=== PATIENT | male | born 1970 | race Caucasian/White ===

== ENCOUNTER 2024-10-18 07:37 | Inpatient (IN) ==
--- NOTE | 2024-09-21 13:27 | PAT Medication Instructions ---
Medication Instructions Date of Service September 21, 2024 Home Medications cholecalciferol (vitamin D3) 25 mcg (1,000 unit) capsule 50 mcg PO DAILY cranberry 500 mg capsule 1,000 mg PO QAM docusate sodium 100 mg capsule (Stool Softener) 100 mg PO DAILY levothyroxine 100 mcg tablet 100 mcg PO QAM lisinopril 20 mg-hydrochlorothiazide 12.5 mg tablet 1 tab PO QAM magnesium oxide 420 mg tablet 420 mg PO HS metformin 1,000 mg tablet 1,000 mg PO BID modafinil 200 mg tablet 200 mg PO QAM naproxen 500 mg tablet (Naprosyn) 500 mg PO QAM nicotine 7 mg/24 hr daily transdermal patch 1 patch transdermal DAILY nitrofurantoin 100 mg capsule 100 mg PO BID nortriptyline 50 mg capsule 50 mg PO HS pregabalin 50 mg capsule 75 mg PO BID rosuvastatin 20 mg tablet 20 mg PO HS semaglutide 1 mg/dose (4 mg/3 mL) subcutaneous pen injector (Ozempic) 1 mg subcut WK STOP 7 days before surgery semaglutide 1 mg/dose (4 mg/3 mL) subcutaneous pen injector (Ozempic) 1 mg subcut WK ASK your surgeon for instructions naproxen 500 mg tablet (Naprosyn) 500 mg PO QAM ASK your prescriber and surgeon nicotine 7 mg/24 hr daily transdermal patch 1 patch transdermal DAILY DO NOT take the morning of surgery cholecalciferol (vitamin D3) 25 mcg (1,000 unit) capsule 50 mcg PO DAILY cranberry 500 mg capsule 1,000 mg PO QAM docusate sodium 100 mg capsule (Stool Softener) 100 mg PO DAILY lisinopril 20 mg-hydrochlorothiazide 12.5 mg tablet 1 tab PO QAM metformin 1,000 mg tablet 1,000 mg PO BID modafinil 200 mg tablet 200 mg PO QAM Take morning of surgery With a small sip of water, OTHERWISE NOTHING TO EAT OR DRINK AFTER MIDNIGHT: levothyroxine 100 mcg tablet 100 mcg PO QAM nitrofurantoin 100 mg capsule 100 mg PO BID pregabalin 50 mg capsule 75 mg PO BID Take evening before surgery magnesium oxide 420 mg tablet 420 mg PO HS metformin 1,000 mg tablet 1,000 mg PO BID nitrofurantoin 100 mg capsule 100 mg PO BID nortriptyline 50 mg capsule 50 mg PO HS pregabalin 50 mg capsule 75 mg PO BID rosuvastatin 20 mg tablet 20 mg PO HS Other Notes If you have any questions please call us at [phone] or [phone] or [phone] or [phone]
--- NOTE | 2024-09-27 13:04 | Anesthesiology Consultation ---
Date of Service September 27, 2024 Assessment & Plan (1) Encounter for pre-operative examination: Chart Review Chart Review: Patient seen in Pre Admission Testing Teaching & Discussion Pre-Anesthesia Teaching/Discussion Notes: Instructed NPO after midnight before surgery, except medications with 15 cc of water. Medication instructions provided according to the PAT guidelines. History Surgery Operation Date: 10/18/24 09:35 Proposed Procedures p L3-L5 Decompression and Fusion with Spinal Cord Monitoring - Saleem Lamb, Height/Weight Height: 5 ft 11 in Weight: 107.048 kg Allergies Allergy/AdvReac Type Severity Reaction Status Date / Time aspirin Allergy Unknown Anaphylaxis Verified 09/20/24 11:43 ibuprofen Allergy Unknown Hives Verified 09/20/24 12:14 Penicillins Allergy Unknown mother was Verified 09/20/24 11:43 allergic Medications Home Medications Medication Instructions Recorded Confirmed Last Taken cholecalciferol (vitamin D3) 25 50 mcg PO DAILY 09/20/24 09/20/24 Unknown mcg (1,000 unit) capsule cranberry 500 mg capsule 1,000 mg PO QAM 09/20/24 09/20/24 Unknown docusate sodium 100 mg capsule 100 mg PO DAILY 09/20/24 09/20/24 Unknown (Stool Softener) levothyroxine 100 mcg tablet 100 mcg PO QAM 09/20/24 09/20/24 Unknown lisinopril 20 1 tab PO QAM 09/20/24 09/20/24 Unknown mg-hydrochlorothiazide 12.5 mg tablet magnesium oxide 420 mg tablet 420 mg PO HS 09/20/24 09/20/24 Unknown metformin 1,000 mg tablet 1,000 mg PO BID 09/20/24 09/20/24 Unknown modafinil 200 mg tablet 200 mg PO QAM 09/20/24 09/20/24 Unknown naproxen 500 mg tablet (Naprosyn) 500 mg PO QAM 09/20/24 09/20/24 Unknown nicotine 7 mg/24 hr daily 1 patch transdermal DAILY 09/20/24 09/20/24 Unknown transdermal patch nitrofurantoin 100 mg capsule 100 mg PO BID 09/20/24 09/20/24 Unknown nortriptyline 50 mg capsule 50 mg PO HS 09/20/24 09/20/24 Unknown pregabalin 50 mg capsule 75 mg PO BID 09/20/24 09/20/24 Unknown rosuvastatin 20 mg tablet 20 mg PO HS 09/20/24 09/20/24 Unknown semaglutide 1 mg/dose (4 mg/3 mL) 1 mg subcut WK 09/20/24 09/20/24 Unknown subcutaneous pen injector (Ozempic) Past Medical History Medical History Bladder stone Waiting to be scheduled w/urology Cirrhosis "Mild" Hx alcoholism Diabetes HLD (hyperlipidemia) HTN (hypertension) Hypothyroidism Lumbar disc disease Lumbar foraminal stenosis Neuropathy Suspected sleep apnea states he stops breathing while asleep No formal sleep study UTI (urinary tract infection) being treated w/abx Patient denies h/o stroke, seizures, heart attack, heart failure, blood clots/DVTs or blood transfusions. Past Surgical History Surgical History Hx of colonoscopy Hx of rotator cuff surgery Social History Smoking Status: Never smoker Do You Dip or Chew Tobacco: Yes (advised) Hx Alcohol Use: Yes (quit drinking heavily in 2001 --has not drank any alcohol in 4 mos) Alcohol type: beer alcohol intake frequency: a few times a month Hx Substance Use: No substance use type: does not use Review of Systems Patient denies chest pain, shortness of breath, dyspnea on exertion, reflux, fever, chills, cough, wheezing, or palpitations. Physical Exam Vital Signs Vitals BP P TEMP SP02 % on RA RESP Physical Patient resting comfortably in chair in no acute distress, alert and oriented, responding appropriately throughout visit Full cervical extension range of motion without pain TMD __ finger breadths Mallampati Score ___ Dentition: intact, denies chipped or loose teeth, caps/crowns, implants or bridges Lungs: normal respiratory effort. Good air movement, clear throughout to auscultation, no adventitious breath sounds Cardiac: regular rate and rhythm, no murmurs noted Carotid arteries: negative bruit bilat
--- NOTE | 2024-09-27 13:08 | Anesthesiology Consultation ---
Date of Service September 27, 2024 Assessment & Plan (1) Encounter for pre-operative examination: - Check BSG DOS - Infectious disease screening: Per assessment on 09/27/24- No known recent infectious disease contacts or current infectious disease symptoms. - Semaglutide instructions: Patient informed by PAT to stop 7 days prior to surgery- voiced understanding. DOS 10/18/24. Advised last dose to be 10/06/24. - Patient acceptable risk for surgery pending surgeon-ordered PCP preop evaluation ([facility], appt 10/04). Chart Review Chart Review: Patient seen in Pre Admission Testing Teaching & Discussion Pre-Anesthesia Teaching/Discussion Notes: Instructed NPO after midnight before surgery,except medications with 15 cc of water. Medication instructions provided according to the PAT guidelines. History Surgery Operation Date: 10/18/24 09:35 Proposed Procedures p L3-L5 Decompression and Fusion with Spinal Cord Monitoring - Saleem Lamb, Height/Weight Height: 5 ft 11 in Weight: 108.6 kg Allergies Allergy/AdvReac Type Severity Reaction Status Date / Time aspirin Allergy Unknown Anaphylaxis Verified 09/20/24 11:43 ibuprofen Allergy Unknown Hives Verified 09/20/24 12:14 Penicillins Allergy Unknown mother was Verified 09/20/24 11:43 allergic Medications Home Medications Medication Instructions Recorded Confirmed Last Taken cholecalciferol (vitamin D3) 25 50 mcg PO DAILY 09/20/24 09/20/24 Unknown mcg (1,000 unit) capsule cranberry 500 mg capsule 1,000 mg PO QAM 09/20/24 09/20/24 Unknown docusate sodium 100 mg capsule 100 mg PO DAILY 09/20/24 09/20/24 Unknown (Stool Softener) levothyroxine 100 mcg tablet 100 mcg PO QAM 09/20/24 09/20/24 Unknown lisinopril 20 1 tab PO QAM 09/20/24 09/20/24 Unknown mg-hydrochlorothiazide 12.5 mg tablet magnesium oxide 420 mg tablet 420 mg PO HS 09/20/24 09/20/24 Unknown metformin 1,000 mg tablet 1,000 mg PO BID 09/20/24 09/20/24 Unknown modafinil 200 mg tablet 200 mg PO QAM 09/20/24 09/20/24 Unknown naproxen 500 mg tablet (Naprosyn) 500 mg PO QAM 09/20/24 09/20/24 Unknown nicotine 7 mg/24 hr daily 1 patch transdermal DAILY 09/20/24 09/20/24 Unknown transdermal patch nitrofurantoin 100 mg capsule 100 mg PO BID 09/20/24 09/20/24 Unknown nortriptyline 50 mg capsule 50 mg PO HS 09/20/24 09/20/24 Unknown pregabalin 50 mg capsule 75 mg PO BID 09/20/24 09/20/24 Unknown rosuvastatin 20 mg tablet 20 mg PO HS 09/20/24 09/20/24 Unknown semaglutide 1 mg/dose (4 mg/3 mL) 1 mg subcut WK 09/20/24 09/20/24 Unknown subcutaneous pen injector (Ozempic) Past Medical History Medical History (Updated 09/27/24 @ 14:19 by Blaire Osorio) Bladder stone Cirrhosis "Mild" Hx alcoholism Diabetes HLD (hyperlipidemia) HTN (hypertension) Hypothyroidism Lumbar disc disease Lumbar foraminal stenosis Neuropathy Suspected sleep apnea states he stops breathing while asleep, + snoring No formal sleep study Exercise / Class Metabolic Activity II 4-5 Yardwork/Stairs/Walk up hill (one FS: no CP, no SOB) Past Surgical History Surgical History Hx of colonoscopy Hx of rotator cuff surgery Right Past Anesthesia History No Hx of Anesthesia Complications and No Family Hx of Anesthesia Complications History of PONV No Hx of PONV and Hx of Motion Sickness (Rare) Social History Smoking Status: Never smoker Do You Dip or Chew Tobacco: Yes (Daily- Advised none DOS) Hx Alcohol Use: Yes (Hx heavy ETOH use in 2001/hx alcoholism) alcohol intake frequency: holidays/special occasions only (Seldom- a few times/year) Hx Substance Use: No substance use type: does not use Review of Systems Recent UTI s/p abx completion 09/26/24. Patient denies chest pain, shortness of breath, dyspnea on exertion, fever, chills, cough, wheezing, palpitations. Physical Exam Vital Signs BP 118/80 P 100 TEMP 98.3 SP02 97%RA RESP 16 Physical Full cervical extension range of motion. Full TMJ range of motion. TMD > 3.5 finger breaths Mallampati Score II Dentition: full upper/lower dentures Lungs: clear throughout to auscultation Cardiac: regular rate and rhythm, no murmurs noted Spine: normal Carotid arteries: negative bruit Extremities: no LE edema Short almodovar- advised to trim prior to surgery Lab Results Anesthesia Preop Results Results Anesthesia Widget: WBC 7.36 K/ul (4.8-10.8) 09/27/24 Hgb 15.1 g/dl (14.0-18.0) 09/27/24 Hct 43.6 % (42.0-52.0) 09/27/24 Plt 238 K/uL (130-400) 09/27/24 Na 138 mmol/L (136-145) 09/27/24 K 3.8 mmol/L (3.5-5.1) 09/27/24 Cl 102 mmol/L (98-107) 09/27/24 CO2 26 mmol/L (21-32) 09/27/24 BUN 10 mg/dl (6-23) 09/27/24 Creat 0.82 mg/dl (0.6-1.4) 09/27/24 Glucose Level 265 mg/dl (70-99(Fasting)) H 09/27/24 PT 9.9 Seconds (9.0-12.0) 09/27/24 PTT 25 Seconds (21-31) 09/27/24 INR 0.9 (0.9-1.1) 09/27/24 HA1c 7.3 % (4.5-5.6) H 09/27/24 Urine Color Yellow 09/27/24 Urine Appearance Cloudy (Clear) A 09/27/24 Urine pH 5.5 (4.5-7.5) 09/27/24 Urine Specific [place] 1.029 (1.000-1.030) 09/27/24 Urine Protein Trace (Negative) H 09/27/24 Urine Glucose (UA) 2+ (Negative) H 09/27/24 Urine Ketones Trace (Negative) H 09/27/24 Urine Blood Trace (Negative) H 09/27/24 Urine Nitrite Negative (Negative) 09/27/24 Urine Bilirubin Negative (Negative) 09/27/24 Urine Urobilinogen Negative (Negative) 09/27/24 Urine Leukocyte Esterase 2+ (Negative) H 09/27/24 Urine WBC (Auto) >50 /hpf (0-5) H 09/27/24 Urine RBC (Auto) 0-2 /hpf (0-2) 09/27/24 Urine Hyaline Casts (Auto) 0-2 /lpf (0-2) 09/27/24 Urine Epithelial Cells (Auto) 6-10 /hpf (0-2) H 09/27/24 Urine Bacteria (Auto) None Seen (None Seen) 09/27/24 Blood Type A Negative 09/27/24 Antibody Screen NEGATIVE 09/27/24 Testing Laboratory Results Surgeon's office made aware of elevated glucose/A1C* Urine culture (09/27/24): probable skin michelle Electrocardiogram Date: 09/27/24 NSR at 92bpm. Rightward axis. iRBBB. Chest X-Ray Date: 09/27/24 IMPRESSION: Normal chest X-ray. No acute cardiopulmonary abnormalities identified.
[2024-10-18] MEDS ORDERED: fentaNYL citrate PF 100 MCG/2 ML VIAL ONE ×2 (08:14→09:48)
[2024-10-18] MEDS ORDERED: PROPOFOL IV EMULSION 10 MG/ML 20 ML VIAL IV ONE (08:14)
[2024-10-18] MEDS ORDERED: MIDAZOLAM HCL 1 MG/ML 2ML VIAL ONE (08:14)
[2024-10-18] MEDS ORDERED: ROCURONIUM BROMIDE 10 MG/ML 5 ML VIAL IV ONE (08:14)
[2024-10-18] MEDS ORDERED: ONDANSETRON INJ 2 MG/ML 2 ML VIAL ONE (08:14)
[2024-10-18] MEDS ORDERED: DEXAMETHASONE SOD INJ 4 MG/ML VIAL ONE (08:14)
[2024-10-18] MEDS ORDERED: LIDOCAINE 2% 2 ML VIAL/AMP(20MG/ML) INFIL ONE (08:14)
[2024-10-18] MEDS: LR 60ML/HR IV SCH (08:27)
[2024-10-18] MEDS: LR 15ML/HR IV SCH (08:27)
[2024-10-18] MEDS: ACETAMINOPHEN 500 MG TAB PO SCH (08:27)
[2024-10-18] MEDS: GABAPENTIN 900 MG DOSE PO SCH (08:27)
[2024-10-18] MEDS ORDERED: ONDANSETRON INJ 2 MG/ML 2 ML VIAL IV PRN ×2 (08:53→14:00)
[2024-10-18] MEDS ORDERED: ATROPINE SULFATE 0.1 MG/ML 10ML SYR IV PRN (08:53)
[2024-10-18] MEDS ORDERED: ePHEDrine sulfate 50 MG/ML AMP IV PRN (08:53)
--- NOTE | 2024-10-18 08:53 | History & Physical Bridge Note ---
Date of Service October 18, 2024 History & Physical Bridge Note I have examined the patient, reviewed the History & Physical and in the interval since the performance of the History & Physical I have noted the following changes of clinical significance: no changes noted
--- NOTE | 2024-10-18 08:54 | History & Physical Report ---
Date of Service October 18, 2024 Assessment & Plan (1) Lumbosacral spondylosis with radiculopathy: Plan: L3-L5 decompression and fusion History of Present Illness Chief Complaint: Back and bilateral leg pain Primary Care Provider: Rob Mcdaniel PA-C This is a 53-year-old male presents problems with diagnosis of failing course of nonoperative care is here for surgical intervention. Allergies Allergy/AdvReac Type Severity Reaction Status Date / Time aspirin Allergy Severe Anaphylaxis Verified 10/18/24 08:07 ibuprofen Allergy Severe Hives Verified 10/18/24 08:07 Penicillins Allergy Unknown mother was Verified 10/18/24 08:07 allergic Home Medications Medication Instructions Recorded Confirmed Type cholecalciferol (vitamin D3) 25 50 mcg PO DAILY 09/20/24 10/18/24 History mcg (1,000 unit) capsule cranberry 500 mg capsule 1,000 mg PO QAM 09/20/24 10/18/24 History docusate sodium 100 mg capsule 100 mg PO DAILY 09/20/24 10/18/24 History (Stool Softener) levothyroxine 100 mcg tablet 100 mcg PO QAM 09/20/24 10/18/24 History lisinopril 20 2 tab PO QAM 09/20/24 10/18/24 History mg-hydrochlorothiazide 12.5 mg tablet (Zestoretic) magnesium oxide 420 mg tablet 420 mg PO HS 09/20/24 10/18/24 History metformin 1,000 mg tablet 1,000 mg PO BID 09/20/24 10/18/24 History modafinil 200 mg tablet (Provigil) 200 mg PO QAM 09/20/24 10/18/24 History naproxen 500 mg tablet (Naprosyn) 500 mg PO QAM 09/20/24 10/18/24 History nicotine 7 mg/24 hr daily 1 patch transdermal DAILY 09/20/24 09/20/24 History transdermal patch nitrofurantoin 100 mg capsule 100 mg PO BID 09/20/24 10/18/24 History nortriptyline 50 mg capsule 50 mg PO HS 09/20/24 10/18/24 History pregabalin 50 mg capsule 75 mg PO BID 09/20/24 10/18/24 History rosuvastatin 20 mg tablet 20 mg PO HS 09/20/24 10/18/24 History semaglutide 1 mg/dose (4 mg/3 mL) 1 mg subcut WK 09/20/24 10/18/24 History subcutaneous pen injector (Ozempic) Past Med/Surg History Problem List (Updated 10/18/24 @ 08:53 by Saleem Lamb DO) Lumbosacral spondylosis with radiculopathy Encounter for pre-operative examination Medical History (Updated 10/18/24 @ 08:53 by Saleem Lamb DO) Lumbar foraminal stenosis Lumbar disc disease Cirrhosis "Mild" Hx alcoholism Neuropathy HLD (hyperlipidemia) HTN (hypertension) Hypothyroidism Suspected sleep apnea states he stops breathing while asleep, + snoring No formal sleep study Diabetes Bladder stone Surgical History Hx of colonoscopy Hx of rotator cuff surgery Right Social History Smoking Status: Never smoker Tobacco Type: Smokeless Tobacco (Dip or Chew) Second Hand Exposure: No; Do You Dip or Chew Tobacco: Yes (Daily- Advised none DOS); Tobacco Cessation Education Requested by Patient: No Hx Alcohol Use: Yes (Hx heavy ETOH use in 2001/hx alcoholism) Alcohol type: beer Hx Substance Use: No Preferred Language: Swedish Communication Ability: Effective Retail Training Manager Required: No Beliefs That Will Affect Care: None Current Living Situation: Spouse Other Information That Helps Us Care for You: No Feels Safe at Home: Yes Safety Concerns: Feels Safe At This Time Assistive Devices: Denture - Upper, Denture - Lower, Glasses and Hearing Aid - Bilateral Physical Exam Physical Exam: Patient is alert and oriented Heart regular in rhythm Lungs clear Results & Data Results & Data Vital Signs (Past 12 Hours) Vital Signs Temp Pulse Resp BP Pulse Ox O2 Del Method 10/18/24 08:12 36.7 C 81 18 139/90 96 Room Air
[2024-10-18] MEDS: CLINDAMYCIN/D5W 900 MG/50 ML BAG IV SCH (09:26)
[2024-10-18] MEDS ORDERED: KETAMINE HCL 10MG/ML SYR ONE (09:41)
[2024-10-18] MEDS: BUPIVACAINE/EPINEPHRINE 0.25% 1:200,000 30 ML VIAL ONE (09:52)
[2024-10-18] MEDS: ceFAZolin 330 MG/ML 1 GM VIAL ONE (10:11)
[2024-10-18] MEDS ORDERED: SUGAMMADEX SODIUM 200 MG/2 ML VIAL IV ONE (10:56)
[2024-10-18] MEDS: FLOSEAL HEMOSTATIC MATRIX 10ML TOP ONE (10:59)
--- NOTE | 2024-10-18 11:03 | Operative Report ---
Post Operative Report Pre & Post Diagnosis Operation Date: 10/18/24 09:35 Pre-Op Diagnosis: (1) Lumbosacral spondylosis with radiculopathy: Post-Op Diagnosis: (1) Lumbosacral spondylosis with radiculopathy: I identified the patient and participated in the time-out.: Yes Procedure Operation Date: 10/18/24 09:35 Actual Procedures #1 lumbar decompression bilateral medial facetectomies and foraminotomies L3-L4 L4-5. #2 posterior spinal fusion L4-5 per #3 placed posterior instrumentation L4-5. #4 interbody fusion L4-5. #5 placement of Spira 14 x 26 mm x 2 at L4-5 per #6 posterior locally harvested morselized autograft posterior gutters. #7 placement fuse collagen sponge, with Koros in the posterior lateral gutters and os design interbody space. #8 application of versa wrap over the exposed dura. Surgeon Saleem Lamb, DO Plumber Assistant Radha Alexander Estimated Blood Loss 300 Findings See Below Patient is 5 foot 11 weighing over 106 kg with a BMI in excess of 32. The patient's body habitus did contribute to significant technical difficulty with positioning exposure and the procedure itself and at least 50% increased operative time. Specimens None Indications This is a 53-year-old male presents above his diagnosis of failing course of nonoperative care is here for surgical intervention. Description of Procedure Patient was met with identified informed consent obtained. Patient was then taken to the operative suite underwent intubation placed in a prone position on the [place] able to have the Maycol frame. All bony promises well-padded eyes inspected to ensure no external precipice spine. This point lumbar spine was prepped and draped in normal sterile fashion. Sharp dissection with the assistance of Bovie cautery performed down to and exposing the lamina and transverse processes of L4-L5. From caudal to cephalad fashion complete laminectomy of L4 was performed including bilateral male facetectomies and foraminotomies addressing severe subarticular and foraminal stenosis think. Then performed a partial laminectomy L3 with bilateral medial facetectomies addressing all subarticular stenosis. Pedicle screws was then placed in L4-L5 bilaterally with assistance of fluoroscopy process letitia placed. By way of transforaminal approach on the right discectomy of L4-5 was performed endplates guarded distal cortical bleeding bone and a 14 x 26 mm Spira cage filled with os design bone graft tapped in position. Then proceeded to the left transforaminal region at L4-5. Again discectomy performed endplates guided system subcortical bleeding bone and a second 14 x 26 mm Spira cage filled with os designed tapped in position. The rods then compressed locked in final position bilaterally. The transverse processes of L4-L5 burred to subcortical bleeding bone. Infuse collagen sponge, with Koros and local autograft placed in posterior gutters. Versa wrap placed over the exposed dura. 15 round YENNIFER drain inserted. The incision was then closed with 1 Vicryl and fascia 2-0 Vicryl subcutaneously and 4 Monocryl for final skin closure. Steri-Strips sterile dressing placed. Patient waken taken to PACU in stable condition. Please note spinal cord monitoring was utilized out the procedure no changes noted. Radha Alexander was present out the entire surgery involved the patient positioning complex portions of the surgery and final skin closure. Im ordering 20 grams of Triple [place] Collagen Powder ([id number] [id number]) to treat an incision wound that was caused by a spine procedure. The incision is approximately 2 cm(W) x 4 cm(L) into the joint (D) in size and is a full thickness wound. Triple [place] collagen comes in 1 gram packets so 20 packets were ordered. Given the size of the wound, with light to moderate exudate I chose to order a 20 day supply. The patient will be provided instructions for proper application of the collagen wound kit. The patient will be asked to apply the collagen powder daily and then cover it with sterile dressings dispensed. Collagen was selected as I expect the collagen to attract monocytes and fibroblasts, act as a sacrificial substrate for MMPs, and ultimately proved a matrix for tissue and vessel growth. The collagen will act as a primary dressing in this scenario. It is medically necessary for proper healing of these wounds to improve bioavailability and contact with each wound surface, this is also to help prevent infection of wounds and promote healing ultimately leading to a better healing outcome and limit the risk of infection. I attest to the content of the Intraoperative Record and any orders documented therein. Any exceptions are noted below.
--- NOTE | 2024-10-18 11:13 | Fluoroscopy Report ---
FL lumbar spine 2-3V CLINICAL HISTORY: L3-L5 Decompression/Fusion TECHNIQUE: 2 views were obtained with the C-arm in the OR with the above procedure. Total fluoroscopy time was 16.5 seconds. Radiation dose was 12.9 mGy. Comparison: Comparison is made to MRI lumbar spine 07/14/2020 FINDINGS/IMPRESSION: Intraoperative images were obtained of L3-L5 discectomy and fusion Please correlate with intraoperative fluoroscopy and operative report. ACT 112: Negative or not required by law. Electronically signed by: Sebastián Gómez M.D. 10/18/2024 11:11 AM
--- OUTSIDE RECORDS SUMMARY | 2024-10-18 11:22 | External Medical Summary | Summary of Care ---
Author Name Unknown Organization [facility] Address [address] [facility] [place] [address] Phone [phone] Care Team Providers Care Manager Lvn Name Role Phone Rob Mcdaniel PA-C Primary Care Provider Reason for Visit * Reason Comments Urinary Tract Infection Symptoms Pt. Was seen by /2/2024. Scheduled this coming Thursday for bladder retention testing. Nov 28. Scheduled to get kidney stone blasted from bladder region. Pt. Feels he has another UTI. Last antibiotic was Thursday. Having difficulty voiding, cloudy urine and odor noted. Frequency with small amounts. No fevers. Last bladder scan showed post void residual of 482cc. Encounter Details Date Type Department Care Team (Late Contact Info) Description 10/12/2024 9:10 AM EST [facility] [address] [place] [address] Kishore Lara PA-C [address] [place] [address] [address] Recurrent UTI* Allergies Active Allergy Reactions Criticality Noted Date Comments Aspirin Anaphylaxis High 02/02/2019 Ibuprofen Hives 02/02/2019 Empagliflozin Other (Please comment) 09/04/2024 Gave him heart palpations and made him feel like he was having a heart attack Penicillins Anaphylaxis High 02/02/2019 documented as of this encounter (statuses as of 10/12/2024) Medications levothyroxine (LEVOXYL) 100 MCG Tablet Take 1 Tablet by mouth daily first thing in the morning. Active Modafinil 100 MG Oral TabletIndication s:patient does not recall dose 2 times a day. Active Naproxen 500 MG Oral Tablet 1 Tablet 2 times a day with morning and evening meals. Active Butalbital-APAP- Caffeine 50-325-40 MG Oral Tablet (Fioricet) Take 1 Tablet by mouth. 0 Active glipiZIDE 10 MG Oral Tablet (Glucotrol) Take by mouth. 0 Active Lisinopril-hydro CHLOROthiazide 20-12.5 MG Oral Tablet Take 1 Tablet by mouth. Active Magnesium 200 MG Oral Tablet take 1 daily by mouth Active metFORMIN HCl 1000 MG Oral Tablet (Glucophage) Take 1 Tablet by mouth. Active Nortriptyline HCl 25 MG Oral Capsule (Pamelor) Take 2 Capsules by mouth. Active Rosuvastatin Calcium 5 MG Oral Tablet Take by mouth. Act violet Ozempic (0.25 or 0.5 MG/DOSE) 2 MG/1.5ML Solution Pen-injector (Semaglutide(0.2 5 or 0.5MG/DOS)) Inject under the skin. 0 Active Vitamin D3 25 MCG (1000 UT) Oral Tablet (Vitamin D3) 2 Active Pregabalin 25 MG Oral Capsule (Lyrica) Take 1 Capsule by mouth every 8 hours. Active Nicotine 7 MG/24HR Transdermal Patch 24 Hour (Nicoderm CQ) Place 1 Patch topically on the skin daily. 4 Active Docusate Sodium 100 MG Oral Capsule (Colace) Take 1 Capsule by mouth in the morning and 1 Capsule before bedtime. 4 Active Nitrofurantoin 50 MG/10ML Oral Suspension Take 100 mg by mouth in the morning and 100 mg before bedtime. 4 Active Nitrofurantoin Monohyd Macro 100 MG Oral Capsule (Macrobid) Take 1 Capsule by mouth in the morning and 1 Capsule before bedtime. Do all this for 10 days. With food until gone. 20 Capsule 4 10/22/20 24 Active documented as of this encounter (statuses as of 10/12/2024) Active Problems Problem Noted Date Diagnosed Date Type 2 diabetes mellitus 09/21/2020 Essential hypertension 08/05/2018 Hyperlipidemia 08/05/2018 Hypothyroidism 08/05/2018 documented as of this encounter (statuses as of 10/12/2024) Immunizations Name Administration Dates Next Due TDAP (age 10 and older)(Boostrix) 02/18/2021 documented as of this encounter Social History Tobacco Use Types Packs/Day Years Used Date Smoking Tobacco: Former Smokeless Tobacco: Current Chew Alcohol Use Standard Drinks/Week Comments Not Currently 0 (1 standard drink = 0.6 oz pur e alcohol) Sex and Gender Information Value Date Recorded Sex Assigned at Not on file Legal Sex Male 5:07 AM EST Gender Identity Not on file Sexual Orientation Not on file documented as of this encounter Last Filed Vital Signs Vital Sign Reading Time Taken Comments Blood Pressure 127/86 10/12/2024 9:04 AM EST Pulse 86 10/12/2024 9:04 AM EST Temperature 36.3 C (97.4 F) 10/12/2024 9:04 AM ES T Respiratory Rate 16 10/12/2024 9:04 AM EST Oxygen Saturation 99% 10/12/2024 9:04 AM EST Inhaled Oxygen Concentration - - Weight 108 kg (238 lb) 10/12/2024 9:04 AM EST Height - - Body Mass Index 32.28 03/10/2024 10:48 AM EDT documented in this encounter Patient Instructions * Patient Instructions* Kishore Lara PA-C - 10/12/2024 9:42 AM EST KEEP SCHEDULED APPOINTMENTS DIRECTED; RETURN TO or SEE PCP IF NEEDED. documented in this encounter Progress Notes * Kishore Lara PA-C - 10/12/2024 9:11 AM EST Subjective: Jaswinder Shannon is a 53 year old male. Chief Complaint Patient presents with Urinary Tract Infection Symptoms Pt. Was seen by [email or web address]/2/2024. Scheduled this coming Thursday for bladder retention testing. Nov 28. Scheduled to get kidney stone blasted from bladder region. Pt. Feels he has another UTI. Last antibiotic was Thursday. Having difficulty voiding, cloudy urine and odor noted. Frequency with small amounts. No fevers. Last bladder scan showed post void residual of 482cc. Nursing Notes: Coty Frye RN 10/12/24 0914 Signed Nursing Notes: CC: Chief Complaint Patient presents with Urinary Tract Infection Symptoms Pt. Was seen by [email or web address]/2/2024. Scheduled this coming Thursday for bladder retention testing. Nov 28. Scheduled to get kidney stone blasted from bladder region. Pt. Feels he has another UTI. Last antibiotic was Thursday. Having difficulty voiding, cloudy urine and odor noted. Frequency with small amounts. No fevers. Last bladder scan showed post void residual of 482cc. Brief Hx: Pt. Feels urinary retention caused by back nerve issues. PT. Scheduled for back surgery on . Duration/Onset: yesterday OTC meds: nothing. Accompanied by: self PT. RESTRICTED ON MEDICATION USAGE CURRENTLY DUE TO IMPENDING SURGERY. HPI: UTI SYMPTOMS COME BACK SOON HE IS OFF THE MACROBID; SEEING UROLOGY FOR THE URINARY RETENTION; FEELS THE BLADDER RETENTION MAY BE COMING FROM THE BACK ISSUES; SCHEDULED FOR SURGERY OF THE BACK NEXT WEEK; SCHEDULED FOR BLADDER SCAN THIS THURSDAY All other systems reviewed and are negative. Patient Active Problem List Diagnosis Essential hypertension Hyperlipidemia Hypothyroidism Type 2 diabetes mellitus (HCC) Current Outpatient Medications Medication Sig Dispense Refill levothyroxine (LEVOXYL) 100 MCG Tablet Take 1 Tablet by mouth daily first thing in the morning. Modafinil 100 MG Oral Tablet 2 times a day. Naproxen 500 MG Oral Tablet 1 Tablet 2 times a day with morning and evening meals. Jelyibnikh-KDQK-Ulvkwgid 50-325-40 MG Oral Tablet (Fioricet) Take 1 Tablet by mouth. glipiZIDE 10 MG Oral Tablet (Glucotrol) Take by mouth. Lisinopril-hydroCHLOROthiazide 20-12.5 MG Oral Tablet Take 1 Tablet by mouth. Magnesium 200 MG Oral Tablet take 1 daily by mouth metFORMIN HCl 1000 MG Oral Tablet (Glucophage) Take 1 Tablet by mouth. Nortriptyline HCl 25 MG Oral Capsule (Pamelor) Take 2 Capsules by mouth. Rosuvastatin Calcium 5 MG Oral Tablet Take by mouth. Ozempic (0.25 or 0.5 MG/DOSE) 2 MG/1.5ML Solution Pen-injector (Semaglutide(0.25 or 0.5MG/DOS)) Inject under the skin. Vitamin D3 25 MCG (1000 UT) Oral Tablet (Vitamin D3) Pregabalin 25 MG Oral Capsule (Lyrica) Take 1 Capsule by mouth every 8 hours. Nicotine 7 MG/24HR Transdermal Patch 24 Hour (Nicoderm CQ) Place 1 Patch topically on the skin daily. Docusate Sodium 100 MG Oral Capsule (Colace) Take 1 Capsule by mouth in the morning and 1 Capsule before bedtime. Nitrofurantoin 50 MG/10ML Oral Suspension Take 100 mg by mouth in the morning and 100 mg before bedtime. Nitrofurantoin Monohyd Macro 100 MG Oral Capsule (Macrobid) Take 1 Capsule by mouth in the morning and 1 Capsule before bedtime. Do all this for 10 days. With food until gone. 20 Capsule 0 No current facility-administered medications for this visit. Review of patient's allergies indicates: Allergen Reactions Aspirin Anaphylaxis Penicillins Anaphylaxis Ibuprofen Hives Jardiance [Empagliflozin] Other (Please comment) Gave him heart palpations and made him feel like he was having a heart attack OBJECTIVE: BP 127/86 (BP Site: Left Arm, BP Position: Sitting, BP Cuff Size: Large) | Pulse 86 | Temp 36.3 C(97.4 F) (Tympanic) | Resp 16 | Wt 108 kg (238 lb) | SpO2 99% | BMI 32.28 kg/m | BSA 2.34 m Review of Systems: See HPI. All other systems reviewed and are negative. PHYSICAL EXAM: General: alert, healthy, and no distress Head: Normocephalic, No masses, lesions, tenderness or abnormalities Eye Exam: PERRLA, extraocular movements intact, conjunctiva are pink and non- injected, sclera clear Neuro Exam: alert & oriented x 3 with fluent speech, no focal motor/sensory deficits, gait normal, reflexes normal and symmetric ASSESSMENT/PLAN: Recurrent UTI (Primary) - CULTURE, URINE, QUANTITATIVE; Future; Expected date: 10/12/2024 Other orders - Nitrofurantoin Monohyd Macro 100 MG Oral Capsule (Macrobid); Take 1 Capsule by mouth in the morning and 1 Capsule before bedtime. Do all this for 10 days. With food until gone. Kishore Lara PA-C 12/11/24 documented in this encounter Nursing Notes * Coty Frye RN - 10/12/2024 9:08 AM EST Nursing Notes: CC: Chief Complaint Patient presents with Urinary Tract Infection Symptoms Pt. Was seen by [email or web address]/2/2024. Scheduled this coming Thursday for bladder retention testing. Nov 28. Scheduled to get kidney stone blasted from bladder region. Pt. Feels he has another UTI. Last antibiotic was Thursday. Having difficulty voiding, cloudy urine and odor noted. Frequency with small amounts. No fevers. Last bladder scan showed post void residual of 482cc. Brief Hx: Pt. Feels urinary retention caused by back nerve issues. PT. Scheduled for back surgery on . Duration/Onset: yesterday OTC meds: nothing. Accompanied by: self PT. RESTRICTED ON MEDICATION USAGE CURRENTLY DUE TO IMPENDING SURGERY. documented in this encounter Plan of Treatment Upcoming Encounters Date Type Department Care Team (Late st Contact Info) Description 10/14/2024 9:00 AM EST Office Visit Urology, [place] [address] [place] [address] 11/28/2024 9:00 AM EST Procedure Only Urology, [place] [address] [place] [address] Cleo Darden MD [address] [place] [address] Pending Results Name Type Priority Associated Diagnoses Date /Time CULTURE, URINE, QUANTITATIVE Lab Routine Recurrent UTI 10/12/2024 9:45 AM EST Scheduled Orders Name Type Priority Associated Diagnoses Orde r Schedule CULTURE, URINE, QUANTITATIVE Lab Routine Recurrent UTI Expected: 10/12/2024, Expires: 10/12/2025 Health Maintenance Due Date Last Done Comments Lipid Panel 1972 Pneumococcal Vaccine: Pediatrics (0 to 5 Years) and At-Risk Patients (6 to 64 Years) (1 of 2 - PCV) 1978 Depression Screening 1984 HIV Screening 1987 Albumin/Creatinine Ratio 1990 Diabetic Eye Exam 1990 Diabetic Foot Exam 1990 Hepatitis C Screening 1990 Hepatitis B Vaccine (1 of 3 - 19+ 3-dose series) 1991 Cologuard 2017 Colonoscopy 2017 Colorectal Cancer Screening 2017 Fecal Occult Blood Test 2017 Sigmoidoscopy 2017 TSH 02/03/2020 02/02/2019 HbA1c 03/21/2021 09/21/2020, 02/15/2018 GFR 07/10/2021 07/10/2020, 02/02/2019 Zoster Vaccines (1 of 2) 2022 COVID-19 Vaccine ( season) 2024 Influenza Vaccine (FLU shot) (#1) 2024 09/06/2018, 08/21/2017, 08/10/2015, Additional history exists DTap/Tdap Vaccines (2 - Td or Tdap) 02/18/2031 02/18/2021 HPV (Gardasil) Vaccine Aged Out No lo nger eligible based on patient's age to complete this topic MENINGOCOCCAL (MENACTRA/MENVEO) Aged Out No longer eligible based on patient's age to complete this topic documented as of this encounter Medical Devices Not on filedocumented as of this encounter Visit Diagnoses Diagnosis Recurrent UTI- Primary Urinary tract infection, site not specified documented in this encounter Care Teams Manager Lvn Relationship Specialty Start Date End Date Rob Mcdaniel PA-C [address] [facility] [place] [id number] PCP - General Physician Locksmith 09/21/22 documented as of this encounter"
--- OUTSIDE RECORDS SUMMARY | 2024-10-18 11:22 | External Medical Summary | Summary of Care ---
Author Name Unknown Organization [facility] Address [address] [facility] [place] [address] Phone [phone] Care Team Providers Care Toy Painter Name Role Phone Rob Mcdaniel PA-C Primary Care Provider Reason for Visit * Reason Comments Urinary Tract Infection Symptoms Pt. Was seen by [email or web address]/2/2024. Scheduled this coming Thursday for bladder retention [...] Visit [facility] [address] [place] [address] [address] Kishore Lara PA-C [address] [place] [address] [address] Recurrent UTI* Allergies Active Allergy Reactions Criticality [...] Tract Infection Symptoms Pt. Was seen by [email or web address]/2/2024. Scheduled this coming Thursday for bladder retention [...] a day with morning and evening meals. Xohdrmumjl-UARU-Zudfcmtl 50-325-40 MG Oral Tablet (Fioricet) Take 1 [...] Tract Infection Symptoms Pt. Was seen by [email or web address]/2/2024. Scheduled this coming Thursday for bladder retention [...] 10/14/2024 9:00 AM EST Office Visit Urology, [place] [address] [place] [address] 11/28/2024 9:00 AM EST Procedure Only Urology, [place] [address] [place] [address] Cleo Darden MD [address] [place] [address] Pending Results Name Type Priority Associated Diagnoses [...] specified documented in this encounter Care Teams Toy Painter Relationship Specialty Start Date End Date Rob Mcdaniel PA-C [address] [facility] [place] [address] PCP - General Physician Trauma Counsellor 09/21/22 documented as of this encounter"
--- OUTSIDE RECORDS SUMMARY | 2024-10-18 11:22 | External Medical Summary ---
Author Name Unknown Address Unknown Organization : Laboratory Report Ordering Provider Test Date Status HUYEN MURILLO 10/03/2024 08:54:00 Final Observation Date Value Abnormality Reference (Units ) Status Color of Urine by Auto 10/03/2024 08:54:00 Yellow Light Yellow, Yellow Final Clarity, Urine 10/03/2024 08:54:00 Cloudy Abnormal Clear Final Glucose [Mass/volume] in Urine by Automated test strip 10/03/2024 08:54:00 500 Abnormal Negative (mg/dL) Final Bilirubin.total [Presence] in Urine by Automated test strip 10/03/2024 08:54:00 Negative Negative Final Ketones [Mass/volume] in Urine by Automated test strip 10/03/2024 08:54:00 15 Abnormal Negative (mg/dL) Final Specific gravity, Urine 10/03/2024 08:54:00 1.020 1.003-1.030 Final Hemoglobin [Presence] in Urine by Automated test strip 10/03/2024 08:54:00 Trace-intact Abnormal Negative Final pH, Urine 10/03/2024 08:54:00 5.5 5.0, 5.5, 6.0, 6.5, 7.0, 7.5 (units) Final Protein [Mass/volume] in Urine by Automated test strip 10/03/2024 08:54:00 30 Abnormal Negative (mg/dL) Final Urobilinogen, Urine 10/03/2024 08:54:00 0.2 0.2, 1.0 (mg/dL) Final Nitrite [Presence] in Urine by Automated test strip 10/03/2024 08:54:00 Negative Negative Final Leukocyte esterase [Presence] in Urine by Automated test strip 10/03/2024 08:54:00 Trace Abnormal Negative Final Performing Location
--- OUTSIDE RECORDS SUMMARY | 2024-10-18 11:22 | External Medical Summary | Summary of Care ---
Author Name Unknown Organization [facility] Address [address] [place] [address] Phone [phone] Care Team Providers Care Software Support Representative Name Role Phone Rob Mcdaniel PA-C Primary Care Provider Reason for Visit * Reason Onset Date Comments Appointment 09/30/2024 TRIAGE 09/30/2024 Encounter Details Date Type Department Care Team (Late st Contact Info) Description 09/30/2024 Telephone Urology, [place] [address] [place] [address] Services, Scheduling [address] [place] [address] Appointment; TRIAGE Allergies Active Allergy Reactions Criticality Noted Date Comments Aspirin Anaphylaxis High 02/02/2019 Ibuprofen Hives 02/02/2019 Empagliflozin Other (Please comment) 09/04/2024 Gave him heart palpations and made him feel like he was having a heart attack Penicillins Anaphylaxis High 02/02/2019 documented as of this encounter (statuses as of 09/30/2024) Medications levothyroxine (LEVOXYL) 100 MCG Tablet Take 1 Tablet by mouth daily first thing in the morning. Active Modafinil 100 MG Oral TabletIndicatio ns:patient does not recall dose 2 times a day. Active Naproxen 500 MG Oral Tablet 1 Tablet 2 times a day with morning and evening meals. Active Butalbital-APAP -Caffeine 50-325-40 MG Oral Tablet (Fioricet) Take 1 Tablet by mouth. 09/05/2020 Active glipiZIDE 10 MG Oral Tablet (Glucotrol) Take by mouth. 08/07/2020 Active Lisinopril-hydr oCHLOROthiazide 20-12.5 MG Oral Tablet Take 1 Tablet by mouth. Active Magnesium 200 MG Oral Tablet take 1 daily by mouth Active metFORMIN HCl 1000 MG Oral Tablet (Glucophage) Take 1 Tablet by mouth. Active Nortriptyline HCl 25 MG Oral Capsule (Pamelor) Take 2 Capsules by mouth. Active Rosuvastatin Calcium 5 MG Oral Tablet Take by mouth. Active Ozempic (0.25 or 0.5 MG/DOSE) 2 MG/1.5ML Solution Pen-injector (Semaglutide(0. 25 or 0.5MG/DOS)) Inject under the skin. 07/06/2020 Active Vitamin D3 25 MCG (1000 UT) Oral Tablet (Vitamin D3) 06/16/2022 Active Pregabalin 25 MG Oral Capsule (Lyrica) Take 1 Capsule by mouth every 8 hours. Active Nitrofurantoin Monohyd Macro 100 MG Oral Capsule (Macrobid) Take 1 Capsule by mouth in the morning and 1 Capsule before bedtime. Do all this for 10 days. With food until gone. 20 Capsule 09/30/2024 10/10/20 24 Active documented as of this encounter (statuses as of 09/30/2024) Active Problems Problem Noted Date Diagnosed Date Type 2 diabetes mellitus 09/21/2020 Essential hypertension 08/05/2018 Hyperlipidemia 08/05/2018 Hypothyroidism 08/05/2018 documented as of this encounter (statuses as of 09/30/2024) Immunizations Name Administration Dates Next Due TDAP [...] on file documented as of this encounter Miscellaneous Notes * Telephone Encounter - Felecia Mcelroy OSA - 09/30/2024 9:47 AM EST Pt has a 3 day URGENT order for Urology for a Bladder stone [N21.0] Acute cystitis without hematuria [N30.00] Please call the pt with a 3 day URGENT appt. Thank you Felecia documented in this encounter Plan of Treatment Upcoming Encounters Date Type Department Care Team (Late st Contact Info) Description 10/03/2024 8:00 AM EST Office Visit Urology, [place] [address] [place] [address] Ross Cruz MD [address] [place] [address] Health Maintenance Due Date Last Done Comments [...] Vaccines (1 of 2) 2022 COVID-19 Vaccine (1 - season) 2024 Influenza Vaccine (FLU shot) (#1) [...] Not on filedocumented as of this encounter Care Teams Software Support Representative Relationship Specialty Start Date End Date Rob Mcdaniel PA-C [address] [facility] [place] [address] PCP - General Physician Account Executive [employer] 09/21/22 documented as of this encounter
--- OUTSIDE RECORDS SUMMARY | 2024-10-18 11:22 | External Medical Summary | Summary of Care ---
Author Name Unknown Organization [facility] Address [address] [facility] [place] [address] Phone [phone] Care Team Providers Care Marker Machine Attendant Name Role Phone Rob Mcdaniel PA-C Primary Care Provider Reason for Visit * Reason Comments NCV * Evaluate & Treat - Unlimited Visits (Within 3 days (urgent)) - Authorized Specialty Diagnoses / Procedures Referred By Brandon martin Referred To Contact Urology Diagnoses Bladder stone Acute cystitis without hematuria Kishore Lara PA-C [address] [place] [address] Phone: tel: fax: Referral ID Status Reason Start Date Expiration Date Visits Requested Visits Authorized [id number] Authorized Specialty Services Required 09/30/[phone] Encounter Details Date Type Department Care Team (Late st Contact Info) Description 10/14/2024 9:00 AM EST Office Visit Urology, [place] [address] [place] [address] Retention of urine* Allergies Active Allergy Reactions Criticality Noted Date Comments Aspirin Anaphylaxis High 02/02/2019 Ibuprofen Hives 02/02/2019 Empagliflozin Other (Please comment) 09/04/2024 Gave him heart palpations and made him feel like he was having a heart attack Penicillins Anaphylaxis High 02/02/2019 documented as of this encounter (statuses as of 10/14/2024) Medications levothyroxine (LEVOXYL) 100 MCG Tablet Take [...] as of this encounter (statuses as of 10/14/2024) Active Problems Problem Noted Date Diagnosed Date Type 2 diabetes mellitus 09/21/2020 Essential hypertension 08/05/2018 Hyperlipidemia 08/05/2018 Hypothyroidism 08/05/2018 documented as of this encounter (statuses as of 10/14/2024) Immunizations Name Administration Dates Next Due TDAP [...] Sign Reading Time Taken Comments Blood Pressure 133/81 10/14/2024 9:36 AM EST Pulse 99 10/14/2024 9:36 AM EST Temperature 36.8 C (98.2 F) 10/14/2024 9:36 AM ES T Respiratory Rate - - Oxygen Saturation - - Inhaled Oxygen Concentration - - Weight - - Height - - Body Mass Index - - documented in this encounter Progress Notes * Maria Victoria Connor RN - 10/14/2024 2:51 PM EST Patient of Dr. Darden's here today for urodynamics study to evaluate bladder function. Patient has a history of dysuria, urgency, frequency. Patient bladder scanned prior to procedure for 400ml. 16 fr silicone coude catheter used to drain the bladder. CMG emg bladder voiding pressure test, intraabdominal voiding pressure test w/uroflow completed with report to . CMG= 1st ceuantwzy=554 ml 1st desire to ebog=315 ml Strong tlvienrtu=821 ml Urgent nwlakwcbx=850 ml Full wxtglwgfb=366 ml Bladder yytvdnjj=749 ml Voided volume=0ml UCI=891 ml Patient was able to void 200cc in the BR. Patient taught CIC. He is recommended to do this 3-4 x daily. He was able to demonstrate how to CIC. He drained the additional 350cc. Supplies given. Will send order to [facility] Patient tolerated procedure well. Patient to rtc with Dr. Darden. Reinforced post procedure instructions-increase fluids today to flush bladder(unless on fluid restriction), it is normal to experience slight burning today due to catheter, please call for any signs/symptoms of bladder infection, ie. fever, chills, burning with urination. documented in this encounter Plan of Treatment Upcoming Encounters Date Type Department Care Team (Late st Contact Info) Description 11/28/2024 9:00 AM EST Procedure Only Urology, [place] [address] [place] [address] Cleo Darden MD [address] [place] [address] Scheduled Orders Name Type Priority Associated Diagnoses Orde r Schedule CYSTOMETROGRAM W/VOIDING PRESSURE Procedures Routine Retention of urine Ordered: 10/14/2024 URINE FLOW MEASUREMENT, COMPLEX Procedures Routine Retention of urine Ordered: 10/14/2024 EMG, ANAL SPHINCTER Procedures Routine Retention of urine Ordered: 10/14/2024 VOIDING PRESSURE TEST, INTRA-ABDOMINAL Procedures Routine Retention of urine Ordered: 10/14/2024 Health Maintenance Due Date Last Done Comments [...] Not on filedocumented as of this encounter Procedures Procedure Name Priority Date/Time Associated Diagnosis Comments URINALYSIS, POINT OF CARE JOSELYN 10/14/2024 9:21 AM EST documented in this encounter Results * (ABNORMAL) URINALYSIS, POINT OF CARE (10/14/2024 9:21 AM EST) Color, Urine Yellow Light Yellow, Yellow 10/14/2024 9:24 AM [place] Clarity, Urine Cloudy(A) Clear 10/14/2024 9:24 AM [place] Glucose, Urine 100(A) Negative mg/dL 10/14/2024 9:24 AM [place] Bilirubin, Urine Negative Negative 10/14/2024 9:24 AM [place] Ketone, Urine 15(A) Negative mg/dL 10/14/2024 9:24 AM [place] Specific [place], Urine 1.020 1.003 - 1.030 10/14/2024 9:24 AM [place] Blood, Urine Trace-intact (A) Negative 10/14/2024 9:24 AM [place] pH, Urine 6.0 5.0, 5.5, 6.0, 6.5, 7.0, 7.5 units 10/14/2024 9:24 AM [place] Protein, Urine 30(A) Negative mg/dL 10/14/2024 9:24 AM [place] Urobilinogen, Urine 0.2 0.2, 1.0 mg/dL 10/14/2024 9:24 AM [place] Nitrite, Urine Negative Negative 10/14/2024 9:24 AM [place] Esterase, Urine Moderate(A) Negative 10/14/2024 9:24 AM EST [facility] Urine 10/14/2024 9:21 AM EST 10/14/2024 9:24 AM EST us No Physician Data Unknown LAB POINT OF C ARE TEST DOCKED DEVICE UNSOLICITED RESULTS Final Result [facility] [address] [facility] [place] [id number] documented in this encounter Visit Diagnoses Diagnosis Retention of urine- Primary Retention of urine, unspecified documented in this encounter Care Teams Marker Machine Attendant Relationship Specialty Start Date End Date Rob Mcdaniel PA-C [address] [place] [id number] PCP - General Physician Sales Designer 09/21/22 documented as of this encounter
--- OUTSIDE RECORDS SUMMARY | 2024-10-18 11:22 | External Medical Summary ---
Author Name Unknown Address Unknown Organization : Laboratory Report Ordering Provider Test Date Status NO,UNKNOWN 10/14/2024 09:21:00 Final Observation Date Value Abnormality Reference (Units ) Status Color of Urine by Auto 10/14/2024 09:21:00 Yellow Light Yellow, Yellow Final Clarity, Urine 10/14/2024 09:21:00 Cloudy Abnormal Clear Final Glucose [Mass/volume] in Urine by Automated test strip 10/14/2024 09:21:00 100 Abnormal Negative (mg/dL) Final Bilirubin.total [Presence] in Urine by Automated test strip 10/14/2024 09:21:00 Negative Negative Final Ketones [Mass/volume] in Urine by Automated test strip 10/14/2024 09:21:00 15 Abnormal Negative (mg/dL) Final Specific gravity, Urine 10/14/2024 09:21:00 1.020 1.003-1.030 Final Hemoglobin [Presence] in Urine by Automated test strip 10/14/2024 09:21:00 Trace-intact Abnormal Negative Final pH, Urine 10/14/2024 09:21:00 6.0 5.0, 5.5, 6.0, 6.5, 7.0, 7.5 (units) Final Protein [Mass/volume] in Urine by Automated test strip 10/14/2024 09:21:00 30 Abnormal Negative (mg/dL) Final Urobilinogen, Urine 10/14/2024 09:21:00 0.2 0.2, 1.0 (mg/dL) Final Nitrite [Presence] in Urine by Automated test strip 10/14/2024 09:21:00 Negative Negative Final Leukocyte esterase [Presence] in Urine by Automated test strip 10/14/2024 09:21:00 Moderate Abnormal Negative Final Performing Location
--- OUTSIDE RECORDS SUMMARY | 2024-10-18 11:22 | External Medical Summary | Summary of Care ---
Author Name Unknown Organization [facility] Address [address] [facility] [facility] [place] [address] Phone [phone] Care Team Providers Care Digital Community Manager Name Role Phone Rob Mcdaniel PA-C Primary Care Provider Reason for Visit * Reason Comments Kidney Stone * Evaluate & Treat - Unlimited Visits (Within 3 days (urgent)) - Pending Review Specialty Diagnoses / Procedures Referred By Brandon martin Referred To Contact Urology Diagnoses Bladder stone Acute cystitis without hematuria Kishore Lara PA-C [address] [place] [address] Phone: tel: fax: Referral ID Status Reason Start Date Expiration Date Visits Requested Visits Authorized [id number] Pending Review Specialty Services Required [phone] Encounter Details Date Type Department Care Team (Late st Contact Info) Description 10/03/2024 8:00 AM EST [facility] [address] [place] [address] Ross Cruz MD [address] [place] [address] Urinary retention*; Recurrent UTI; Bladder stone; Acute cystitis without hematuria [N30.00] Allergies Active Allergy Reactions Criticality Noted Date Comments Aspirin Anaphylaxis High 02/02/2019 Ibuprofen Hives 02/02/2019 Empagliflozin Other (Please comment) 09/04/2024 Gave him heart palpations and made him feel like he was having a heart attack Penicillins Anaphylaxis High 02/02/2019 documented as of this encounter (statuses as of 10/03/2024) Medications levothyroxine (LEVOXYL) 100 MCG Tablet Take 1 Tablet by mouth daily first thing in the morning. Active Modafinil 100 MG Oral TabletIndicatio ns:patient does not recall dose 2 times a day. Active Naproxen 500 MG Oral Tablet 1 Tablet 2 times a day with morning and evening meals. Active Butalbital-APAP -Caffeine 50-325-40 MG Oral Tablet (Fioricet) Take 1 Tablet by mouth. 09/05/20 Active glipiZIDE 10 MG Oral Tablet (Glucotrol) Take by mouth. 08/07/20 Active Lisinopril-hydr oCHLOROthiazide 20-12.5 MG Oral Tablet [...] 25 or 0.5MG/DOS)) Inject under the skin. 07/06/20 Active Vitamin D3 25 MCG (1000 UT) Oral Tablet (Vitamin D3) 06/16/20 Active Pregabalin 25 MG Oral Capsule (Lyrica) Take 1 Capsule by mouth every 8 hours. Active Nicotine 7 MG/24HR Transdermal Patch 24 Hour (Nicoderm CQ) Place 1 Patch topically on the skin daily. 09/20/20 24 Active Docusate Sodium 100 MG Oral Capsule (Colace) Take 1 Capsule by mouth in the morning and 1 Capsule before bedtime. 09/20/20 24 Active Nitrofurantoin 50 MG/10ML Oral Suspension Take 100 mg by mouth in the morning and 100 mg before bedtime. 09/20/20 24 Active Nitrofurantoin Monohyd Macro 100 MG Oral Capsule (Macrobid) Take 1 Capsule by mouth in the morning and 1 Capsule before bedtime. Do all this for 10 days. With food until gone. 20 Capsule 09/30/20 24 024 Discontinued documented as of this encounter (statuses as of 10/03/2024) Active Problems Problem Noted Date Diagnosed Date Type 2 diabetes mellitus 09/21/2020 Essential hypertension 08/05/2018 Hyperlipidemia 08/05/2018 Hypothyroidism 08/05/2018 documented as of this encounter (statuses as of 10/03/2024) Immunizations Name Administration Dates Next Due TDAP [...] Sign Reading Time Taken Comments Blood Pressure 144/85 10/03/2024 8:28 AM EST Pulse 62 10/03/2024 8:28 AM EST Temperature 36.7 C (98 F) 10/03/2024 8:28 AM EST Respiratory Rate - - Oxygen Saturation - - Inhaled Oxygen Concentration - - Weight - - Height - - Body Mass Index - - documented in this encounter Progress Notes * Cleo Obrien MD - 10/03/2024 12:06 PM EST Please see cosigned note. * Ross Cruz MD - 10/03/2024 8:04 AM EST [facility] [address] [place] [address] Name: Jaswinder Shannon Date: 10/03/24 Time: 8:04 AM Location: Urology Clinic HPI: Jaswinder Shannon is a 53 year old male with history of HTN, T2DM on Ozempic who presents with urinary tract infection and bladder stone. Beginning in July 2024, he began to experience cloudy and malodorous urine. He then went on todevelop urinary hesitancy and painful urination. He was evaluated by Urgent Care at this time, urine culture was obtained which grew Enterococcus. He was treated with a course of Macrobid. He experienced some relief with the Macrobid but his symptoms returned in full force after he completed his course of antibiotics. He then returned to Urgent Care, had another positive urine culture, and was again treated with Macrobid. In total, he was had 4 positive urine cultures, most recently 09/30/2024,all growing Enterococcus, and all treated with Macrobid. Renal ultrasound was obtained on 09/09/2024 demonstrating 1.8 cm bladder stone and thickened irregular bladder wall consistent with chronic cystitis. I have reviewed the imaging and agree with the interpretation. [facility] at [facility] in mid November but has back surgery scheduled on 10/19/2024 and would like to get his bladder stone taken care of sooner if able. Patient has severe spinal stenosis and lumbar disc disease. He was told that this may be causing his incomplete bladder emptying. He denies fever or chills, gross hematuria. He endorses significant dysuria, urinary urgency and frequency. He also endorses incomplete emptying. PVR today 579 cc. No past medical history on file. No past surgical history on file. Social History Socioeconomic History Marital status: Single Spouse name: Not on file Number of children: Not on file Years of education: Not on file Highest education level: Not on file Occupational History Not on file Tobacco Use Smoking status: Former Smokeless tobacco: Current Types: Chew Vaping Use Vaping status: Never Used Substance and Sexual Activity Alcohol use: Not Currently Drug use: Not Currently Sexual activity: Not on file Other Topics Concern Not on file Social History Narrative Not on file Social Needs Financial Resource Strain: Medium Risk (04/12/2024) Received from [facility] Ambulatory Overall Financial Resource Strain (CARDIA) Difficulty of Paying Living Expenses: Somewhat hard Food Insecurity: No Food Insecurity (04/12/2024) Received from [facility] Ambulatory Hunger Vital Sign Worried About Running Out of Food in the Last Year: Never true Ran Out of Food in the Last Year: Never true Transportation Needs: No Transportation Needs (04/12/2024) Received from [facility] Ambulatory PRAPARE - Transportation Lack of Transportation (Medical): No Lack of Transportation (Non-Medical): No Social Connections: Socially Integrated (04/12/2024) Received from [facility] Ambulatory Social Connection and Isolation Panel [NHANES] Frequency of Communication with Friends and Family: More than three times a week Frequency of Social Gatherings with Friends and Family: Three times a week Attends Mu-Ism Services: 1 to 4 times per year Active Member of Clubs or Organizations: Yes Attends Club or Organization Meetings: More than 4 times per year Marital Status: Living with partner Housing Stability: Not on file No family history on file. Current Outpatient Medications Medication Sig Dispense Refill Nicotine 7 MG/24HR Transdermal Patch 24 Hour (Nicoderm CQ) Place 1 Patch topically on the skin daily. Docusate Sodium 100 MG Oral Capsule (Colace) Take 1 Capsule by mouth in the morning and 1 Capsule before bedtime. Nitrofurantoin 50 MG/10ML Oral Suspension Take 100 mg by mouth in the morning and 100 mg before bedtime. levothyroxine (LEVOXYL) 100 MCG Tablet Take 1 Tablet by mouth daily first thing in the morning. Modafinil 100 MG Oral Tablet 2 times a day. Naproxen 500 MG Oral Tablet 1 Tablet 2 times a day with morning and evening meals. Cvqstrqbjc-GFRC-Mtfnkeer 50-325-40 MG Oral Tablet (Fioricet) Take 1 Tablet by mouth. glipiZIDE 10 MG Oral Tablet (Glucotrol) Take by mouth. (Patient not taking: Reported on 09/18/2024) Lisinopril-hydroCHLOROthiazide 20-12.5 MG Oral Tablet Take 1 [...] 1 Capsule by mouth every 8 hours. No current facility-administered medications for this visit. Review of patient's allergies indicates: Allergen Reactions Aspirin Anaphylaxis Penicillins Anaphylaxis Ibuprofen Hives Jardiance [Empagliflozin] Other (Please comment) Gave him heart palpations and made him feel like he was having a heart attack Review of Symptoms: Constitutional: no fever, no chills, no sweats, no weight loss, no weakness and no fatigue Resp: no cough, no sputum, no wheezing, no shortness of breath and no dyspnea on exertion Cardiac: no chest pain, heart palpitation GI: no pain, no heartburn, no diarrhea, no constipation, no blood/melena, no nausea, no vomiting Musculoskeletal: no significant joint or muscle pain and no swelling : as above Neuro: no memory loss, no weakness, no numbness or tingling and no vertigo Heme: No abnormal bleeding, no bruising, no anticoagulation Endo: no unplanned weight change, no fatigue, no excessive thirst Skin: no rash, no itching, no new/changing skin lesions and no color change ALL other review of systems is negative except for the history of present illness. Physical Exam: VITAL SIGNS: BP 144/85 (BP Site: Right Arm, BP Position: Sitting, BP Cuff Size: Regular) | Pulse 62| Temp 36.7 C (98 F) (Tympanic) Constitutional: Well developed, well nourished, no distress Head: normocephalic, atraumatic Neck: supple, range of motion with normal limits Pulmonary: Nonlabored breathing on room air Abd: soft, non tender, non distended, no guarding, no masses : deferred Musculoskeletal: no deformities, range of motion within normal limits, no tenderness, no edema Neurological: alert, oriented x 3, no gross sensory or motor deficits Skin: warm, dry, no erythema, no new skin lesions or rashes visible Labs: Creatinine Results: Lab Results Component Value Date/Time [facility] 1.1 02/02/2019 04:33 PM Most recent PSA 1.9 on 04/16/2024 Imaging: Renal ultrasound 09/09/2024 FINDINGS: Right kidney: 12.3 cm. No hydronephrosis or nephrolithiasis. No renal mass. Left kidney: 11.6 cm. No hydronephrosis or nephrolithiasis. No renal mass. Urinary bladder: Urinary bladder wall is thickened and irregular. Intraluminal stone measuring 18 mm. Aorta: Abdominal aorta: Proximal 2.9 x 2.7 cm. Mid 2.2 x 2.2 cm. Distal 1.8 x 2.1 cm. IMPRESSION IMPRESSION: 1. Normal appearance of both kidneys. 2. Bladder stone. Irregular thickened urinary bladder wall consistent with chronic cystitis. Consider cystoscopy. Impression: 53 year old male with UTI and bladder stone. Plan: - return for CIC teaching with nursing in the next few days, first available on nursing schedule - we will arrange for cystoscopy and urodynamics to assess bladder function in the next few weeks after his back surgery Patient seen, discussed with Dr. Obrien. Ross Cruz MD 8:04 AM 10/03/2024 I have discussed the patient's management with the resident/fellow physician and agree with the note. Please refer to the documented findings and plan of care. This patient's visit today consisted ofan evaluation. I was present and confirmed the findings of the history and exam. Cleo Obrien MD documented in this encounter Miscellaneous Notes * Addendum Note - Alessandra Fuentes MED ASSIST - 10/03/2024 12:49 PM ESTAddended by: ALESSANDRA FUENTES on: 10/03/2024 12:49 PM Modules accepted: Orders * Addendum Note - Cleo Obrien MD - 10/03/2024 12:07 PM ESTAddended by: CLEO OBRIEN on: 10/03/2024 12:07 PM Modules accepted: Level of Service documented in this encounter Plan of Treatment Upcoming Encounters Date Type Department Care Team (Late st Contact Info) Description 10/14/2024 9:00 AM EST Office Visit [facility], [place] [address] [place] [address] 11/28/2024 9:00 AM EST Procedure Only [facility] [place] [address] [place] [address] Cleo Obrien MD [address] [place] [address] Scheduled Orders Name Type Priority Associated Diagnoses Orde r Schedule CYSTOMETROGRAM, COMPLEX Procedures Routine Urinary retention Ordered: 10/03/2024 Health Maintenance Due Date Last Done Comments [...] Diagnosis Comments URINALYSIS, POINT OF CARE JOSELYN 10/03/2024 8:54 AM EST POST VOID RESIDUAL BLADDER US (NURSE ONLY) Routine 10/03/2024 Urinary retention Recurrent UTI Bladder stone documented in this encounter Results * (ABNORMAL) URINALYSIS, POINT OF CARE (10/03/2024 8:54 AM EST) Color, Urine Yellow Light Yellow, Yellow 10/03/2024 9:47 AM EST [facility] Clarity, Urine Cloudy(A) Clear 10/03/2024 9:47 AM EST [facility] Glucose, Urine 500(A) Negative mg/dL 10/03/2024 9:47 AM EST [facility] Bilirubin, Urine Negative Negative 10/03/2024 9:47 AM EST [facility] Ketone, Urine 15(A) Negative mg/dL 10/03/2024 9:47 AM [place] Specific [place], Urine 1.020 1.003 - 1.030 10/03/2024 9:47 AM [facility] Blood, Urine Trace-intact (A) Negative 10/03/2024 9:47 AM [place] pH, Urine 5.5 5.0, 5.5, 6.0, 6.5, 7.0, 7.5 units 10/03/2024 9:47 AM [place] Protein, Urine 30(A) Negative mg/dL 10/03/2024 9:47 AM [facility] Urobilinogen, Urine 0.2 0.2, 1.0 mg/dL 10/03/2024 9:47 AM [facility] Nitrite, Urine Negative Negative 10/03/2024 9:47 AM [facility] Esterase, Urine Trace(A) Negative 10/03/2024 9:47 AM [facility] Urine 10/03/2024 8:54 AM EST 10/03/2024 9:47 AM EST us Ross Cruz MD LAB POINT OF CARE TE ST DOCKED DEVICE UNSOLICITED RESULTS Final Result [facility] [address] [place] [address] * POST VOID RESIDUAL BLADDER US (NURSE ONLY) (10/03/2024) Post Void Residual (PVR) - Urine 579 mL Ross Cruz MD SURGERY Final Result documented in this encounter Visit Diagnoses Diagnosis Urinary retention- Primary Retention of urine, unspecified Recurrent UTI Urinary tract infection, site not specified Bladder stone Other calculus in bladder Acute cystitis without hematuria [N30.00] Acute cystitis documented in this encounter Care Teams Digital Community Manager Relationship Specialty Start Date End Date Rob Mcdaniel PA-C [address] [address] [place] [id number] PCP - General Physician Solar Sales Representative And Assessor 09/21/22 documented as of this encounter"
--- OUTSIDE RECORDS SUMMARY | 2024-10-18 11:22 | External Medical Summary | Summary of Care ---
Author Name Unknown Organization [facility] Address [address] [facility] [place] [address] Phone [phone] Care Team Providers Care Automotive Worker Foreman Name Role Phone Rob Mcdaniel PA-C Primary Care Provider Reason for Visit * Reason Comments Kidney Stone * Evaluate & Treat - Unlimited Visits (Within 3 days (urgent)) - Pending Review Specialty Diagnoses / Procedures Referred By Brandon martin Referred To Contact Urology Diagnoses Bladder stone Acute cystitis without hematuria Kishore Lara PA-C [address] [place] [address] Phone: tel: fax: Referral ID Status Reason Start Date Expiration Date Visits Requested Visits Authorized [id number] Pending Review Specialty Services Required [phone] Encounter Details Date Type Department Care Team (Late st Contact Info) Description 10/03/2024 8:00 AM EST Office Visit [facility] [address] [place] [address] Ross Cruz MD [address] [place] [address] Urinary retention*; Recurrent UTI; Bladder stone; Acute [...] Cruz MD - 10/03/2024 8:[address] [facility] [address] [place] [address] Name: Jaswinder Shannon Date: 10/03/24 Time: 8:04 [...] [facility] in mid November but has back surgery [...] Resource Strain: Medium Risk (04/12/2024) Received from [facility] Ambulatory Overall Financial Resource Strain (CARDIA) Difficulty of Paying Living Expenses: Somewhat hard Food Insecurity: No Food Insecurity (04/12/2024) Received from [facility] Ambulatory Hunger Vital Sign Worried About Running Out of Food in the Last Year: Never true Ran Out of Food in the Last Year: Never true Transportation Needs: No Transportation Needs (04/12/2024) Received from [facility] Ambulatory PRAPARE - Transportation Lack of Transportation (Medical): No Lack of Transportation (Non-Medical): No Social Connections: Socially Integrated (04/12/2024) Received from [facility] Ambulatory Social Connection and Isolation Panel [NHANES] Frequency of Communication with Friends and Family: More than three times a week Frequency of Social Gatherings with Friends and Family: Three times a week Attends Christianity Services: 1 to 4 times per year [...] a day with morning and evening meals. [id number] 50-325-40 MG Oral Tablet (Fioricet) Take 1 [...] 10/14/2024 9:00 AM EST Office Visit Urology, [place] [address] [place] [address] 11/28/2024 9:00 AM EST Procedure Only Urology, [place] [address] [place] [address] Cleo Obrien MD [address] [place] [address] Scheduled Orders Name Type Priority Associated Diagnoses [...] Light Yellow, Yellow 10/03/2024 9:47 AM EST [facility] Clarity, Urine Cloudy(A) Clear 10/03/2024 9:47 AM EST [facility] Glucose, Urine 500(A) Negative mg/dL 10/03/2024 9:47 AM EST [facility] Bilirubin, Urine Negative Negative 10/03/2024 9:47 AM EST [facility] Ketone, Urine 15(A) Negative mg/dL 10/03/2024 9:47 AM [facility] Specific [place], Urine 1.020 1.003 - 1.030 10/03/2024 9:47 AM [facility] Blood, Urine Trace-intact (A) Negative 10/03/2024 9:47 AM [facility] pH, Urine 5.5 5.0, 5.5, 6.0, 6.5, 7.0, 7.5 units 10/03/2024 9:47 AM [facility] Protein, Urine 30(A) Negative mg/dL 10/03/2024 9:47 AM [facility] Urobilinogen, Urine 0.2 0.2, 1.0 mg/dL 10/03/2024 9:47 AM [facility] Nitrite, Urine Negative Negative 10/03/2024 9:47 AM [facility] Esterase, Urine Trace(A) Negative 10/03/2024 9:47 AM [facility] Urine 10/03/2024 8:54 AM EST 10/03/2024 9:47 AM EST us Ross Cruz MD LAB POINT OF CARE TE ST DOCKED DEVICE UNSOLICITED RESULTS Final Result [facility] [address] [place] [address] * POST VOID RESIDUAL BLADDER US (NURSE [...] cystitis documented in this encounter Care Teams Automotive Worker Foreman Relationship Specialty Start Date End Date Rob Mcdaniel PA-C [address] [place] [address] [place] [address] PCP - General Physician Acquisition Consultant 09/21/22 documented as of this encounter"
--- OUTSIDE RECORDS SUMMARY | 2024-10-18 11:22 | External Medical Summary | Summary of Care ---
Author Name Unknown Organization [facility] Address [address] [place] [address] Phone [phone] Care Team Providers Care Cushion Maker Name Role Phone Rob Mcdaniel PA-C Primary Care Provider Reason for Visit * Reason Onset Date Comments Appointment 09/30/2024 TRIAGE 09/30/2024 Encounter Details Date Type Department Care Team (Late st Contact Info) Description 09/30/2024 Telephone Urology, [place] [address] [place] [address] Services, Scheduling [address] [place] [address] Appointment; TRIAGE Allergies Active Allergy Reactions Criticality [...] food until gone. 20 Capsule 09/30/2024 10/10/20 Active documented as of this encounter (statuses [...] encounter Miscellaneous Notes * Telephone Encounter - Keely Mijares LPN - 09/30/2024 10:57 AM EST Scheduled with [facility] 10/03/24 * Telephone Encounter - Felecia Mcelroy OSA [...] 10/03/2024 8:00 AM EST Office Visit Urology, [place] [address] [place] [id number] Ross Cruz MD [address] [place] [address] Health Maintenance Due Date Last Done Comments [...] filedocumented as of this encounter Care Teams Cushion Maker Relationship Specialty Start Date End Date Rob Mcdaniel PA-C 1 [facility] [place] [address] PCP - General Physician Cloth Bleaching Range Back Tender 09/21/22 documented as of this encounter
--- OUTSIDE RECORDS SUMMARY | 2024-10-18 11:22 | External Medical Summary | Summary of Care ---
Author Name Unknown Organization [facility] Address [address] [facility] [place] [address] Phone [phone] Care Team Providers Care Driver'S License Examiner Name Role Phone Rob Mcdaniel PA-C Primary Care Provider Reason for Visit * Reason Comments Kidney Stone * Evaluate & Treat - Unlimited Visits (Within 3 days (urgent)) - Pending Review Specialty Diagnoses / Procedures Referred By Brandon martin Referred To Contact Urology Diagnoses Bladder stone Acute cystitis without hematuria Kishore Lara PA-C [address] [place] [address] Phone: tel: fax: Referral ID Status Reason Start Date Expiration Date Visits Requested Visits Authorized [id number] Pending Review Specialty Services Required [phone] Encounter Details Date Type Department Care Team (Late st Contact Info) Description 10/03/2024 8:00 AM EST Office Visit [facility] [address] [place] [address] Ross Cruz MD [address] [place] [address] Acute cystitis without hematuria* Allergies Active Allergy Reactions Criticality Noted Date [...] morning and 100 mg before bedtime. 09/20/20 Active Nitrofurantoin Monohyd Macro 100 MG Oral [...] Index - - documented in this encounter Plan of Treatment Upcoming Encounters Date Type Department Care Team (Late st Contact Info) Description 10/14/2024 9:00 AM EST Office Visit Urology, [place] [address] [place] [address] 11/28/2024 9:00 AM EST Procedure Only Urology, [place] [address] [place] [address] Cleo Darden MD [address] [place] [address] Scheduled Orders Name Type Priority Associated Diagnoses Orde r Schedule CYSTOMETROGRAM, COMPLEX Procedures Routine Acute cystitis without hematuria Ordered: 10/03/2024 Health Maintenance Due Date Last [...] Associated Diagnosis Comments URINALYSIS, POINT OF CARE [facility] 10/03/2024 8:54 AM EST documented in this encounter Results * (ABNORMAL) URINALYSIS, POINT OF CARE (10/03/2024 8:54 AM EST) Color, Urine Yellow Light Yellow, Yellow 10/03/2024 9:47 AM EST [facility] Clarity, Urine Cloudy(A) Clear 10/03/2024 9:47 AM EST [facility] Glucose, Urine 500(A) Negative mg/dL 10/03/2024 9:47 AM EST [facility] Bilirubin, Urine Negative Negative 10/03/2024 9:47 AM EST [facility] Ketone, Urine 15(A) Negative mg/dL 10/03/2024 9:47 AM EST [facility] Specific [place], Urine 1.020 1.003 - 1.030 10/03/2024 9:47 AM EST [facility] Blood, Urine Trace-intact (A) Negative 10/03/2024 9:47 AM EST [facility] pH, Urine 5.5 5.0, 5.5, 6.0, 6.5, 7.0, 7.5 units 10/03/2024 9:47 AM EST [facility] Protein, Urine 30(A) Negative mg/dL 10/03/2024 9:47 AM EST [facility] Urobilinogen, Urine 0.2 0.2, 1.0 mg/dL 10/03/2024 9:47 AM EST [facility] Nitrite, Urine Negative Negative 10/03/2024 9:47 AM EST [facility] Esterase, Urine Trace(A) Negative 10/03/2024 9:47 AM EST [facility] Urine 10/03/2024 8:54 AM EST 10/03/2024 9:47 AM EST Ross Cruz MD LAB POINT OF CARE TE ST DOCKED DEVICE UNSOLICITED RESULTS Final Result [facility] [address] [facility] [address] documented in this encounter Visit Diagnoses Diagnosis Acute cystitis without hematuria- Primary Acute cystitis documented in this encounter Care Teams Driver'S License Examiner Relationship Specialty Start Date End Date Rob Mcdaniel PA-C [address] [place] [place] [address] [place] [id number] PCP - General Physician Mix Chemist 09/21/22 documented as of this encounter
--- OUTSIDE RECORDS SUMMARY | 2024-10-18 11:22 | External Medical Summary | Summary of Care ---
Author Name Unknown Organization [facility] Address [address] [facility] [place] [address] Phone [phone] Care Team Providers Care Key Entry Operator Name Role Phone Rob Mcdaniel PA-C Primary Care Provider Reason for Visit * Reason Comments Kidney Stone * Evaluate & Treat - Unlimited Visits (Within 3 days (urgent)) - Pending Review Specialty Diagnoses / Procedures Referred By Brandon martin Referred To Contact Urology Diagnoses Bladder stone Acute cystitis without hematuria Kishore Lara PA-C [address] [place] [address] Phone: tel: fax: Referral ID Status Reason Start Date Expiration Date Visits Requested Visits Authorized [id number] Pending Review Specialty Services Required [phone] Encounter Details Date Type Department Care Team (Late st Contact Info) Description 10/03/2024 8:00 AM EST Office Visit [facility] [address] [place] [address] Ross Cruz MD [address] [place] [address] Urinary retention*; Recurrent UTI; Bladder stone Allergies Active Allergy Reactions Criticality Noted Date [...] 10/03/2024 8:04 AM EST [facility] [address] [place] [address] Name: Jaswinder Shannon Date: 10/03/24 Time: 8:04 [...] [facility] in mid November but has back [...] Resource Strain: Medium Risk (04/12/2024) Received from [facility] Ambulatory Overall Financial Resource Strain (CARDIA) Difficulty of Paying Living Expenses: Somewhat hard Food Insecurity: No Food Insecurity (04/12/2024) Received from [facility] Ambulatory Hunger Vital Sign Worried About Running Out of Food in the Last Year: Never true Ran Out of Food in the Last Year: Never true Transportation Needs: No Transportation Needs (04/12/2024) Received from [facility] Ambulatory PRAPARE - Transportation Lack of Transportation (Medical): No Lack of Transportation (Non-Medical): No Social Connections: Socially Integrated (04/12/2024) Received from [facility] Ambulatory Social Connection and Isolation Panel [NHANES] Frequency of Communication with Friends and Family: More than three times a week Frequency of Social Gatherings with Friends and Family: Three times a week Attends Islam Services: 1 to 4 times per year [...] a day with morning and evening meals. [id number] 50-325-40 MG Oral Tablet (Fioricet) Take 1 [...] encounter Miscellaneous Notes * Addendum Note - Cleo Obrien MD - 10/03/2024 12:07 PM ESTAddended by: CLEO OBRIEN on: 10/03/2024 12:07 PM Modules accepted: Level of Service documented in this encounter Plan of Treatment Upcoming Encounters Date Type Department Care Team (Late st Contact Info) Description 10/14/2024 9:00 AM EST Office Visit Urology, [place] [address] [place] [facility] [place] [address] 11/28/2024 9:00 AM EST Procedure Only Urology, [place] [address] [facility] [place] [address] Cleo Obrien MD [address] [facility] [place] [address] Scheduled Orders Name Type Priority Associated Diagnoses [...] (1 of 2) 2022 COVID-19 Vaccine ( - season) 2024 Influenza Vaccine (FLU shot) [...] OF CARE JOSELYN 10/03/2024 8:54 AM EST documented in this encounter Results * (ABNORMAL) URINALYSIS, POINT OF CARE (10/03/2024 8:54 AM EST) Color, Urine Yellow Light Yellow, Yellow 10/03/2024 9:47 AM [facility] Clarity, Urine Cloudy(A) Clear 10/03/2024 9:47 AM EST [facility] Glucose, Urine 500(A) Negative mg/dL 10/03/2024 9:47 AM EST [facility] Bilirubin, Urine Negative Negative 10/03/2024 9:47 AM EST [facility] Ketone, Urine 15(A) Negative mg/dL 10/03/2024 9:47 AM EST [facility] Specific [employer], Urine 1.020 1.003 - 1.030 10/03/2024 9:47 AM [facility] Blood, Urine Trace-intact (A) Negative 10/03/2024 9:47 AM [facility] pH, Urine 5.5 5.0, 5.5, 6.0, 6.5, 7.0, 7.5 units 10/03/2024 9:47 AM EST [facility] Protein, Urine 30(A) Negative mg/dL 10/03/2024 9:47 AM [facility] Urobilinogen, Urine 0.2 0.2, 1.0 mg/dL 10/03/2024 9:47 AM [facility] Nitrite, Urine Negative Negative 10/03/2024 9:47 AM [facility] Esterase, Urine Trace(A) Negative 10/03/2024 9:47 AM [facility] Urine 10/03/2024 8:54 AM EST 10/03/2024 9:47 AM EST Ross Cruz MD LAB POINT OF CARE TE ST DOCKED DEVICE UNSOLICITED RESULTS Final Result [facility] [address] [facility] [address] documented in this encounter Visit Diagnoses Diagnosis Urinary retention- Primary Retention of urine, unspecified Recurrent UTI Urinary tract infection, site not specified Bladder stone Other calculus in bladder documented in this encounter Care Teams Key Entry Operator Relationship Specialty Start Date End Date Rob Mcdaniel PA-C [address] [place] [address] PCP - General Physician Corporate Relations Director 09/21/22 documented as of this encounter"
--- OUTSIDE RECORDS SUMMARY | 2024-10-18 11:22 | External Medical Summary ---
Author Name Unknown Address Unknown Organization K01:[facility] - [address] [place] [id number] Laboratory Report Ordering Provider Test Date Status JOEL DAVID 10/12/2024 09:45:34 Final Observation Date Value Abnormality Reference (Units) Status Bacteria identified in Specimen by Culture 10/12/2024 09:45:34 No significant growth Final Test: Culture, Urine, Quanti tative
Specimen Source: Urine, Clean Catch
Specimen Type: Urine
Specimen Date: 10/12/2024944
Result Date: 10/13/2024 1006
Result Status: Final result
Resulting Lab: [facility]
[address]
[place] [address]

CULTURE

No significant growth

null Performing Location [facility] [place] [address] [facility] [address]
--- OUTSIDE RECORDS SUMMARY | 2024-10-18 11:22 | External Medical Summary | Summary of Care ---
Author Name Unknown Organization [facility] Address [address] [facility] [place] [address] Phone [phone] Care Team Providers Care Hand Pattern Marker Name Role Phone Rob Mcdaniel PA-C Primary Care Provider Reason for Visit * Reason Comments Kidney Stone * Evaluate & Treat - Unlimited Visits (Within 3 days (urgent)) - Pending Review Specialty Diagnoses / Procedures Referred By Brandon martin Referred To Contact Urology Diagnoses Bladder stone Acute cystitis without hematuria Kishore Lara PA-C [address] [place] [address] Phone: tel: fax: Referral ID Status Reason Start Date Expiration Date Visits Requested Visits Authorized [id number] Pending Review Specialty Services Required [phone] Encounter Details Date Type Department Care Team (Late st Contact Info) Description 10/03/2024 8:00 AM EST Office Visit [facility] [address] [place] [address] Ross Cruz MD [address] [place] [address] Acute cystitis without hematuria* Allergies Active Allergy [...] 10/14/2024 9:00 AM EST Office Visit Urology, [place] [address] [place] [address] 11/28/2024 9:00 AM EST Procedure Only Urology, [place] [address] [place] [address] Cleo Darden MD [address] [place] [address] Scheduled Orders Name Type Priority Associated Diagnoses [...] as of this encounter Visit Diagnoses Diagnosis Acute cystitis without hematuria- Primary Acute cystitis documented in this encounter Care Teams Hand Pattern Marker Relationship Specialty Start Date End Date Rob Mcdaniel PA-C 1 [facility] [place] [place] [address] [place] [address] PCP - General Physician Java Websphere Developer 09/21/22 documented as of this encounter
--- OUTSIDE RECORDS SUMMARY | 2024-10-18 11:22 | External Medical Summary | Summary of Care ---
Author Name Unknown Organization [facility] Address [address] [facility] [place] [address] Phone [phone] Care Team Providers Care Algebraist Name Role Phone Rob Mcdaniel PA-C Primary Care Provider Reason for Visit * Reason Comments Kidney Stone * Evaluate & Treat - Unlimited Visits (Within 3 days (urgent)) - Pending Review Specialty Diagnoses / Procedures Referred By Brandon martin Referred To Contact Urology Diagnoses Bladder stone Acute cystitis without hematuria Kishore Lara PA-C [address] [place] [address] Phone: tel: fax: Referral ID Status Reason Start Date Expiration Date Visits Requested Visits Authorized [id number] Pending Review Specialty Services Required [phone] Encounter Details Date Type Department Care Team (Late st Contact Info) Description 10/03/2024 8:00 AM EST Office Visit [facility] [address] [place] [address] Ross Cruz MD [address] [place] [address] Urinary retention*; Recurrent UTI; Bladder stone; Acute [...] Cruz MD - 10/03/2024 8:04 AM EST [facility] [address] [place] [address] Name: Jaswinder Shannon Date: 10/03/24 Time: 8:04 [...] [facility] in mid November but has back [...] Resource Strain: Medium Risk (04/12/2024) Received from [facility] Ambulatory Overall Financial Resource Strain (CARDIA) Difficulty of Paying Living Expenses: Somewhat hard Food Insecurity: No Food Insecurity (04/12/2024) Received from [facility] Ambulatory Hunger Vital Sign Worried About Running Out of Food in the Last Year: Never true Ran Out of Food in the Last Year: Never true Transportation Needs: No Transportation Needs (04/12/2024) Received from [facility] Ambulatory PRAPARE - Transportation Lack of Transportation (Medical): No Lack of Transportation (Non-Medical): No Social Connections: Socially Integrated (04/12/2024) Received from [facility] Ambulatory Social Connection and Isolation Panel [NHANES] Frequency of Communication with Friends and Family: More than three times a week Frequency of Social Gatherings with Friends and Family: Three times a week Attends Adventism Services: 1 to 4 times per year [...] a day with morning and evening meals. [id number] 50-325-40 MG Oral Tablet (Fioricet) Take 1 [...] 10/14/2024 9:00 AM EST Office Visit Urology, [place] [address] [place] [address] 11/28/2024 9:00 AM EST Procedure Only Urology, [place] [address] [place] [address] Cleo Obrien MD [address] [place] [address] Scheduled Orders Name Type Priority Associated Diagnoses [...] Light Yellow, Yellow 10/03/2024 9:47 AM EST [facility] Clarity, Urine Cloudy(A) Clear 10/03/2024 9:47 AM EST [facility] Glucose, Urine 500(A) Negative mg/dL 10/03/2024 9:47 AM EST [facility] Bilirubin, Urine Negative Negative 10/03/2024 9:47 AM EST [facility] Ketone, Urine 15(A) Negative mg/dL 10/03/2024 9:47 AM [facility] Specific [place], Urine 1.020 1.003 - 1.030 10/03/2024 9:47 AM [facility] Blood, Urine Trace-intact (A) Negative 10/03/2024 9:47 AM [facility] pH, Urine 5.5 5.0, 5.5, 6.0, 6.5, 7.0, 7.5 units 10/03/2024 9:47 AM [facility] Protein, Urine 30(A) Negative mg/dL 10/03/2024 9:47 AM [facility] Urobilinogen, Urine 0.2 0.2, 1.0 mg/dL 10/03/2024 9:47 AM [facility] Nitrite, Urine Negative Negative 10/03/2024 9:47 AM [facility] Esterase, Urine Trace(A) Negative 10/03/2024 9:47 AM [facility] Urine 10/03/2024 8:54 AM EST 10/03/2024 9:47 AM EST us Ross Cruz MD LAB POINT OF CARE TE ST DOCKED DEVICE UNSOLICITED RESULTS Final Result [facility] [address] [place] [address] * POST VOID RESIDUAL BLADDER US (NURSE [...] cystitis documented in this encounter Care Teams Algebraist Relationship Specialty Start Date End Date Rob Mcdaniel PA-C [address] [place] [address] [place] [id number] PCP - General Physician Unit Support Representative 09/21/22 documented as of this encounter"
--- OUTSIDE RECORDS SUMMARY | 2024-10-18 11:23 | External Medical Summary | Summary of Care ---
Author Name Unknown Organization [facility] Address [address] [place] [address] Phone [phone] Care Team Providers Care Segmental Paver Installer Name Role Phone Rob Mcdaniel PA-C Primary Care Provider Reason for Referral * Evaluate & Treat - Unlimited Visits (Within 3 days (urgent)) - Pending Review Specialty Diagnoses / Procedures Referred By Brandon martin Referred To Contact Urology Diagnoses Bladder stone Acute cystitis without hematuria Kishore Lara PA-C [address] [place] [address] Phone: tel: fax: Referral ID Status Reason Start Date Expiration Date Visits Requested Visits Authorized [id number] Pending Review Specialty Services Required [phone] Question Answer Referral Priority Within 3 days (urgent) Where should this appointment be scheduled? [facility] What is the patient being referred for? Kidney Stone/Calculi Has Imaging been done? Yes Reason for Visit * Reason Comments Urinary Tract Infection Symptoms Has a s tone that is too big to pass. Encounter Details Date Type Department Care Team (Late st Contact Info) Description 09/30/2024 9:20 AM EST [facility] [place] [address] [address] Kishore Lara PA-C [address] [place], [place] [id number] Bladder stone*; Acute cystitis without hematuria Allergies Active Allergy Reactions Criticality Noted Date [...] Sign Reading Time Taken Comments Blood Pressure 146/81 09/30/2024 9:17 AM EST Pulse 93 09/30/2024 9:17 AM EST Temperature 36.7 C (98.1 F) 09/30/2024 9:17 AM ES T Respiratory Rate 18 09/30/2024 9:17 AM EST Oxygen Saturation 97% 09/30/2024 9:17 AM EST Inhaled Oxygen Concentration - - Weight 108.4 kg (239 lb) 09/30/2024 9:17 AM EST Height - - Body Mass Index 32.41 03/10/2024 10:48 AM EDT documented in this encounter Patient Instructions * Patient Instructions* Kishore Lara PA-C - 09/30/2024 10:26 AM EST CONTINUE TO INCREASE FLUIDS; TYLENOL DIRECTED; CALL FOR APPOINTMENT FOR REFERRAL OR [facility]CT [facility] AND LET [facility] KNOW ANOTHER REFERRAL IS PLACED IF FEVERS, INCREASED PAIN, BLOOD, OR INABILITY TO VOID - GO TO AN ER - [facility] WOULD BE BEST OPTION OR [facility]. documented in this encounter Progress Notes * Kishore Lara PA-C - 09/30/2024 9:21 AM EST Subjective: Jaswinder Shannon is a 53 year old male. Chief Complaint Patient presents with Urinary Tract Infection Symptoms Has a stone that is too big to pass. Nursing Notes: Hans Martavanessa Evans, [facility] 09/30/24 0917 Signed Nursing Notes: CC: Chief Complaint Patient presents with Urinary Tract Infection Symptoms Has a stone that is too big to pass. Brief Hx: Urine is cloudy, and foul smelling. Finished antibiotics but the symptoms are coming back. Some pain in the abdomen Duration/Onset: 3-4 days OTC meds: cranberry pills Accompanied by: self HPI: HAS 18mm STONE IN BLADDER; HAS BEEN ON MACROBID FOR THE INFECTION/PAIN AND HE GETS BETTER, BUTWITHIN DAYS OF BEING OFF THE MACROBID IT COMES RIGHT BACK TO THE PAIN; NO FEVERS; NO N/V; NO BLOOD IN URINE, JUST THE CLOUDY AND SMELLY URINE; HAS PASSED STONES IN THE PAST. GOT A REFERRAL THROUGH [place] TO SEE A [facility] UROLOGIST IN MID NOVEMBER, BUT HAS SCHEDULED BACK SURGERY SOON AFTER THAT SCHEDULED APPOINTMENT; WILLING TO TAKE A [facility] REFERRAL TO UROLOGY IF IT CAN HAPPEN FASTER AND BE APPROVED BY [facility]. All other systems reviewed and are negative. Patient Active Problem List Diagnosis Essential hypertension Hyperlipidemia Hypothyroidism Type 2 diabetes mellitus (HCC) Current Outpatient Medications Medication Sig Dispense Refill Nitrofurantoin Monohyd Macro 100 MG Oral Capsule (Macrobid) Take 1 Capsule by mouth in the morning and 1 Capsule before bedtime. Do all this for 10 days. With food until gone. 20 Capsule 0 levothyroxine (LEVOXYL) 100 MCG Tablet Take 1 Tablet by mouth daily first thing in the morning. Modafinil 100 MG Oral Tablet 2 times a day. Naproxen 500 MG Oral Tablet 1 Tablet 2 times a day with morning and evening meals. Hoovghsbpl-AVBL-Kncozsib 50-325-40 MG Oral Tablet (Fioricet) Take 1 [...] was having a heart attack OBJECTIVE: BP 146/81 | Pulse 93 | Temp 36.7 C (98.1 F) | Resp 18 | Wt 108.4 kg (239 lb) | SpO2 97% | BMI 32.41 kg/m | BSA 2.35 m Review of Systems: See HPI. All [...] gait normal, reflexes normal and symmetric ASSESSMENT/PLAN: Bladder stone (Primary) - ADULT/PEDS UROLOGY REFERRAL OP Acute cystitis without hematuria - ADULT/PEDS UROLOGY REFERRAL OP - CULTURE, URINE, QUANTITATIVE; Future; Expected date: 09/30/2024 - CULTURE, URINE, QUANTITATIVE Other orders - Nitrofurantoin Monohyd Macro 100 MG Oral Capsule (Macrobid); Take 1 Capsule by mouth in the morning and 1 Capsule before bedtime. Do all this for 10 days. With food until gone. Kishore Lara PA-C 09/30/24 documented in this encounter Nursing Notes * Marta Maxwell CCMA - 09/30/2024 9:12 AM EST Nursing Notes: CC: Chief Complaint Patient presents with Urinary Tract Infection Symptoms Has a stone that is too big to pass. Brief Hx: Urine is cloudy, and foul smelling. Finished antibiotics but the symptoms are coming back. Some pain in the abdomen Duration/Onset: 3-4 days OTC meds: cranberry pills Accompanied by: self documented in this encounter Plan of Treatment Upcoming Encounters Date Type Department Care Team (Late st Contact Info) Description 10/03/2024 8:00 AM EST Office Visit Urology, [place] [address] [place] [address] Ross Cruz MD [address], [place] [phone] Pending Results Name Type Priority Associated Diagnoses Date /Time CULTURE, URINE, QUANTITATIVE Lab Routine Acute cystitis without hematuria 09/30/2024 9:39 AM EST Scheduled Orders Name Type Priority Associated Diagnoses Orde r Schedule CULTURE, URINE, QUANTITATIVE Lab Routine Acute cystitis without hematuria Expected: 09/30/2024, Expires: 09/30/2025 Scheduled Referrals Name Type Priority Associated Diagnoses Orde r Schedule ADULT/PEDS UROLOGY REFERRAL OP Referral Within 3 days (urgent) Bladder stone Acute cystitis without hematuria Ordered: 09/30/2024 Health Maintenance Due Date Last Done Comments [...] of 2) 2022 COVID-19 Vaccine (1 - 2023- season) 2024 Influenza Vaccine (FLU shot) (#1) [...] as of this encounter Visit Diagnoses Diagnosis Bladder stone- Primary Other calculus in bladder Acute cystitis without hematuria Acute cystitis documented in this encounter Care Teams Segmental Paver Installer Relationship Specialty Start Date End Date Rob Mcdaniel PA-C 1 [facility] [address] [id number] PCP - General Physician Mechanical Design Engineer 09/21/22 documented as of this encounter"
--- OUTSIDE RECORDS SUMMARY | 2024-10-18 11:23 | External Medical Summary | Summary of Care ---
Author Name Unknown Organization [facility] Address [address] [facility] [place] [address] Phone [phone] Care Team Providers Care Waste Minimization Technician Name Role Phone Rob Mcdaniel PA-C Primary Care Provider Reason for Visit * Reason Onset Date Comments Test Results 08/27/2024 Encounter Details Date Type Department Care Team (Late st Contact Info) Description 08/27/2024 Telephone [facility] [place] [address] [place] [address] Lexie Sandoval CRNP [address] [place] [address] Test Results Allergies Active Allergy Reactions Criticality Noted Date Comments Aspirin Anaphylaxis High 02/02/2019 Ibuprofen Hives 02/02/2019 Penicillins Anaphylaxis High 02/02/2019 documented as of this encounter (statuses as of 08/27/2024) Medications Medication Sig Dispensed Refills Start Date End Date Status levothyroxine (LEVOXYL) 100 MCG Tablet Take 1 Tablet by mouth daily first thing in the morning. Active Modafinil 100 MG Oral TabletIndications:p atient does not recall dose 2 times a day. Active Naproxen 500 MG Oral Tablet 1 Tablet 2 times a day with morning and evening meals. Active Uxfoavnlgb-ETQO-Wsv feine 50-325-40 MG Oral Tablet (Fioricet) Take 1 Tablet by mouth. 09/05/2020 Active glipiZIDE 10 MG Oral Tablet (Glucotrol) Take by mouth. 08/07/2020 Active Lisinopril-hydroCHL OROthiazide 20-12.5 MG Oral Tablet Take 1 Tablet [...] (Semaglutide(0.25 or 0.5MG/DOS)) Inject under the skin. 07/06/2020 Active Vitamin D3 25 MCG (1000 UT) Oral Tablet (Vitamin D3) 06/16/2022 Activ e Pregabalin 25 MG Oral Capsule (Lyrica) Take 1 Capsule by mouth every 8 hours. Active Nitrofurantoin Monohyd Macro 100 MG Oral Capsule (Macrobid)Indicatio ns:UTI symptoms Take 1 Capsule by mouth in the morning and 1 Capsule before bedtime. Do all this for 7 days. With food until gone. 14 Capsule 08/25/2024 09/01/2024 Active documented as of this encounter (statuses as of 08/27/2024) Active Problems Problem Noted Date Diagnosed Date Type 2 diabetes mellitus 09/21/2020 Essential hypertension 08/05/2018 Hyperlipidemia 08/05/2018 Hypothyroidism 08/05/2018 documented as of this encounter (statuses as of 08/27/2024) Immunizations Name Administration Dates Next Due TDAP (age 10 and older)(Boostrix) 02/18/2021 documented as of this encounter Social History Tobacco Use Types Packs/Day Years Used Date Smoking Tobacco: Former Smokeless Tobacco: Current Chew Alcohol Use Standard Drinks/Week Comments Not Currently 0 (1 standard drink = 0.6 oz pur e alcohol) Utilities Answer Date Recorded Do you have trouble paying y our heating, water, or electric bill? (Adult - for ages 18 years and over) Not on file 04/19/2024 Is your family able to pay t he heat, water, or electric bill? (Household - for ages 0-17 years) Not on file 04/19/2024 Does your family have access to good internet? (Household - for ages 0-17 years) Not on file 04/19/2024 Social Connections Answer Date Recorded How often do you feel lonely or isolated from those around you? (Adult - for ages 18 years and over) Not on file 04/19/2024 Sex and Gender Information Value Date Recorded Sex Assigned at Not on file Gender Identity Not on file Sexual Orientation Not on file Job Start Date Occupation Industry Not on file Not on file Not on file documented as of this encounter Miscellaneous Notes * Telephone Encounter - Lexie Sandoval CRNP - 08/27/2024 5:47 PM EDT Called to inform patient of urine culture results- enterococcus Reports feeling better on the macrobid Continue- do not miss any doses Patient stated understanding and had no other issues at this time documented in this encounter Plan of Treatment Health Maintenance Due Date Last Done Comments [...] filedocumented as of this encounter Care Teams Waste Minimization Technician Relationship Specialty Start Date End Date Rob Mcdaniel PA-C 1 [facility] [address] [facility] [place] [address] PCP - General Physician Silviculture Professor 09/21/22 documented as of this encounter
--- OUTSIDE RECORDS SUMMARY | 2024-10-18 11:23 | External Medical Summary | Summary of Care ---
Author Name Unknown Organization [facility] Address [address] [place] [address] Phone [phone] Care Team Providers Care General Magistrate Name Role Phone Rob Mcdaniel PA-C Primary Care Provider Reason for Visit * Reason Onset Date Comments Imaging Records Request 09/28/2024 Patient Access Records Request 09/28/2024 Encounter Details Date Type Department Care Team (Late st Contact Info) Description 09/28/2024 Telephone Radiology Film File [address] [place] [address] Support, Imaging Radiology [address] [place] [address] Imaging Records Request; Patient Access Re... Allergies Active Allergy Reactions Criticality Noted Date Comments Aspirin Anaphylaxis High 02/02/2019 Ibuprofen Hives 02/02/2019 Empagliflozin Other (Please comment) 09/04/2024 Gave him heart palpations and made him feel like he was having a heart attack Penicillins Anaphylaxis High 02/02/2019 documented as of this encounter (statuses as of 09/28/2024) Medications levothyroxine (LEVOXYL) 100 MCG Tablet Take [...] Capsule by mouth every 8 hours. Active documented as of this encounter (statuses as of 09/28/2024) Active Problems Problem Noted Date Diagnosed Date Type 2 diabetes mellitus 09/21/2020 Essential hypertension 08/05/2018 Hyperlipidemia 08/05/2018 Hypothyroidism 08/05/2018 documented as of this encounter (statuses as of 09/28/2024) Immunizations Name Administration Dates Next Due TDAP [...] encounter Miscellaneous Notes * Telephone Encounter - Ruben Montoya OSA - 09/28/2024 9:51 AM EST Patient signed patient right of access form to release 7.1.22 to Present image(s) to self. Disc created and mailed to: Jaswinder Shannon [address] [place] [id number] documented in this encounter Plan of Treatment [...] filedocumented as of this encounter Care Teams General Magistrate Relationship Specialty Start Date End Date Rob Mcdaniel PA-C [address] [address] [place] [id number] PCP - General Physician Incident Analyst 09/21/22 documented as of this encounter
--- OUTSIDE RECORDS SUMMARY | 2024-10-18 11:23 | External Medical Summary | Summary of Care ---
Author Name Unknown Organization [facility] Address [address] [facility] [address] Phone [phone] Care Team Providers Care Crane Follower Name Role Phone Rob Mcdaniel PA-C Primary Care Provider Reason for Visit * Reason Comments Cold Symptoms Started with stuffy head and sinus congestion one week ago. Cough started yesterday. Today chest feels a little tight. Hot and cold spells but no fevers noted. Only 1 headache yesterday. Ears bothering him. Runny/stuffy nose. Nonproductive cough. Feels he has some minor SOB with activity. Achy. Tired. Laid in bed all day yesterday. Encounter Details Date Type Department Care Team (Late Contact Info) Description 09/04/2024 9:40 AM EST [facility] [address] [phone] Milagros Shields PA-C [address] [place] [address] Acute sinusitis, recurrence not specified, unspecified location*; Acute cough; Nasal congestion Allergies Active Allergy Reactions Criticality Noted Date Comments Aspirin Anaphylaxis High 02/02/2019 Ibuprofen Hives 02/02/2019 Empagliflozin Other (Please comment) 09/04/2024 Gave him heart palpations and made him feel like he was having a heart attack Penicillins Anaphylaxis High 02/02/2019 documented as of this encounter (statuses as of 09/04/2024) Medications Medication Sig Dispensed Refills Start Date End Date Status levothyroxine (LEVOXYL) 100 MCG Tablet Take 1 Tablet by mouth daily first thing in the morning. Active Modafinil 100 MG Oral TabletIndications:p atient does not recall dose 2 times a day. Active Naproxen 500 MG Oral Tablet 1 Tablet 2 times a day with morning and evening meals. Active Yaamdkgjiz-FIMB-Mqz feine 50-325-40 MG Oral Tablet (Fioricet) Take [...] Capsule by mouth every 8 hours. Active Doxycycline Hyclate 100 MG Oral Capsule Take 1 Capsule by mouth in the morning and 1 Capsule before bedtime. Do all this for 10 days. 20 Capsule 09/04/2024 09/14/2024 Active documented as of this encounter (statuses as of 09/04/2024) Active Problems Problem Noted Date Diagnosed Date Type 2 diabetes mellitus 09/21/2020 Essential hypertension 08/05/2018 Hyperlipidemia 08/05/2018 Hypothyroidism 08/05/2018 documented as of this encounter (statuses as of 09/04/2024) Immunizations Name Administration Dates Next Due TDAP [...] Sign Reading Time Taken Comments Blood Pressure 148/94 09/04/2024 9:34 AM EST Pulse 80 09/04/2024 9:34 AM EST Temperature 36.6 C (97.8 F) 09/04/2024 9:34 AM ES T Respiratory Rate 16 09/04/2024 9:34 AM EST Oxygen Saturation 98% 09/04/2024 9:34 AM EST Inhaled Oxygen Concentration - - Weight 108.9 kg (240 lb) 09/04/2024 9:34 AM EST Height - - Body Mass Index 32.55 03/10/2024 10:48 AM EDT documented in this encounter Progress Notes * Milagros Shields PA-C - 09/04/2024 9:50 AM EST Subjective: Jaswinder Shannon is a 53 year old male. Chief Complaint Patient presents with Cold Symptoms Started with stuffy head and sinus congestion one week ago. Cough started yesterday. Today chest feels a little tight. Hot and cold spells but no fevers noted. Only 1 headache yesterday. Ears bothering him. Runny/stuffy nose. Nonproductive cough. Feels he has some minor SOB with activity. Achy. Tired. Laid in bed all day yesterday. HPI: Patient presents here today with complaint of cough, drainage and sinus pressure x 1 week. Worsened in the last two days. Denies chest pain, sob, wheezing, fevers, N/V/D. Decreased appetite and energy level. Taking otcs. No recent ill contacts. Patient Active Problem List Diagnosis Essential hypertension Hyperlipidemia Hypothyroidism Type 2 diabetes mellitus (HCC) Current Outpatient Medications Medication Sig Dispense Refill Szwwnauqbc-WSTD-Zgiqrqiw 50-325-40 MG Oral Tablet (Fioricet) Take 1 Tablet by mouth. Doxycycline Hyclate 100 MG Oral Capsule Take 1 Capsule by mouth in the morning and 1 Capsule beforebedtime. Do all this for 10 days. 20 Capsule 0 glipiZIDE 10 MG Oral Tablet (Glucotrol) Take by mouth. levothyroxine (LEVOXYL) 100 MCG Tablet Take 1 Tablet by mouth daily first thing in the morning. Lisinopril-hydroCHLOROthiazide 20-12.5 MG Oral Tablet Take 1 Tablet by mouth. Magnesium 200 MG Oral Tablet take 1 daily by mouth metFORMIN HCl 1000 MG Oral Tablet (Glucophage) Take 1 Tablet by mouth. Modafinil 100 MG Oral Tablet 2 times a day. Naproxen 500 MG Oral Tablet 1 Tablet 2 times a day with morning and evening meals. Nortriptyline HCl 25 MG Oral Capsule (Pamelor) Take 2 Capsules by mouth. Ozempic (0.25 or 0.5 MG/DOSE) 2 MG/1.5ML Solution Pen-injector (Semaglutide(0.25 or 0.5MG/DOS)) Inject under the skin. Pregabalin 25 MG Oral Capsule (Lyrica) Take 1 Capsule by mouth every 8 hours. Rosuvastatin Calcium 5 MG Oral Tablet Take by mouth. Vitamin D3 25 MCG (1000 UT) Oral Tablet (Vitamin D3) No current facility-administered medications for this visit. Review of patient's allergies indicates: Allergen Reactions Aspirin Anaphylaxis Penicillins Anaphylaxis Ibuprofen Hives Jardiance [Empagliflozin] Other (Please comment) Gave him heart palpations and made him feel like he was having a heart attack ROS: all areas negative except as mentioned under HPI Physical Exam: BP 148/94 (BP Site: Left Arm, BP Position: Sitting, BP Cuff Size: Regular) | Pulse 80 | Temp 36.6 C (97.8 F) (Tympanic) | Resp 16 | Wt 108.9 kg (240 lb) | SpO2 98% | BMI 32.55 kg/m | BSA 2.35 m Physical Exam Vitals and nursing note reviewed. Constitutional: General: He is not in acute distress. Appearance: Normal appearance. He is not ill-appearing or toxic-appearing. HENT: Head: Normocephalic and atraumatic. Right Ear: Ear canal and external ear normal. A middle ear effusion is present. Tympanic membrane is not erythematous or bulging. Left Ear: Ear canal and external ear normal. A middle ear effusion is present. Tympanic membrane isnot erythematous or bulging. Nose: Congestion present. No rhinorrhea. Mouth/Throat: Mouth: Mucous membranes are moist. Pharynx: Oropharynx is clear. No oropharyngeal exudate or posterior oropharyngeal erythema. Eyes: General: Right eye: No discharge. Left eye: No discharge. Extraocular Movements: Extraocular movements intact. Conjunctiva/sclera: Conjunctivae normal. Pupils: Pupils are equal, round, and reactive to light. Cardiovascular: Rate and Rhythm: Normal rate and regular rhythm. Heart sounds: Normal heart sounds. Pulmonary: Effort: Pulmonary effort is normal. No respiratory distress. Breath sounds: No stridor. No wheezing, rhonchi or rales. Musculoskeletal: Cervical back: Normal range of motion. Lymphadenopathy: Cervical: No cervical adenopathy. Skin: Findings: No rash. Neurological: Mental Status: He is alert and oriented to person, place, and time. Assessment/Plan: Jaswinder was seen today for cold symptoms. Diagnoses and all orders for this visit: Acute sinusitis, recurrence not specified, unspecified location Acute cough Nasal congestion Other orders - Doxycycline Hyclate 100 MG Oral Capsule; Take 1 Capsule by mouth in the morning and 1 Capsule before bedtime. Do all this for 10 days. Supportive care discussed including rest, fluids and OTCs. Strict return/ED precautions given, pt agreeable to plan. Follow up with PCP. Milagros Shields PA-C [facility] [address] [place] [address] documented in this encounter Nursing Notes * Coty Frye, RN - 09/04/2024 9:36 AM EST Nursing Notes: CC: Chief Complaint Patient presents with Cold Symptoms Started with stuffy head and sinus congestion one week ago. Cough started yesterday. Today chest feels a little tight. Hot and cold spells but no fevers noted. Only 1 headache yesterday. Ears bothering him. Runny/stuffy nose. Nonproductive cough. Feels he has some minor SOB with activity. Achy. Tired. Laid in bed all day yesterday. Brief Hx: nobody else sick around pt. Works in school environment. Duration/Onset: see above. OTC meds: sudafed PE congestion and flu. Accompanied by: self documented in this encounter [...] of this encounter Visit Diagnoses Diagnosis Acute sinusitis, recurrence not specified, unspecified location- Primary Acute cough Nasal congestion Other diseases of nasal cavity and sinuses documented in this encounter Care Teams Crane Follower Relationship Specialty Start Date End Date Rob Mcdaniel PA-C [address] [place] [address] [place] [id number] PCP - General Physician Smart Grid Engineer 09/21/22 documented as of this encounter"
--- OUTSIDE RECORDS SUMMARY | 2024-10-18 11:23 | External Medical Summary | Summary of Care ---
Author Name Unknown Organization [facility] Address [address] [facility] [place] [address] Phone [phone] Care Team Providers Care Billing Typist Name Role Phone Rob Mcdaniel PA-C Primary Care Provider Reason for Visit * Reason Comments Urinary Tract Infection Symptoms Pt. Sta kenneth he had a bladder scan done on 09/09/2024. Showed almost a 2 inch bladder stone. Kidneys were clear of any stones. PT. Here today due to experiencing difficulty getting his urine stream started and having urinary retention issues. Urination a little painful as of this morning. No visible blood. No fevers. No back pain. Voiding more frequently and smaller amounts with weaker stream. Encounter Details Date Type Department Care Team (Late st Contact Info) Description 09/18/2024 12:50 PM EST [facility] [address] [place] [address] Lexie Sandoval CRNP [address] [place] [address] UTI symptoms* Allergies Active Allergy Reactions Criticality Noted Date Comments Aspirin Anaphylaxis High 02/02/2019 Ibuprofen Hives 02/02/2019 Empagliflozin Other (Please comment) 09/04/2024 Gave him heart palpations and made him feel like he was having a heart attack Penicillins Anaphylaxis High 02/02/2019 documented as of this encounter (statuses as of 09/18/2024) Medications levothyroxine (LEVOXYL) 100 MCG Tablet Take [...] Nitrofurantoin Monohyd Macro 100 MG Oral Capsule (Macrobid)Indic ations:UTI symptoms Take 1 Capsule by mouth in the morning and 1 Capsule before bedtime. Do all this for 7 days. With food until gone. 14 Capsule 09/18/2024 09/25/20 24 Active documented as of this encounter (statuses as of 09/18/2024) Active Problems Problem Noted Date Diagnosed Date Type 2 diabetes mellitus 09/21/2020 Essential hypertension 08/05/2018 Hyperlipidemia 08/05/2018 Hypothyroidism 08/05/2018 documented as of this encounter (statuses as of 09/18/2024) Immunizations Name Administration Dates Next Due TDAP [...] Sign Reading Time Taken Comments Blood Pressure 129/80 09/18/2024 12:47 PM EST Pulse 97 09/18/2024 12:47 PM EST Temperature 36.8 C (98.2 F) 09/18/2024 12:[address] Respiratory Rate 20 09/18/2024 12:47 PM EST Oxygen Saturation 97% 09/18/2024 12:47 PM EST Inhaled Oxygen Concentration - - Weight 107 kg (236 lb) 09/18/2024 12:47 PM EST Height - - Body Mass Index 32.01 03/10/2024 10:48 AM EDT documented in this encounter Progress Notes * Lexie Sandoval CRNP - 09/18/2024 1:09 PM EST [facility] [address] [place] [address] [email or web address] SUBJECTIVE Nursing Notes: Coty Frye RN 09/18/24 1255 Signed Nursing Notes: CC: Chief Complaint Patient presents with Urinary Tract Infection Symptoms Pt. Stated he had a bladder scan done on 09/09/2024. Showed almost a 2 inch bladder stone. Kidneys were clear of any stones. PT. Here today due to experiencing difficulty getting his urine stream started and having urinary retention issues. Urination a little painful as of this morning. No visible bl ood. No fevers. No back pain. Voiding more frequently and smaller amounts with weaker stream. Brief Hx: Pt. Noticed discoloration and cloudy appearing urine this morning. HIstory of UTI's but that just started this year. Pt. Waiting for official appointment date with urologist. Duration/Onset: see above. OTC meds: cranberry pills. naprosyn Accompanied by: self Jaswinder Shannon is a 53 year old male who presents with urinary tract symptoms. Patient was accompanied by Self. HPI: Severity of Symptoms: Minimal Modifying Factors (what was done since onset of Symptoms): cranberry pills, naprosyn Timing (How often does it occur): this AM ROS: Constitutional symptoms: no fever, no weight loss, no weakness, and no fatigue Pulmonary ROS: No cough, sputum, or hemoptysis, No wheezing, No shortness of breath, and No recent change in breathing Cardiovascular ROS: No chest pain, No shortness of breath, and No dyspnea on exertion Gastrointestional ROS: No abdominal pain, No change in bowel habits, No significant heartburn, No significant change in appetite, and No nausea, vomiting, diarrhea, or constipation Urinary symptoms: DYSURIA, BURNING, FREQUENCY, and URGENCY Symptom duration of 1 day(s) Reports fluid intake is adequate HISTORY: No past medical history on file. No [...] and Family: Three times a week Attends Sabianist Services: 1 to 4 times per year Active Member of Clubs or Organizations: Yes Attends Club or Organization Meetings: More than 4 times per year Marital Status: Living with partner Housing Stability: Not on file Current Outpatient Medications Medication Sig Dispense Refill levothyroxine (LEVOXYL) 100 MCG Tablet Take 1 Tablet by mouth daily first thing in the morning. Modafinil 100 MG Oral Tablet 2 times a day. Naproxen 500 MG Oral Tablet 1 Tablet 2 times a day with morning and evening meals. Dexdtqwqqn-YWVQ-Dfejissd 50-325-40 MG Oral Tablet (Fioricet) Take 1 Tablet by mouth. Lisinopril-hydroCHLOROthiazide 20-12.5 MG Oral Tablet [...] 1 Capsule by mouth every 8 hours. Nitrofurantoin Monohyd Macro 100 MG Oral Capsule (Macrobid) Take 1 Capsule by mouth in the morning and 1 Capsule before bedtime. Do all this for 7 days. With food until gone. 14 Capsule 0 glipiZIDE 10 MG Oral Tablet (Glucotrol) Take by mouth. (Patient not taking: Reported on 09/18/2024) No current facility-administered medications for this visit. Review of patient's allergies indicates: Allergen Reactions Aspirin Anaphylaxis Penicillins Anaphylaxis Ibuprofen Hives Jardiance [Empagliflozin] Other (Please comment) Gave him heart palpations and made him feel like he was having a heart attack No family history on file. Results for orders placed or performed in visit on 08/25/24 CULTURE, URINE, QUANTITATIVE Specimen: Urine, Clean Catch Result Value Ref Range Culture Growth >100,000 colonies/mL Enterococcus species (A) Susceptibility Enterococcus species - MICROBROTH DILUTIONS Ampicillin Susceptible Nitrofurantoin Susceptible Tetracycline Resistant Vancomycin Susceptible OBJECTIVE: BP 129/80 (BP Site: Left Arm, BP Position: Sitting, BP Cuff Size: Regular) | Pulse 97 | Temp 36.8 C (98.2 F) (Tympanic) | Resp 20 | Wt 107 kg (236 lb) | SpO2 97% | BMI 32.01 kg/m | BSA 2.33 m Wt Readings from Last 1 Encounters: 09/18/24 107 kg (236 lb) General appearance: awake, alert, no apparent distress Abdominal Exam: back: NEG CVA tenderness and abd: +suprapubic tenderness to palpation, no R/R/G, +BS Respiratory: clear to auscultation, no rhonchi, no wheezes, and no crackles Heart: regular rate, regular rhythm, no murmurs , and no rubs Assessment/Plan: UTI symptoms (Primary) - CULTURE, URINE, QUANTITATIVE - Nitrofurantoin Monohyd Macro 100 MG Oral Capsule (Macrobid); Take 1 Capsule by mouth in the morning and 1 Capsule before bedtime. Do all this for 7 days. With food until gone. Unable to run POC testing at this time Culture sent Will inform patient of results when finalized Reviewed medication regime and side effects Encourage fluid intake Practice good hand hygiene OTC tylenol/ibuprofen per box instructions for comfort Monitor for signs/symptoms of infection: fever, n/v, SOB, CP, sweats, chills Patient stated understanding and had no other issues at this time Follow Up: Return if symptoms worsen or fail to improve. TIFFANIE Sanchez Count Includes [facility] [place] [place] [address] documented in this encounter Nursing Notes * Coty Frye, RN - 09/18/2024 12:50 PM EST Nursing Notes: CC: Chief Complaint Patient presents with Urinary Tract Infection Symptoms Pt. Stated he had a bladder scan done on 09/09/2024. Showed almost a 2 inch bladder stone. Kidneys were clear of any stones. PT. Here today due to experiencing difficulty getting his urine stream started and having urinary retention issues. Urination a little painful as of this morning. No visible bl ood. No fevers. No back pain. Voiding more frequently and smaller amounts with weaker stream. Brief Hx: Pt. Noticed discoloration and cloudy appearing urine this morning. HIstory of UTI's but that just started this year. Pt. Waiting for official appointment date with urologist. Duration/Onset: see above. OTC meds: cranberry pills. naprosyn Accompanied by: self documented in this encounter Plan of Treatment Pending Results Name Type Priority Associated Diagnoses Date /Time CULTURE, URINE, QUANTITATIVE Lab Routine UTI symptoms 09/18/2024 1:12 PM EST Health Maintenance Due Date Last Done Comments [...] as of this encounter Visit Diagnoses Diagnosis UTI symptoms- Primary Other symptoms involving urinary system documented in this encounter Care Teams Billing Typist Relationship Specialty Start Date End Date Rob Mcdaniel PA-C [address] [place] [address] [place] [address] PCP - General Physician Mid Level Java Developer 09/21/22 documented as of this encounter"
--- OUTSIDE RECORDS SUMMARY | 2024-10-18 11:23 | External Medical Summary | Summary of Care ---
Author Name Unknown Organization [facility] [address] [facility] [address] Phone [phone] Care Team Providers Care Fruit Cutter Name Role Phone Rob Mcdaniel PA-C Primary Care Provider Reason for Visit * Reason Comments Urinary Tract Infection Symptoms * Auth/Cert Specialty Diagnoses / Procedures Referred By Brandon martin Referred To Contact [facility] [place] [address] [place] [id number] Referral ID Status Reason Start Date Expiration Date Visits Re quested Visits Authorized [id number] Encounter Details Date Type Department Care Team (Late st Contact Info) Description 08/25/2024 12:20 PM EDT [facility] [place] [address] [address] [address] Lexie Sandoval CRNP [address] [place] [address] [address] UTI symptoms* Allergies Active Allergy Reactions Criticality Noted Date Comments Aspirin Anaphylaxis High 02/02/2019 Ibuprofen Hives 02/02/2019 Penicillins Anaphylaxis High 02/02/2019 documented as of this encounter (statuses as of 08/25/2024) Medications Medication Sig Dispensed Refills Start Date End Date Status levothyroxine (LEVOXYL) 100 MCG Tablet Take 1 Tablet by mouth daily first thing in the morning. Active Modafinil 100 MG Oral TabletIndications:p atient does not recall dose 2 times a day. Active Naproxen 500 MG Oral Tablet 1 Tablet 2 times a day with morning and evening meals. Active Facuadkphg-JCPW-Dvl feine 50-325-40 MG Oral Tablet (Fioricet) Take [...] as of this encounter (statuses as of 08/25/2024) Active Problems Problem Noted Date Diagnosed Date Type 2 diabetes mellitus 09/21/2020 Essential hypertension 08/05/2018 Hyperlipidemia 08/05/2018 Hypothyroidism 08/05/2018 documented as of this encounter (statuses as of 08/25/2024) Immunizations Name Administration Dates Next Due TDAP (age 10 and older)(Boostrix) 02/18/2021 documented as of this encounter Social History Tobacco Use Types Packs/Day Years Used Date Smoking Tobacco: Former Smokeless Tobacco: Current Chew Tobacco Cessation:Ready to Q uit: Not Asked; Counseling Given: Not Answered Alcohol Use Standard Drinks/Week Comments Not Currently [...] Sign Reading Time Taken Comments Blood Pressure 127/85 08/25/2024 12:29 PM EDT Pulse 94 08/25/2024 12:29 PM EDT Temperature 36.6 C (97.9 F) 08/25/2024 12:29 PM E DT Respiratory Rate 18 08/25/2024 12:29 PM EDT Oxygen Saturation 97% 08/25/2024 12:29 PM EDT Inhaled Oxygen Concentration - - Weight 107.5 kg (237 lb) 08/25/2024 12:29 PM EDT Height - - Body Mass Index 32.14 03/10/2024 10:48 AM EDT documented in this encounter Progress Notes * Lexie Sandoval CRNP - 08/25/2024 12:45 PM EDT [facility] [address] [place] [address] [email or web address] SUBJECTIVE Nursing Notes: Marta Maxwell CCMA 08/25/24 1233 Signed Nursing Notes: CC: Chief Complaint Patient presents with Urinary Tract Infection Symptoms Brief Hx: Pt presents with UTI symptoms. More frequent urination with burning and pain, Duration/Onset: 3-4 days ago OTC meds: cranberry pills Accompanied by: self Jaswinder Shannon is a 53 year old male who presents with urinary tract symptoms. Patient was accompanied by Self. HPI: Severity of Symptoms: Minimal Modifying Factors (what was done since onset of Symptoms): cranberry pills Timing (How often does it occur): 4 days Seen in clinic 07/17- UTI- entercoccus, passed kidney stone ROS: Constitutional symptoms: no fever, no weight [...] or constipation Urinary symptoms: DYSURIA, BURNING, FREQUENCY, URGENCY, PRESSURE, and ODOR Symptom duration of 4 day(s) Reports fluid intake is adequate HISTORY: [...] Social History Narrative Not on file Social Determinants of Health Financial Resource Strain: Medium Risk (04/12/2024) Received from [facility] Ambulatory Overall Financial Resource Strain (CARDIA) Difficulty of Paying Living Expenses: Somewhat hard Food Insecurity: No Food Insecurity (04/12/2024) Received from [facility] Ambulatory Hunger Vital Sign Worried About Running Out of Food in the Last Year: Never true Ran Out of Food in the Last Year: Never true Transportation Needs: No Transportation Needs (04/12/2024) Received from [facility] Ambulatory PRAPARE - Transportation Lack of Transportation (Medical): No Lack of Transportation (Non-Medical): No Social Connections: Unknown (04/19/2024) Social Connections How often do you feel lonely or isolated from those around you? (Adult - for ages 18 years and over): Not on file Housing Stability: Not on file Current Outpatient Medications Medication Sig Dispense Refill levothyroxine (LEVOXYL) 100 MCG Tablet Take 1 Tablet by mouth daily first thing in the morning. Modafinil 100 MG Oral Tablet 2 times a day. Naproxen 500 MG Oral Tablet 1 Tablet 2 times a day with morning and evening meals. Naoklapftl-XDUX-Wcaephzx 50-325-40 MG Oral Tablet (Fioricet) Take 1 [...] by mouth. (Patient not taking: Reported on 03/10/2024) No current facility-administered medications for this visit. Review of patient's allergies indicates: Allergen Reactions Aspirin Anaphylaxis Penicillins Anaphylaxis Ibuprofen Hives No family history on file. Results for orders placed or performed in visit on 07/17/24 CULTURE, URINE, QUANTITATIVE Specimen: Urine, Clean Catch Result Value Ref Range Culture Growth >100,000 colonies/mL Enterococcus species (A) Susceptibility Enterococcus species - MICROBROTH DILUTIONS Ampicillin Susceptible Nitrofurantoin Susceptible Tetracycline Resistant Vancomycin Susceptible URINALYSIS, POINT OF CARE (ENTER/EDIT) Result Value Ref Range Color, Urine Dark Yellow (A) Yellow or Light Yellow Clarity, Urine Turbid (A) Clear Glucose, Urine 100 (A) Negative mg/dL Bilirubin, Urine Negative Negative Ketone, Urine Negative Negative mg/dL Specific [place], Urine 1.030 1.003 - 1.030 Blood, Urine Large (A) Negative pH, Urine 5.5 5.0 - 7.5 units Protein, Urine >=300 (A) Negative mg/dL Urobilinogen, Urine 0.2 0.2 - 1.0 mg/dL Nitrite, Urine Negative Negative Esterase, Urine Small (A) Negative OBJECTIVE: BP 127/85 | Pulse 94 | Temp 36.6 C (97.9 F) (Tympanic) | Resp 18 | Wt 107.5 kg (237 lb) | SpO2 97% | BMI 32.14 kg/m | BSA 2.34 m Wt Readings from Last 1 Encounters: 08/25/24 107.5 kg (237 lb) General appearance: awake, alert, no apparent distress Abdominal Exam: back: neg CVA tenderness and abd: +suprapubic tenderness to palpation, no R/R/G, +BS Respiratory: clear to auscultation, no rhonchi, no wheezes, and no crackles Heart: regular rate, regular rhythm, no murmurs , and no rubs Assessment/Plan: UTI symptoms (Primary) - Nitrofurantoin Monohyd Macro 100 MG Oral [...] worsen or fail to improve. [facility] [address] [place] [address] documented in this encounter Nursing Notes * Marta Maxwell CCMA - 08/25/2024 12:31 PM EDT Nursing Notes: CC: Chief Complaint Patient presents with Urinary Tract Infection Symptoms Brief Hx: Pt presents with UTI symptoms. More frequent urination with burning and pain, Duration/Onset: 3-4 days ago OTC meds: cranberry pills Accompanied by: self [...] system documented in this encounter Care Teams Fruit Cutter Relationship Specialty Start Date End Date Rob Mcdaniel PA-C [address] [facility] [place] [address] PCP - General Physician Artificial Limb Fitter 09/21/22 documented as of this encounter"
--- OUTSIDE RECORDS SUMMARY | 2024-10-18 11:23 | External Medical Summary | Summary of Care ---
Author Name Unknown Organization [facility] Address [address] [place] [address] Phone [phone] Care Team Providers Care Shipping Receiving Clerk Name Role Phone Rob Mcdaniel PA-C Primary Care Provider Encounter Details Date Type Department Care Team (Late st Contact Info) Description 09/06/2024 Orders Only Access [facility], [place] [address] [place] [address] Ext *DO NOT REMOVE THIS DEPARTMENT* [place] [address] Requisition, External Radiology [address] [place] [address] Benign neoplasm of unspecified kidney* Allergies Active Allergy Reactions Criticality Noted Date Comments Aspirin Anaphylaxis High 02/02/2019 Ibuprofen Hives 02/02/2019 Empagliflozin Other (Please comment) 09/04/2024 Gave him heart palpations and made him feel like he was having a heart attack Penicillins Anaphylaxis High 02/02/2019 documented as of this encounter (statuses as of 09/06/2024) Medications Medication Sig Dispensed Refills Start Date End Date Status levothyroxine (LEVOXYL) 100 MCG Tablet Take 1 Tablet by mouth daily first thing in the morning. Active Modafinil 100 MG Oral TabletIndications:p atient does not recall dose 2 times a day. Active Naproxen 500 MG Oral Tablet 1 Tablet 2 times a day with morning and evening meals. Active Misecjlaib-YSMD-Ivo feine 50-325-40 MG Oral Tablet (Fioricet) Take [...] as of this encounter (statuses as of 09/06/2024) Active Problems Problem Noted Date Diagnosed Date Type 2 diabetes mellitus 09/21/2020 Essential hypertension 08/05/2018 Hyperlipidemia 08/05/2018 Hypothyroidism 08/05/2018 documented as of this encounter (statuses as of 09/06/2024) Immunizations Name Administration Dates Next Due TDAP [...] on file documented as of this encounter Plan of Treatment Upcoming Encounters Date Type Department Care Team (Late st Contact Info) Description 09/09/2024 7:30 AM EST Appointment Radiology, [place] [address] [place] [address] Scheduled Orders Name Type Priority Associated Diagnoses Orde r Schedule US RENAL Medical Imaging Routine Benign neoplasm of unspecified kidney Expected: 09/09/2024, Expires: 11/08/2024 Health Maintenance Due Date Last Done Comments [...] as of this encounter Visit Diagnoses Diagnosis Benign neoplasm of unspecified kidney- Primary documented in this encounter Care Teams Shipping Receiving Clerk Relationship Specialty Start Date End Date Rob Mcdaniel PA-C [address] [place] [address] [place] [address] PCP - General Physician Semiconductor Wafers Etch Operator 09/21/22 documented as of this encounter
--- OUTSIDE RECORDS SUMMARY | 2024-10-18 11:23 | External Medical Summary ---
Author Name Unknown Address Unknown Organization K01:LABORATORY [facility] - [address] [place] [address] Laboratory Report Ordering Provider Test Date Status JOEL DAVID 09/30/2024 09:39:11 Final Observation Date Value Abnormality Reference (Units ) Status Bacteria identified in Specimen by Culture 09/30/2024 09:39:11 [id number]^ENTEROC OCCUS SPECIES Abnormal Final >100,000 colonies/mL Enteroc occus species Performing Location LAB[facility]ATORY [facility] - [address] [place] [address] Ordering Provider Test Date Status JOEL DAVID 09/30/2024 09:39:11 Final Observation Date Value Abnormality Reference (Units ) Status Ampicillin 09/30/2024 09:39:11 <=2 Susceptible Final Nitrofurantoin susceptibility 09/30/2024 09:39:11 <=16 Susceptible Final Tetracyclinesusceptibility 09/30/2024 09:39:11 >=16 Resistant Final Vancomycinsusceptibility 09/30/2024 09:39:11 1 Susceptible Final Test: Culture, Urine, Quanti tative
Specimen Source: Urine, Clean Catch
Specimen Type: Urine
Specimen Date: 09/30/2024 0939
Result Date: 10/02/2024 1209
Result Status: Final result
Abnormal: Yes
Resulting Lab: LAB[facility]ATORY [facility]
[address]
[place] [address]

CULTURE

>100,000 colonies/mL Enterococcus species (Abnormal)

SUSCEPTIBILITY

Enterococcus
species
METHOD MICROBROTH
DILUTIONS

AMPICILLIN <=2 Susceptible
NITROFURANTOIN <=16 Susceptible
TETRACYCLINE >=16 Resistant
VANCOMYCIN 1 Susceptible

null Performing Location [facility]ORY [facility] [address] [facility] [address]
--- OUTSIDE RECORDS SUMMARY | 2024-10-18 11:23 | External Medical Summary | Summary of Care ---
Author Name Unknown Organization [facility] [address] [place] [address] Phone [phone] Care Team Providers Care Counselor Supervisor Name Role Phone Rob Mcdaniel PA-C Primary Care Provider Reason for Visit * Auth/Cert Specialty Diagnoses / Procedures Referred By Brandon martin Referred To Contact [facility] [address] [place] [address] Phone: [phone] [address] Phone: tel: fax: Referral ID Status Reason Start Date Expiration Date Visits Re quested Visits Authorized [id number] Encounter Details Date Type Department Care Team (Latest Contact Info) Description 09/09/2024 7:30 AM EST - 09/09/2024 11:59 PM EST Hospital Encounter Radiology[address] [id number] Arrived Discharge Disposition: Home - Self Care Allergies Active Allergy Reactions Criticality Noted Date Comments Aspirin Anaphylaxis High 02/02/2019 Ibuprofen Hives 02/02/2019 Empagliflozin Other (Please comment) 09/04/2024 Gave him heart palpations and made him feel like he was having a heart attack Penicillins Anaphylaxis High 02/02/2019 documented as of this encounter (statuses as of 09/10/2024) Medications levothyroxine (LEVOXYL) 100 MCG Tablet Take [...] this for 10 days. 20 Capsule 09/04/2024 09/14/20 24 Active documented as of this encounter (statuses as of 09/10/2024) Active Problems Problem Noted Date Diagnosed Date Type 2 diabetes mellitus 09/21/2020 Essential hypertension 08/05/2018 Hyperlipidemia 08/05/2018 Hypothyroidism 08/05/2018 documented as of this encounter (statuses as of 09/10/2024) Immunizations Name Administration Dates Next Due TDAP [...] as of this encounter Plan of Treatment Health Maintenance [...] Procedure Name Priority Date/Time Associated Diagnosis Comments US RENAL Routine 09/09/2024 8:25 AM EST Benign neoplasm of unspecified kidney documented in this encounter Results * US RENAL (09/09/2024 8:25 AM EST) Anatomical Region Laterality Modality Abdomen, Body Ultrasound 09/09/2024 7:41 AM EST Impressions 09/10/2024 11:25 AM EST IMPRESSION: 1. Normal appearance of both kidneys. 2. Bladder stone. Irregular thickened urinary bladder wall consistent with chronic cystitis. Consider cystoscopy. THIS DOCUMENT HAS BEEN ELECTRONICALLY SIGNED BY JOANN RAMSAY MD Narrative 09/10/2024 11:25 AM EST PROCEDURE INFORMATION: Exam: US Retroperitoneal, Complete, Kidneys and Bladder Exam date and time: 09/09/2024 7:41 AM Age: 53 years old Clinical indication: Benign neoplasm of unspecified kidney; Additional info: Kidney mass TECHNIQUE: Imaging protocol: Real-time ultrasound of the retroperitoneum with image documentation. Complete exam focused on the bilateral kidneys and urinary bladder. COMPARISON: No relevant prior studies available. FINDINGS: Right kidney: 12.3 cm. No hydronephrosis or nephrolithiasis. No renal mass. Left kidney: 11.6 cm. No hydronephrosis or nephrolithiasis. No renal mass. Urinary bladder: Urinary bladder wall is thickened and irregular. Intraluminal stone measuring 18 mm. Aorta: Abdominal aorta: Proximal 2.9 x 2.7 cm. Mid 2.2 x 2.2 cm. Distal 1.8 x 2.1 cm. Procedure Note Joann Ramsay MD - 09/10/2024 PROCEDURE INFORMATION: Exam: US Retroperitoneal, Complete, Kidneys and Bladder Exam date and time: 09/09/2024 7:41 AM Age: 53 years old Clinical indication: Benign neoplasm of unspecified kidney; Additionalinfo: Kidney mass TECHNIQUE: Imaging protocol: Real-time ultrasound of the retroperitoneum with image documentation. Complete exam focused on the bilateral kidneys and urinary bladder. COMPARISON: No relevant prior studies available. FINDINGS: Right kidney: 12.3 cm. No hydronephrosis or nephrolithiasis. No renalmass. Left kidney: 11.6 cm. No hydronephrosis or nephrolithiasis. No renal mass. Urinary bladder: Urinary bladder wall is thickened and irregular.Intraluminal stone measuring 18 mm. Aorta: Abdominal aorta: Proximal 2.9 x 2.7 cm. Mid 2.2 x 2.2 cm. Distal1.8 x 2.1 cm. IMPRESSION IMPRESSION: 1. Normal appearance of both kidneys. 2. Bladder stone. Irregular thickened urinary bladder wall consistentwith chronic cystitis. Consider cystoscopy. THIS DOCUMENT HAS BEEN ELECTRONICALLY SIGNED BY JOANN RAMSAY MD us [facility] ULTRASOUND Final Result documented in this encounter Visit Diagnoses Diagnosis Benign neoplasm of unspecified kidney documented in this encounter Care Teams Counselor Supervisor Relationship Specialty Start Date End Date Rob Mcdaniel PA-C [address] [address] [place] [id number] PCP - General Physician Transcript Clerk 09/21/22 documented as of this encounter
--- OUTSIDE RECORDS SUMMARY | 2024-10-18 11:23 | External Medical Summary | Summary of Care ---
Author Name Unknown Organization [facility] Address [address] [place] [address] Phone [phone] Care Team Providers Care Packer Dried Beef Name Role Phone Rob Mcdaniel PA-C Primary Care Provider Reason for Visit * Reason Onset Date Comments Appointment 09/30/2024 TRIAGE 09/30/2024 Encounter Details Date Type Department Care Team (Late st Contact Info) Description 09/30/2024 Telephone Urology, [place] [address] [place] [address] Services, Scheduling [address] [place] [address] Appointment; TRIAGE Allergies Active Allergy Reactions Criticality [...] filedocumented as of this encounter Care Teams Packer Dried Beef Relationship Specialty Start Date End Date Rob Mcdaniel PA-C [address] [place] [address] PCP - General Physician Buttonhole Tacker 09/21/22 documented as of this encounter
--- OUTSIDE RECORDS SUMMARY | 2024-10-18 11:23 | External Medical Summary ---
Author Name Unknown Address Unknown Organization [id number][place] [place] [address] [facility] [place] [address] Laboratory Report Ordering Provider Test Date Status YESSENIA,ALEXANDER 08/25/2024 13:41:48 Final Observation Date Value Abnormality Reference (Units ) Status Bacteria identified in Specimen by Culture 08/25/2024 13:41:48 [id number]^ENTEROC OCCUS SPECIES Abnormal Final >100,000 colonies/mL Enteroc occus species Performing Location [facility] [place] [address] [facility] [place] [address] Ordering Provider Test Date Status YESSENIA,ALEXANDER 08/25/2024 13:41:48 Final Observation Date Value Abnormality Reference (Units ) Status Ampicillin 08/25/2024 13:41:48 <=2 Susceptible Final Nitrofurantoin susceptibility 08/25/2024 13:41:48 <=16 Susceptible Final Tetracyclinesusceptibility 08/25/2024 13:41:48 >=16 Resistant Final Vancomycinsusceptibility 08/25/2024 13:41:48 1 Susceptible Final Test: Culture, Urine, Quanti tative
Specimen Source: Urine, Clean Catch
Specimen Type: Urine
Specimen Date: 08/25/2024 1341
Result Date: 08/27/2024 1308
Result Status: Final result
Abnormal: Yes
Resulting Lab: [facility] [place]
[address]
[place] [address]

CULTURE

>100,000 colonies/mL Enterococcus species (Abnormal)

SUSCEPTIBILITY

Enterococcus
species
METHOD MICROBROTH
DILUTIONS

AMPICILLIN <=2 Susceptible
NITROFURANTOIN <=16 Susceptible
TETRACYCLINE >=16 Resistant
VANCOMYCIN 1 Susceptible

null Performing Location [facility] [place] [address] [facility] [address]
--- OUTSIDE RECORDS SUMMARY | 2024-10-18 11:23 | External Medical Summary ---
Author Name Unknown Address Unknown Organization [id number][place] [place] [address] [facility] [place] [address] Laboratory Report Ordering Provider Test Date Status YESSENIA,ALEXANDER 09/18/2024 13:12:01 Final Observation Date Value Abnormality Reference (Units ) Status Bacteria identified in Specimen by Culture 09/18/2024 13:12:01 [id number]^ENTEROC OCCUS SPECIES Abnormal Final 10,000 to 100,000 colonies/m L Enterococcus species Performing Location [facility] [place] [address] [address] Ordering Provider Test Date Status YESSENIA,ALEXANDER 09/18/2024 13:12:01 Final Observation Date Value Abnormality Reference (Units ) Status Ampicillin 09/18/2024 13:12:01 <=2 Susceptible Final Nitrofurantoin susceptibility 09/18/2024 13:12:01 <=16 Susceptible Final Tetracyclinesusceptibility 09/18/2024 13:12:01 >=16 Resistant Final Vancomycinsusceptibility 09/18/2024 13:12:01 1 Susceptible Final Test: Culture, Urine, Quanti tative
Specimen Source: Urine, Clean Catch
Specimen Type: Urine
Specimen Date: 09/18/2024 1312
Result Date: 09/20/2024 1359
Result Status: Final result
Abnormal: Yes
Resulting Lab: [facility] [place]
[address]
[place] [address]

CULTURE

10,000 to 100,000 colonies/mL Enterococcus species (Abnormal)

SUSCEPTIBILITY

Enterococcus
species
METHOD MICROBROTH
DILUTIONS

AMPICILLIN <=2 Susceptible
NITROFURANTOIN <=16 Susceptible
TETRACYCLINE >=16 Resistant
VANCOMYCIN 1 Susceptible

null Performing Location [facility] [place] [address] [facility] [address]
--- OUTSIDE RECORDS SUMMARY | 2024-10-18 11:23 | External Medical Summary | Summary of Care ---
Author Name Unknown Organization [facility] Address [address] [place] [address] Phone [phone] Care Team Providers Care Steel Sash Erector Name Role Phone Rob Mcdaniel PA-C Primary Care Provider Reason for Visit * Reason Onset Date Comments Appointment 09/30/2024 TRIAGE 09/30/2024 Encounter Details Date Type Department Care Team (Late st Contact Info) Description 09/30/2024 Telephone Urology, [place] [address] [place] [address] Services, Scheduling [address] [place] [address] Appointment; TRIAGE Allergies Active Allergy Reactions Criticality [...] filedocumented as of this encounter Care Teams Steel Sash Erector Relationship Specialty Start Date End Date Rob Mcdaniel PA-C [address] [place] [address] PCP - General Physician Taxation Agent 09/21/22 documented as of this encounter
--- OUTSIDE RECORDS SUMMARY | 2024-10-18 11:23 | External Medical Summary | Summary of Care ---
Author Name Unknown Organization [facility] Address [address] [facility] [address] Phone [phone] Care Team Providers Care Dresser Tender Name Role Phone Rob Mcdaniel PA-C Primary Care Provider Reason for Visit * Reason Comments Urinary Tract Infection Symptoms * Auth/Cert Specialty Diagnoses / Procedures Referred By Brandon martin Referred To Contact [facility] [place] [address] [address] [place] [id number] Referral ID Status Reason Start Date Expiration Date Visits Re quested Visits Authorized [id number] Encounter Details Date Type Department Care Team (Late st Contact Info) Description 08/25/2024 12:20 PM EDT [facility] [place] [address] Lexie Munoz CRNP [address] [place] [address] UTI [...] day with morning and evening meals. Active Nnmnvpdtqz-SVMO-Dvh feine 50-325-40 MG Oral Tablet (Fioricet) Take [...] in this encounter Progress Notes * Lexie Munoz CRNP - 08/25/2024 12:45 PM EDT [facility] [address] [place] [place] [address] [email or web address] SUBJECTIVE Nursing Notes: Marta Maxwell CCMA 08/25/24 [...] Resource Strain: Medium Risk (04/12/2024) Received from [facility] Ambulatory Overall Financial Resource Strain (CARDIA) Difficulty of Paying Living Expenses: Somewhat hard Food Insecurity: No Food Insecurity (04/12/2024) Received from [facility] Ambulatory Hunger Vital Sign Worried About Running Out of Food in the Last Year: Never true Ran Out of Food in the Last Year: Never true Transportation Needs: No Transportation Needs (04/12/2024) Received from [facility] Ambulatory PRAPARE - Transportation Lack of Transportation [...] a day with morning and evening meals. Boffiqarzr-FAAD-Umeixmoe 50-325-40 MG Oral Tablet (Fioricet) Take 1 [...] Negative Ketone, Urine Negative Negative mg/dL Specific [place], Urine 1.030 1.003 - 1.030 Blood, Urine [...] worsen or fail to improve. [facility] [address] [place] [address] documented in this encounter Nursing Notes * Marta Maxwell CCMA - 08/25/2024 12:31 PM EDT Nursing Notes: CC: Chief Complaint Patient presents with Urinary Tract Infection Symptoms Brief Hx: Pt presents with UTI symptoms. More frequent urination with burning and pain, Duration/Onset: 3-4 days ago OTC meds: cranberry pills Accompanied by: self documented in this encounter Miscellaneous Notes * Addendum Note - Lexie Munoz CRNP - 08/25/2024 1:41 PM EDTAddended by: LEXIE MUNOZ on: 08/25/2024 01:41 PM Modules accepted: Orders documented in this encounter Plan of Treatment Scheduled Orders Name Type Priority Associated Diagnoses Orde r Schedule CULTURE, URINE, QUANTITATIVE Lab Routine UTI symptoms Ordered: 08/25/2024 Health Maintenance Due Date Last Done Comments [...] system documented in this encounter Care Teams Dresser Tender Relationship Specialty Start Date End Date Rob Mcdaniel PA-C [address] [address] [place] [address] PCP - General Physician Community Organization Worker 09/21/22 documented as of this encounter"
--- OUTSIDE RECORDS SUMMARY | 2024-10-18 11:23 | External Medical Summary | Summary of Care ---
Author Name Unknown Organization [facility] Address [address] [facility] [address] Phone [phone] Care Team Providers Care Sugarcane Planter Name Role Phone Rob Mcdaniel PA-C Primary Care Provider Reason for Visit * Reason Comments Urinary Tract Infection Symptoms * Auth/Cert Specialty Diagnoses / Procedures Referred By Brandon martin Referred To Contact [facility] [place] [address] [place] [address] Referral ID Status Reason Start Date Expiration Date Visits Re quested Visits Authorized [id number] Encounter Details Date Type Department [...] day with morning and evening meals. Active Mvhpldacqf-NATC-Cqn feine 50-325-40 MG Oral Tablet (Fioricet) Take [...] Munoz CRNP - 08/25/2024 12:45 PM EDT [facility] - [facility] [address] [place] [place] [address] [email or web address] SUBJECTIVE Nursing Notes: Marta Maxwell CCMA 08/25/24 [...] Resource Strain: Medium Risk (04/12/2024) Received from [facility] Ambulatory Overall Financial Resource Strain (CARDIA) Difficulty of Paying Living Expenses: Somewhat hard Food Insecurity: No Food Insecurity (04/12/2024) Received from [facility] Ambulatory Hunger Vital Sign Worried About Running Out of Food in the Last Year: Never true Ran Out of Food in the Last Year: Never true Transportation Needs: No Transportation Needs (04/12/2024) Received from [facility] Ambulatory PRAPARE - Transportation Lack of [...] a day with morning and evening meals. Drcmqmxyux-EZFR-Amdjerqa 50-325-40 MG Oral Tablet (Fioricet) Take 1 [...] Negative Ketone, Urine Negative Negative mg/dL Specific [place], Urine 1.030 1.003 - 1.030 Blood, Urine [...] worsen or fail to improve. [facility] [address] [place] [address] documented in this encounter Nursing Notes * [...] CULTURE, URINE, QUANTITATIVE Lab Routine UTI symptoms 08/25/2024 1:41 PM EDT Health Maintenance Due Date Last Done Comments [...] system documented in this encounter Care Teams Sugarcane Planter Relationship Specialty Start Date End Date Rob Mcdaniel PA-C [address] [facility] [address] [address] [place] [address] PCP - General Physician Senior Escrow Officer 09/21/22 documented as of this encounter"
--- OUTSIDE RECORDS SUMMARY | 2024-10-18 11:23 | External Medical Summary | Summary of Care ---
Author Name Unknown Organization [facility] Address [address] [facility] [place] [address] Phone [phone] Care Team Providers Care Picker Feeder Name Role Phone Rob Mcdaniel PA-C Primary Care Provider Reason for Visit * Reason Comments Urinary Tract Infection Symptoms * Auth/Cert Specialty Diagnoses / Procedures Referred By Brandon martin Referred To Contact [facility] [place] [id number] Referral ID Status Reason Start Date Expiration Date Visits Re quested Visits Authorized [id number] [phone] Encounter Details Date Type Department Care Team (Late st Contact Info) Description 07/17/2024 8:00 AM EDT [facility] [place] [address] [address] Lexie Sandoval CRNP [address] [place] [address] Acute cystitis with hematuria*; UTI symptoms Allergies Active Allergy Reactions Criticality Noted Date Comments Aspirin Anaphylaxis High 02/02/2019 Ibuprofen Hives 02/02/2019 Penicillins Anaphylaxis High 02/02/2019 documented as of this encounter (statuses as of 07/17/2024) Medications Medication Sig Dispensed Refills Start Date End Date Status levothyroxine (LEVOXYL) 100 MCG Tablet Take 1 Tablet by mouth daily first thing in the morning. Active Modafinil 100 MG Oral TabletIndications:p atient does not recall dose 2 times a day. Active Naproxen 500 MG Oral Tablet 1 Tablet 2 times a day with morning and evening meals. Active Rtbseylxmf-LLDU-Vez feine 50-325-40 MG Oral Tablet (Fioricet) Take [...] Oral Tablet (Vitamin D3) 06/16/2022 Activ e Ciprofloxacin HCl 500 MG Oral Tablet (Cipro)Indications: Acute cystitis with hematuria Take 1 Tablet by mouth in the morning and 1 Tablet before bedtime. Do all this for 10 days. 20 Tablet 07/17/2024 07/27/2024 Active documented as of this encounter (statuses as of 07/17/2024) Active Problems Problem Noted Date Diagnosed Date Type 2 diabetes mellitus 09/21/2020 Essential hypertension 08/05/2018 Hyperlipidemia 08/05/2018 Hypothyroidism 08/05/2018 documented as of this encounter (statuses as of 07/17/2024) Immunizations Name Administration Dates Next Due TDAP [...] Sign Reading Time Taken Comments Blood Pressure 137/82 07/17/2024 8:14 AM EDT Pulse 88 07/17/2024 8:14 AM EDT Temperature 36.3 C (97.4 F) 07/17/2024 8:14 AM ED T Respiratory Rate 18 07/17/2024 8:14 AM EDT Oxygen Saturation 99% 07/17/2024 8:14 AM EDT Inhaled Oxygen Concentration - - Weight - - Height - - Body Mass Index - - documented in this encounter Progress Notes * Lexie Sandoval CRNP - 07/17/2024 8:12 AM EDT [facility] [address] [place] [address] [email or web address] [email or web address] Nursing Notes: Roshni Murrell LPN 07/17/24 0815 Signed Nursing Notes: CC: Chief Complaint Patient presents with Urinary Tract Infection Symptoms Brief Hx: Patient is trouble to start when voiding, hurts getting the stream started, odor. Patientsaid he has a history of kidney stones Duration/Onset: Thursday OTC meds: nothing Accompanied by: self Jaswinder Shannon is a 53 year old male who presents with urinary tract symptoms. Patient was accompanied by Self. HPI: Severity of Symptoms: Minimal Modifying Factors (what was done since onset of Symptoms): fluids Timing (How often does it occur): 4 days ROS: Constitutional symptoms: no fever, no weight [...] constipation Urinary symptoms: DYSURIA, BURNING, FREQUENCY, URGENCY, and PRESSURE Symptom duration of 4 day(s) Reports fluid [...] Risk (04/12/2024) Received from [facility] Ambulatory Overall Financial Resource Strain (CARDIA) Difficulty of Paying Living Expenses: Somewhat hard Food Insecurity: No Food Insecurity (04/12/2024) Received from [facility] Ambulatory Hunger Vital Sign Worried About Running Out of Food in the Last Year: Never true Ran Out of Food in the Last Year: Never true Transportation Needs: No Transportation Needs (04/12/2024) Received from [facility] Ambulatory PRAPARE - Transportation Lack of Transportation (Medical): No Lack of Transportation (Non-Medical): No Social Connections: Unknown (04/19/2024) Social Connections How often do you feel lonely or isolated from those around you? (Adult - for ages 18 years and over): Not on file Housing Stability: Not on file Current Outpatient Medications Medication Sig Dispense Refill Ciprofloxacin HCl 500 MG Oral Tablet (Cipro) Take 1 Tablet by mouth in the morning and 1 Tablet before bedtime. Do all this for 10 days. 20 Tablet 0 levothyroxine (LEVOXYL) 100 MCG Tablet Take 1 Tablet by mouth daily first thing in the morning. Modafinil 100 MG Oral Tablet 2 times a day. Naproxen 500 MG Oral Tablet 1 Tablet 2 times a day with morning and evening meals. Etclecdjgi-NECY-Auxtztih 50-325-40 MG Oral Tablet (Fioricet) Take 1 Tablet by mouth. glipiZIDE 10 MG Oral Tablet (Glucotrol) Take by mouth. (Patient not taking: Reported on 03/10/2024) Lisinopril-hydroCHLOROthiazide 20-12.5 MG Oral Tablet Take 1 [...] orders placed or performed in visit on 07/28/23 GROUP A STREP PCR Result Value Ref Range Group A Strep PCR Result Negative Negative. No Group A Streptococcus detected by PCR (amplified probe). STREP A SCREEN, POINT OF CARE (ENTER/EDIT) Result Value Ref Range Strep A Result Negative Negative Procedural Control Valid? Yes Lot Number [id number] Expiration Date 01/04/25 OBJECTIVE: BP 137/82 | Pulse 88 | Temp 36.3 C (97.4 F) (Tympanic) | Resp 18 | SpO2 99% Wt Readings from Last 1 Encounters: 03/10/24 115.7 kg (255 lb) General appearance: awake, alert, no apparent distress Abdominal Exam: back: NEG CVA tenderness and abd: +suprapubic tenderness to palpation, no R/R/G, +BS Respiratory: clear to auscultation, no rhonchi, no wheezes, and no crackles Heart: regular rate, regular rhythm, no murmurs , and no rubs Assessment/Plan: Acute cystitis with hematuria (Primary) - CULTURE, URINE, QUANTITATIVE - Ciprofloxacin HCl 500 MG Oral Tablet (Cipro); Take 1 Tablet by mouth in the morning and 1 Tablet before bedtime. Do all this for 10 days. UTI symptoms - URINALYSIS, POINT OF CARE (ENTER/EDIT) Reviewed medication regime and side effects Reviewed dipstick results with patient in office- will send culture Encourage fluid intake Practice good hand hygiene OTC tylenol/ibuprofen per box instructions for comfort Monitor for signs/symptoms of infection: fever, n/v, SOB, CP, sweats, chills Patient stated understanding and had no other issues at this time Follow Up: Return if symptoms worsen or fail to improve. [facility] [address] [place] [address] documented in this encounter Nursing Notes * Roshni Murrell LPN - 07/17/2024 8:12 AM EDT Nursing Notes: CC: Chief Complaint Patient presents with Urinary Tract Infection Symptoms Brief Hx: Patient is trouble to start when voiding, hurts getting the stream started, odor. Patientsaid he has a history of kidney stones Duration/Onset: Thursday OTC meds: nothing Accompanied by: self documented in this encounter Plan of Treatment Pending Results Name Type Priority Associated Diagnoses Date /Time CULTURE, URINE, QUANTITATIVE Lab Routine Acute cystitis with hematuria 07/17/2024 8:12 AM EDT Health Maintenance Due Date Last Done [...] Associated Diagnosis Comments URINALYSIS, POINT OF CARE (ENTER/EDIT) Routine 07/17/2024 UTI symptoms documented in this encounter Results * (ABNORMAL) URINALYSIS, POINT OF CARE (ENTER/EDIT) (07/17/2024) Color, Urine Dark Yellow(A) Yellow or Light Yellow Clarity, Urine Turbid(A) Clear Glucose, Urine 100(A) Negative mg/dL Bilirubin, Urine Negative Negative Ketone, Urine Negative Negative mg/dL Specific [place], Urine 1.030 1.003 - 1.030 Blood, Urine Large(A) Negative pH, Urine 5.5 5.0 - 7.5 units Protein, Urine >=300(A) Negative mg/dL Urobilinogen, Urine 0.2 0.2 - 1.0 mg/dL Nitrite, Urine Negative Negative Esterase, Urine Small(A) Negative Urine 07/17/2024 Lexie M[facility] POINT OF CARE TEST ENTER/EDIT ORDERABLES documented in this encounter Visit Diagnoses Diagnosis Acute cystitis with hematuria- Primary Acute cystitis UTI symptoms Other symptoms involving urinary system documented in this encounter Care Teams Picker Feeder Relationship Specialty Start Date End Date Rob Mcdaniel PA-C [address] [place] [address] PCP - General Physician Street Roller Engineer 09/21/22 documented as of this encounter"
--- OUTSIDE RECORDS SUMMARY | 2024-10-18 11:24 | External Medical Summary ---
Author Name Unknown Address Unknown Organization [id number]:[facility] [place] [address] [place] [address] Laboratory Report Ordering Provider Test Date Status YESSENIACARLOS KWONYOUSIF 07/17/2024 08:12:36 Final Observation Date Value Abnormality Reference (Units ) Status Bacteria identified in Specimen by Culture 07/17/2024 08:12:36 [id number]^ENTEROC OCCUS SPECIES Abnormal Final >100,000 colonies/mL Enteroc occus species Performing Location [facility] [place] [address] [place] [address] Ordering Provider Test Date Status YESSENIA,ALEXANDER 07/17/2024 08:12:36 Final Observation Date Value Abnormality Reference (Units ) Status Ampicillin 07/17/2024 08:12:36 <=2 Susceptible Final Nitrofurantoin susceptibility 07/17/2024 08:12:36 <=16 Susceptible Final Tetracyclinesusceptibility 07/17/2024 08:12:36 >=16 Resistant Final Vancomycinsusceptibility 07/17/2024 08:12:36 1 Susceptible Final Test: Culture, Urine, Quanti tative
Specimen Source: Urine, Clean Catch
Specimen Type: Urine
Specimen Date: 07/17/2024 0812
Result Date: 07/19/2024 1448
Result Status: Final result
Abnormal: Yes
Resulting Lab: [facility] [place]
[address]
[place] [address]

CULTURE

>100,000 colonies/mL Enterococcus species (Abnormal)

SUSCEPTIBILITY

Enterococcus
species
METHOD MICROBROTH
DILUTIONS

AMPICILLIN <=2 Susceptible
NITROFURANTOIN <=16 Susceptible
TETRACYCLINE >=16 Resistant
VANCOMYCIN 1 Susceptible

null Performing Location [facility] [place] [address] [facility] [place] [facility] [address]
--- OUTSIDE RECORDS SUMMARY | 2024-10-18 11:24 | External Medical Summary | Summary of Care ---
Author Name Unknown Organization [facility] Address [address] [facility] [place] [address] Phone [phone] Care Team Providers Care Boot Maker Name Role Phone Rob Mcdaniel PA-C Primary Care Provider Reason for Visit * Reason Comments Urinary Tract Infection Symptoms * Auth/Cert Specialty Diagnoses / Procedures Referred By Brandon martin Referred To Contact [facility] [place] [id number] Referral ID Status Reason Start Date Expiration Date Visits Re quested Visits Authorized [id number] Encounter Details Date Type Department [...] day with morning and evening meals. Active Padqiheyiq-QAFV-Wmn feine 50-325-40 MG Oral Tablet (Fioricet) Take [...] Sandoval CRNP - 07/17/2024 8:[address] [facility] [address] [place] [address] [email or web address] [email or web address] SUBJECTIVE Nursing Notes: Roshni Murrell LPN 07/17/24 [...] a day with morning and evening meals. Uvmfdlqokm-MWCR-Zdvgtmtr 50-325-40 MG Oral Tablet (Fioricet) Take 1 [...] worsen or fail to improve. [facility] [address] [place] [address] documented in this encounter Nursing Notes * [...] Negative Ketone, Urine Negative Negative mg/dL Specific [place], Urine 1.030 1.003 - 1.030 Blood, Urine [...] system documented in this encounter Care Teams Boot Maker Relationship Specialty Start Date End Date Rob Mcdaniel PA-C [address] [place] [address] PCP - General Physician Oil Field Laborer 09/21/22 documented as of this encounter"
[2024-10-18] MEDS: fentaNYL citrate PF 100 MCG/2 ML VIAL IV PRN (11:50)
[2024-10-18] MEDS ORDERED: HYDROmorphone INJ 2 MG/ML SYR/VIAL IV PRN (12:24)
[2024-10-18] MEDS: HYDROmorphone INJ 1 MG/ML SYRINGE ONE (12:25)
[2024-10-18] MEDS ORDERED: METOCLOPRAMIDE HCL INJ 5 MG/ML 2 ML VIAL IV PRN (13:10)
[2024-10-18] MEDS ORDERED: PHARMACY GLYCEMIC MGMT CONSULT PRN (13:10)
[2024-10-18] MEDS ORDERED: LORazepam 2 MG/1 ML VIAL IV PRN (13:10)
[2024-10-18] MEDS ORDERED: SOD PHOSPHATE/SOD BIPHOSPHATE ENEMA 132 ML BTL PR PRN (13:10)
[2024-10-18] MEDS ORDERED: HYDROmorphone INJ 0.5 MG/0.5 ML SYR IV PRN (13:10)
[2024-10-18] MEDS ORDERED: KETOROLAC 30 MG/ML VIAL IV PRN (13:10)
[2024-10-18] MEDS ORDERED: hydrOXYzine HCl 25 MG TAB PO PRN (13:10)
[2024-10-18] MEDS ORDERED: DO NOT ADMINISTER PNEUMOCOCCAL VACCINE PRN (13:10)
[2024-10-18] MEDS ORDERED: PROMETHAZINE 12.5 MG/50.5 ML BAG IV PRN (13:10)
[2024-10-18] MEDS ORDERED: ALUMINUM/MAGNESIUM SUSP 30 ML UDC PO PRN (13:10)
[2024-10-18] MEDS ORDERED: FAMOTIDINE 20 MG TAB PO PRN (13:10)
[2024-10-18] MEDS ORDERED: DO NOT ADMINISTER FLU VACCINE PRN (13:10)
[2024-10-18] MEDS ORDERED: NALOXONE HCL 0.4 MG/1 ML VIAL/CARP IV PRN (13:10)
[2024-10-18] MEDS ORDERED: bisacodyL 10 MG SUPP PR PRN (13:10)
[2024-10-18] MEDS: ALLERGY Noted to ORDERED Medication SCH (13:16)
[2024-10-18] MEDS ORDERED: CARBOHYDRATES FOR HYPOGLYCEMIA PO PRN (13:30)
[2024-10-18] MEDS ORDERED: GLUCOSE 40% GEL 15 GM TUBE PO PRN (13:30)
[2024-10-18] MEDS ORDERED: GLUCOSE 10 TAB/TUBE PO PRN (13:30)
[2024-10-18] MEDS ORDERED: GLUCAGON FOR INJ 1 MG VIAL SQ PRN (13:30)
[2024-10-18] MEDS ORDERED: DEXTROSE 50% 50 ML SYRINGE IV PRN (13:30)
[2024-10-18] MEDS ORDERED: ONDANSETRON 4 MG OD TAB PO PRN (14:00)
--- NOTE | 2024-10-18 14:05 | Hospitalist Consultation ---
Date of Consultation October 18, 2024 Assessment & Plan (1) Lumbosacral spondylosis with radiculopathy: S/p L4-L5 decompression and fusion 10/18 - Pain management, VTE PPx, and bowel regimen per orthopedics team - pre-op H&H stable, renal function stable, EKG NSR - Clindamycin x 2 bags post-op - monitor for signs of urinary retention -> has not voided post-operatively - bladder scan prn - AM CBC and BMP - PT to eval (2) Hypoxia: Currently being weaned - on 2L NC 2/2 anesthetic agents - wean O2 as tolerated (3) T2DM (type 2 diabetes mellitus): Controlled on metformin and Ozempic at home - hyperglycemic postoperatively, glucose currently 257 - was given 8mg of dexamethasone - Most recent A1C 7.3 - SSI with target BSG range 110-140mg/dL, CF 15, carb ratio 5 - T2DM diet - BSG ACHS - pharmacy glycemic consult (4) Urinary tract infection: being treated for UTI in outpatient setting Patient stated that he has a bladder stone and is undergoing a scope with urology November 28 Started 10 day course of Macrobid 10/12; continue (5) HTN (hypertension): Stable postoperatively Continue lisinopril/HCTZ in a.m. 10/19 (6) Fibromyalgia: continue nortriptyline Plan Chronic stable diagnoses: hypothyroidism - continue levothyroxine HLD - continue statin excessive sleep drive - continue modafinil hepatic steatosis - follows with GI out pt chronic headaches - continue mag oxide VTE ppx: SCDs and TEDs Diet: increase to T2DM as tolerated Supervising Physician Co-Signing Physician Notes I personally saw and examined the patient. I independently reviewed the labs, problem list, medication list, past medical history and family history. I verified all randolph points and agree with Slime Warner PA-C with the following exceptions and/or additions: 53 year old male POD#0 lumbar spine decompression. No acute concerns from the patient. Notes having significant issues with urinary retention pre operatively with recurrent UTIs. No current symptoms suggestive of UTI but remains on Macrobid from UTI diagnosed last week. O/E HS RRR, no murmurs, Chest CTAB, Abdo SNT, no CVA tenderness A/P VTE / Pain / bowel management per primary ortho spine team, monitor closely for urine retention as this has been a recent issue UTI - remains on Macrobid until definitive bladder stone treatment where it is suspected to be seeding recurrent infection from. Repeat UA recommended despite no symptoms at this time if active bacteruria would escalate antibiotics in setting of spine surgery Otherwise as above History of Present Illness Reason for Consultation: post op consult Requesting Physician: Dr. Lamb Attending Physician: Saleem Lamb, DO History of Present Illness Patient is a 53-year-old male with past history of type II DM, chronic pain/fibromyalgia, hyperlipidemia, hypertension, hypothyroidism, hepatic steatosis, chronic headaches, and tobacco use. He was seen today as a postop consult after an L4-L5 decompression and fusion with Dr. Lamb 10/18. He is mildly hypoxic postoperatively, has been weaned from 4 L NC to 2 L NC currently. He is doing well postoperatively, eating on exam without difficulty. Denies nausea. stated he does feel dizzy but it is improved in. He stated that his back pain that he had prior to surgery is now gone he says 10 surgical pain. He has not urinated with postoperatively. He does not use oxygen at baseline. He does have a history of chewing tobacco, would like a nicotine patch. Patient denies dyspnea, chest pain, cough, abdominal pain, nausea, vomiting, numbness, tingling. He is currently undergoing treatment with Macrobid for a UTI. He stated he has a bladder stone which she is undergoing a scope from urology November 28. Allergies Allergy/AdvReac Type Severity Reaction Status Date / Time aspirin Allergy Severe Anaphylaxis Verified 10/18/24 08:07 ibuprofen Allergy Severe Hives Verified 10/18/24 08:07 Penicillins Allergy Unknown mother was Verified 10/18/24 08:07 allergic Home Medications Medication Instructions Recorded Confirmed Type cholecalciferol (vitamin D3) 25 50 mcg PO DAILY 09/20/24 10/18/24 History mcg (1,000 unit) capsule cranberry 500 mg capsule 1,000 mg PO QAM 09/20/24 10/18/24 History docusate sodium 100 mg capsule 100 mg PO DAILY 09/20/24 10/18/24 History (Stool Softener) levothyroxine 100 mcg tablet 100 mcg PO QAM 09/20/24 10/18/24 History lisinopril 20 2 tab PO QAM 09/20/24 10/18/24 History mg-hydrochlorothiazide 12.5 mg tablet (Zestoretic) magnesium oxide 420 mg tablet 420 mg PO HS 09/20/24 10/18/24 History metformin 1,000 mg tablet 1,000 mg PO BID 09/20/24 10/18/24 History modafinil 200 mg tablet (Provigil) 200 mg PO QAM 09/20/24 10/18/24 History naproxen 500 mg tablet (Naprosyn) 500 mg PO QAM 09/20/24 10/18/24 History nicotine 7 mg/24 hr daily 1 patch transdermal DAILY 09/20/24 09/20/24 History transdermal patch nitrofurantoin 100 mg capsule 100 mg PO BID 09/20/24 10/18/24 History nortriptyline 50 mg capsule 50 mg PO HS 09/20/24 10/18/24 History pregabalin 50 mg capsule 75 mg PO BID 09/20/24 10/18/24 History rosuvastatin 20 mg tablet 20 mg PO HS 09/20/24 10/18/24 History semaglutide 1 mg/dose (4 mg/3 mL) 1 mg subcut WK 09/20/24 10/18/24 History subcutaneous pen injector (Ozempic) oxycodone 5 mg tablet 5 mg PO Q6H PRN pain #30 tabs 10/18/24 Rx tramadol 50 mg tablet 50 mg PO Q6H PRN pain, moderate 10/18/24 Rx #30 tabs Patient History Medical History (Updated 10/18/24 @ 14:47 by Slime Warner PA-C) Lumbar foraminal stenosis Lumbar disc disease Cirrhosis "Mild" Hx alcoholism Neuropathy Suspected sleep apnea states he stops breathing while asleep, + snoring No formal sleep study Diabetes Bladder stone Surgical History Hx of colonoscopy Hx of rotator cuff surgery Right Social History Smoking Status: Never smoker Tobacco Type: Smokeless Tobacco (Dip or Chew) Second Hand Exposure: No; Do You Dip or Chew Tobacco: Yes (Daily- Advised none DOS); Tobacco Cessation Education Requested by Patient: No Hx Alcohol Use: Yes (Hx heavy ETOH use in 2001/hx alcoholism) Alcohol type: beer Hx Substance Use: No Preferred Language: Ghanaian Communication Ability: Effective Overhauler Helper Required: No Beliefs That Will Affect Care: None Current Living Situation: Spouse Other Information That Helps Us Care for You: No Feels Safe at Home: Yes Safety Concerns: Feels Safe At This Time Assistive Devices: Denture - Upper, Denture - Lower, Glasses and Hearing Aid - Bilateral Review of Systems Review of Systems: see HPI Physical Exam Physical Exam: The patient is awake, alert and oriented 3, well developed and well nourished, normocephalic and atraumatic, in no acute distress. Non-toxic appearing. HEENT- EOMI, mucous membranes moist. Hearing grossly intact. Heart-normal S1 and S2. No murmurs, rubs or gallops. Lungs-clear bilaterally, no respiratory distress, no accessory muscle use. Abdomen-normal bowel sounds and soft. No ascites noted. Non-tender. 2L O2. Extremities- no clubbing, cyanosis, or edema. Rheumatologic-normal range of motion. Psychiatric-normal affect. Results & Data Results & Data Vital Signs (Past 12 Hours) Vital Signs Temp Pulse Pulse Resp BP Pulse Ox O2 Del Method 10/18/24 13:33 36.6 C 96 H 16 118/68 95 Nasal Cannula 10/18/24 13:00 Nasal Cannula 10/18/24 13:00 37.0 C 94 H 16 123/74 95 Nasal Cannula 10/18/24 12:50 85 18 123/78 95 Nasal Cannula 10/18/24 12:40 89 16 125/81 95 Nasal Cannula 10/18/24 12:30 36.8 C 85 16 116/77 96 Nasal Cannula 10/18/24 12:20 90 20 123/78 98 Nasal Cannula 10/18/24 12:10 96 H 13 138/86 99 Oxymask 10/18/24 12:00 95 H 12 126/80 95 Oxymask 10/18/24 11:50 99 H 12 144/85 H 98 Oxymask 10/18/24 11:40 102 H 18 142/87 H 97 Oxymask 10/18/24 11:30 100 H 19 146/79 H 94 Oxymask 10/18/24 11:21 36 C L 96 H 13 128/79 97 Oxymask 10/18/24 08:12 36.7 C 81 18 139/90 96 Room Air O2 Flow Rate 10/18/24 13:33 2 10/18/24 13:00 3 10/18/24 13:00 3 10/18/24 12:50 3 10/18/24 12:40 3 10/18/24 12:30 3 10/18/24 12:20 4 10/18/24 12:10 6 10/18/24 12:00 6 10/18/24 11:50 6 10/18/24 11:40 8 10/18/24 11:30 10 10/18/24 11:21 10 10/18/24 08:12 PG Care Time/CCT Total # of Minutes Spent Total Time Spent with Patient: Total time spent is greater than 50% in coordination of care (as documented) at patient's floor/unit and/or counseling patient: Coding Level of Care Code 77799 IN/OBS CONSULT LVL 4,60M Diagnoses Lumbosacral spondylosis with radiculopathy M47.27 Hypoxia R09.02 T2DM (type 2 diabetes mellitus) E11.9 Urinary tract infection N39.0 HTN (hypertension) I10 Fibromyalgia M79.7
[2024-10-18] MEDS: INSULIN ASPART PER UNIT CHARGE SC SCH (14:23)
[2024-10-18] MEDS: LANTUS PER UNIT CHARGE SC STA (14:23)
[2024-10-18] MEDS: oxyCODONE HCL IR 5 MG TAB (IMMEDIATE RELEASE) PO PRN (15:25)
--- NOTE | 2024-10-18 15:25 | Pharmacy Report ---
Pharmacy Glycemic Short Note 2 - Date of Service October 18, 2024 - Glycemic Short BSG Results (Last 24 hours): 10/18/24 10/18/24 10/18/24 08:19 11:28 13:41 POC Glucose 180 H 219 H 257 H OUTPATIENT ANTIDIABETIC REGIMEN: * Metformin 1000 mg PO BIDM * Ozempic 1 mg SC every Thursday HbA1c: * 7.3% (09/27/24) ASSESSMENT: * 53 yo M admitted on 10/18/24 postoperatively following a spinal fusion with Dr. Lamb. Pharmacy has been consulted to assist with inpatient glycemic management. Patient is a Type 2 diabetic as an outpatient. Please refer to outpatient regimen and most recent HbA1c above. * Received 8 mg of IV dexamethasone perioperatively. No ongoing steroids. Ordered at [facility] diet. * Preop BSG was 180 while postop BSG was 219 mg/dL. * Will start Novolog based on weight/stress of 3. Give a one time dose of Lantus 25 units now. Reassess basal in AM. PLAN FOR INPATIENT GLYCEMIC CONTROL: * Hold outpatient oral diabetes medications * Basal insulin * Lantus 25 units SC x 1 now * Bolus insulin * NovoLog per scale ACHS or Q6hrs while NPO * Goal Range: Low 110 mg/dL - High 140 mg/dL * Correction Factor: 15 mg/dL/unit * Nutritional / Prandial insulin per carb ratio of 1 unit per 5 grams CHO consumed
[2024-10-18] MEDS ORDERED: ACETAMINOPHEN 1,000 MG/100 ML VIAL IV PRN (16:00)
[2024-10-18] MEDS: traMADol HCL 50 MG TABLET PO PRN (16:16)
[2024-10-18] MEDS: HYDROmorphone INJ 1 MG/ML SYRINGE IV PRN (17:08)
[2024-10-18] MEDS: CLINDAMYCIN/D5W 600 MG/50 ML BAG IV SCH (21:32)
[2024-10-18] MEDS: DOCUSATE SODIUM/SENNA 50/8.6MG TAB PO SCH (21:35)
[2024-10-18] MEDS: PREGABALIN 75 MG CAP PO SCH (21:36)
[2024-10-18] MEDS: NORTRIPTYLINE HCL 25 MG CAP PO SCH (21:36)
[2024-10-18] MEDS: MAGNESIUM OXIDE 400 MG TAB PO SCH (21:36)
[2024-10-18] MEDS: ROSUVASTATIN CALCIUM 20 MG TAB PO SCH (21:36)
[2024-10-18] MEDS: NITROFURANTOIN MONOHYDRATE 100 MG CAP PO SCH (21:36)
[2024-10-18 22:09] LABS: Appearance Urine Clear (Clear); Bacteria Urine Automated None Seen (None Seen); Bilirubin Urine Negative (Negative); Blood Urine 1+ (Negative); Color Urine Yellow; Glucose Urine UA 3+ (Negative); Ketones Urine Negative (Negative); Leukocyte Esterase Urine Trace (Negative); Nitrite Urine Negative (Negative); Protein Urine Trace (Negative); Specific Gravity Urine 1.027 (1.000-1.030); Urobilinogen Urine Negative (Negative); pH Urine 5.5 (4.5-7.5)
[2024-10-18] MEDS ORDERED: Nursing to Pharmacy Communication SCH (22:15)
[2024-10-18 22:24] LABS: Mucus Urine Present (None Prsent)
[2024-10-19 04:30] LABS: Basophils # (auto) 0.02 K/uL (0.00-0.20); Basophils % (auto) 0.2 %; Eosinophils # (auto) 0.12 K/uL (0.00-0.50); Eosinophils % (auto) 1.2 %; Hematocrit (blood only) 33.6 % (42.0-52.0); Hemoglobin 11.6 g/dl (14.0-18.0); Immature Granulocytes # (auto) 0.03 K/uL (0.01-0.20); Immature Granulocytes % (auto) 0.3 %; Lymphocytes # (auto) 1.24 K/uL (1.20-3.40); Lymphocytes % (auto) 12.3 %; Mean Corpuscular Hemoglobin 28.1 pg (25.0-34.0); Mean Corpuscular Hgb Conc 34.5 g/dL (32.0-36.0); Mean Corpuscular Volume 81.4 fL (80.0-100.0); Mean Platelet Volume 9.4 fL (9.4-12.4); Monocytes # (auto) 0.83 K/uL (0.11-0.59); Monocytes % (auto) 8.2 %; Neutrophils # (auto) 7.86 K/uL (1.40-6.50); Neutrophils % (auto) 77.8 %; Platelet Count 258 K/uL (130-400); RDW Coefficient of Variation 12.6 % (11.5-14.5); RDW Standard Deviation 36.7 fL (36.4-46.3); Red Blood Count 4.13 M/uL (4.70-6.10)
[2024-10-19 04:47] LABS: BUN Creatinine Ratio 18.2 (10-20); Calcium 8.9 mg/dl (8.6-10.3); Creatinine Clr Calc Pharmacy 164.1 ml/min; Potassium 3.9 mmol/L (3.5-5.1)
[2024-10-19] MEDS: POLYETHYLENE (MIRALAX) 17 GM PACK PO SCH (05:30)
[2024-10-19] MEDS: LEVOTHYROXINE SODIUM 100 MCG TABLET PO SCH (05:33)
[2024-10-19] MEDS: ACETAMINOPHEN 500 MG TAB PO PRN (06:04)
[2024-10-19] MEDS: NICOTINE 14 MG/24 HR PATCH TD SCH (07:47)
[2024-10-19] MEDS: CHOLECALCIFEROL 25 MCG (1000 UNITS) TAB PO SCH (07:49)
[2024-10-19] MEDS: LANTUS PER UNIT CHARGE SC ONE (08:52)
[2024-10-19] MEDS ORDERED: NON-FORMULARY MEDICATION (Cranberry 500 mg Capsule) PO SCH (09:00)
[2024-10-19] MEDS: modafiniL 100 MG TAB PO SCH (09:05)
--- NOTE | 2024-10-19 09:41 | Pharmacy Report ---
Pharmacy Glycemic Short Note 2 - Date of Service October 19, 2024 - Glycemic Short BSG Results (Last 24 hours): 10/18/24 10/18/24 10/18/24 11:28 13:41 16:26 Glucose POC Glucose 219 H 257 H 248 H 10/18/24 10/19/24 10/19/24 20:20 03:36 07:05 Glucose 104 H POC Glucose 178 H 154 H OUTPATIENT ANTIDIABETIC REGIMEN: * Metformin 1000 mg PO BIDM * Ozempic 1 mg SC every Thursday HbA1c: * 7.3% (09/27/24) ASSESSMENT: 10/19: * Jaswinder received 66 units of insulin yesterday, 25 units basal + 41 units bolus. Postop BSG last evening were: 248-178 mg/dL. * Fasting BSG this AM is slightly above goal at 154 mg/dL. Hyperglycemia last evening is likely related to steroids received perioperatively. No ongoing steroids ordered. Will give a one-time dose of basal at 0.14 units/kg which is a 40% reduction in basal dose from yesterday. Reassess basal dose tomorrow morning, if necessary. * No change to Novolog parameters at this time. If no plans for more contrast, can consider starting home metformin in the coming days prior to discharge. 10/18: * 53 yo M admitted on 10/18/24 postoperatively following a spinal fusion with Dr. Lamb. Pharmacy has been consulted to assist with inpatient glycemic management. Patient is a Type 2 diabetic as an outpatient. Please refer to outpatient regimen and most recent HbA1c above. * Received 8 mg of IV dexamethasone perioperatively. No ongoing steroids. Ordered at [address] * Preop BSG was 180 while postop BSG was 219 mg/dL. * Will start Novolog based on weight/stress of 3. Give a one time dose of Lantus 25 units now. Reassess basal in AM. PLAN FOR INPATIENT GLYCEMIC CONTROL: * Hold outpatient oral diabetes medications * Basal insulin * Lantus 15 units SC x 1 this AM * Bolus insulin * NovoLog per scale ACHS or Q6hrs while NPO * Goal Range: Low 110 mg/dL - High 140 mg/dL * Correction Factor: 15 mg/dL/unit * Nutritional / Prandial insulin per carb ratio of 1 unit per 5 grams CHO consumed
--- NOTE | 2024-10-19 11:01 | Orthopedic Progress Note ---
Date of Service October 19, 2024 Assessment & Plan (1) Lumbosacral spondylosis with radiculopathy: Plan: At this time we will initiate physical therapy monitor his YENNIFER output over the discharge over the next few days. Admission and Anticipated Discharge Date Admission Date: October 18, 2024 Subjective Back pain controlled leg symptoms markedly improved Physical Exam Physical Exam: Patient is in the chair at the bedside peers comfortable. Good strength testing. Results & Data Vital Signs (Past 12 Hours) Vital Signs Temp Pulse Resp BP Pulse Ox O2 Del Method 10/19/24 07:55 Room Air 10/19/24 07:23 36.9 C 88 18 136/73 96 Room Air 10/19/24 02:28 36.4 C L 89 18 115/66 97 Room Air Queries Orthopedic Spine Obesity: Yes
--- NOTE | 2024-10-19 12:55 | Hospitalist Progress Note ---
Date of Service October 19, 2024 Assessment & Plan (1) Lumbosacral spondylosis with radiculopathy: Plan: S/p L4-L5 decompression and fusion 10/[address] Lamb - Pain management, VTE PPx, and bowel regimen per orthopedics team - pre-op H&H stable, renal function stable, EKG NSR - Clindamycin x 2 bags post-op - no further problems with urinary retention postop - acute blood loss anemia secondary to surgery. Hgb stable at 11.6, no indication for blood transfusion at this time - AM CBC and BMP - PT/OT (2) T2DM (type 2 diabetes mellitus): Plan: Controlled on metformin and Ozempic at home - hyperglycemic postoperatively, glucose currently 257 - was given 8mg of dexamethasone - Most recent A1C 7.3 - SSI with target BSG range 110-140mg/dL, CF 15, carb ratio 5 - T2DM diet - BSG ACHS - pharmacy glycemic consult (3) Urinary tract infection: Plan: being treated for UTI in outpatient setting Patient stated that he has a bladder stone and is undergoing a scope with urology November 28 Started 10 day course of Macrobid 10/12; continue (4) HTN (hypertension): Plan: Stable Continue lisinopril/HCTZ Plan Chronic stable diagnoses: hypothyroidism - continue levothyroxine HLD - continue statin excessive sleep drive - continue modafinil hepatic steatosis - follows with GI out pt chronic headaches - continue mag oxide Fibromyalgia - continue nortriptyline VTE ppx: SCDs and TEDs CODE STATUS: Full code Admission and Anticipated Discharge Date Admission Date: October 18, 2024 Supervising Physician Co-Signing Physician Notes RANDY Supervision Note: I did not personally see or examine the patient today, but I verified all randolph points of RANDY Winn's assessment and plan with the following exceptions/additions: None Subjective Patient seen and evaluated in bedside chair. He reports that his pre-op symptoms are "90% resolved." His postop surgical pain is not controlled at this time; RN to provide dose of oxycodone now. He has urinated without difficulty and passed gas postop; no BM yet. He is well-tolerating his diet. He worked with therapy earlier and states he did well, though his surgical sites were painful. Denies headache, chest pain, shortness of breath, nausea, lightheadedness. No additional complaints or concerns at this time. Physical Exam Physical Exam: General: No acute distress, nondiaphoretic, well-developed, well-nourished. Skin: The skin was without rashes, erythema, edema, or bruising. Cardiac: Regular rate and rhythm without murmurs gallops or rubs. Pulm: Clear to auscultation bilaterally without wheezes, rales or rhonchi. No respiratory distress. 98% on room air. Abdominal: Soft, nontender, nondistended. Bowel sounds present. Neuro: A&O x3. No focal neurological deficits. Results & Data Results & Data Vital Signs (Past 12 Hours) Vital Signs Temp Pulse Resp BP Pulse Ox O2 Del Method 10/19/24 07:55 Room Air 10/19/24 07:23 98.4 F 88 18 136/73 96 Room Air 10/19/24 02:28 97.5 F L 89 18 115/66 97 Room Air Laboratory Results Reviewed CBC Reviewed BMP Reviewed UA PG Care Time/CCT Total # of Minutes Spent Total Time Spent with Patient: Total time spent is greater than 50% in coordination of care (as documented) at patient's floor/unit and/or counseling patient: Coding Level of Care Code 24420 SUB INP/OBS CARE 2/35MIN Diagnoses Lumbosacral spondylosis with radiculopathy M47.27 T2DM (type 2 diabetes mellitus) E11.9 Urinary tract infection N39.0 HTN (hypertension) I10
[2024-10-19] MEDS: LORazepam 0.5 MG TAB PO PRN (16:10)
[2024-10-20 07:24] VITALS: RESP 18
[2024-10-20] MEDS: LISINOPRIL/HCTZ 20/12.5MG 1 TAB TAB PO SCH (07:39)
[2024-10-20 07:55] LABS: Hematocrit (blood only) 31.9 % (42.0-52.0); Hemoglobin 10.9 g/dl (14.0-18.0); Mean Corpuscular Hgb Conc 34.2 g/dL (32.0-36.0); Mean Platelet Volume 8.8 fL (9.4-12.4); Platelet Count 197 K/uL (130-400); RDW Coefficient of Variation 12.8 % (11.5-14.5); Red Blood Count 3.89 M/uL (4.70-6.10); White Blood Count 6.36 K/ul (4.8-10.8)
[2024-10-20 08:22] LABS: BUN Creatinine Ratio 16.7 (10-20); Calcium 8.4 mg/dl (8.6-10.3); Creatinine Clr Calc Pharmacy 164.1 ml/min
--- NOTE | 2024-10-20 08:55 | Orthopedic Progress Note ---
Date of Service October 20, 2024 Assessment & Plan (1) Lumbosacral spondylosis with radiculopathy: Plan: Jaswinder is postoperative day 2 status post lumbar decompression and fusion of L4- 5. Will work on pain control today. Continue with physical therapy. Maintain YENNIFER drain. DVT prophylaxis is in the form teds and SCDs. Anticipate discharge home tomorrow Admission and Anticipated Discharge Date Admission Date: October 18, 2024 Subjective Jaswinder is postoperative day 2 status post lumbar decompression and fusion of L4- 5. He is bit more back pain today. Leg symptoms improved. He is passing flatus but no bowel movement. YENNIFER drain output last shift was 30 cc. Yesterday in physical therapy ambulated 250 feet. Review of Systems Review of Systems: All systems reviewed & are unremarkable except as noted in HPI & below Physical Exam Physical Exam: He sitting in chair eating breakfast in no acute distress alert and oriented x 3 lumbar dressing is clean dry intact with functioning YENNIFER drain Strength intact bilateral lower extremities Results & Data Vital Signs (Past 12 Hours) Vital Signs Temp Pulse Resp BP Pulse Ox O2 Del Method 10/20/24 07:20 36.8 C 87 18 131/74 95 Room Air Queries Orthopedic Spine Obesity: Yes
[2024-10-20] MEDS: diphenhydrAMINE Capsule 25 MG CAP PO PRN (10:02)
--- NOTE | 2024-10-20 12:02 | Hospitalist Progress Note ---
Date of Service October 20, 2024 Assessment & Plan (1) Lumbosacral spondylosis with radiculopathy: Plan: S/p L4-L5 decompression and fusion 10/[address] Lamb - Pain management, VTE PPx, and bowel regimen per orthopedics team - Pre-op H&H stable, renal function stable, EKG NSR - Clindamycin x 2 bags post-op - No further problems with urinary retention postop - Acute blood loss anemia secondary to surgery. Hgb stable at 10.9, no indication for blood transfusion at this time - AM CBC and BMP - PT/OT (2) T2DM (type 2 diabetes mellitus): Plan: Controlled on metformin and Ozempic at home - hyperglycemic postoperatively, glucose currently 257 - was given 8mg of dexamethasone - Most recent A1C 7.3 - T2DM diet - BSG ACHS - SSI -- pharmacy glycemic consult (3) Urinary tract infection: Plan: Being treated for UTI in outpatient setting - Patient stated that he has a bladder stone and is undergoing a scope with urol ogy November 28 - Started 10 day course of Macrobid 10/12; continue (4) HTN (hypertension): Plan: Stable - Continue lisinopril/HCTZ Plan Patient is medically stable for discharge from hospital medicine's perspective. Given ongoing issues with pain control, will continue to follow overnight. Anticipate discharge 10/21/24. Chronic stable diagnoses: Hypothyroidism - continue levothyroxine HLD - continue statin Excessive sleep drive - continue modafinil Hepatic steatosis - follows with GI out pt Chronic headaches - continue mag oxide Fibromyalgia - continue nortriptyline VTE ppx: SCDs and TEDs CODE STATUS: Full code Admission and Anticipated Discharge Date Admission Date: October 18, 2024 Supervising Physician Co-Signing Physician Notes PA Supervision Note: I did not personally see or examine the patient today, but I verified all randolph points of RANDY Winn's assessment and plan with the following exceptions/additions: None Subjective Patient seen and evaluated at bedside. He reports "pain on and off." Pain does seem to be better controlled today compared to yesterday. He states he walked the halls earlier. He complained of some irritation from the tape around his incision earlier, and states this is now resolved since getting Benadryl. He denies shortness of breath, chest pain, headache, abdominal pain, nausea. He has not had a BM postop, but continues to pass gas. Well-tolerating his diet. Plans for discharge tomorrow. No additional complaints or concerns at this time. Physical Exam Physical Exam: General: No acute distress, nondiaphoretic, well-developed, well-nourished. Cardiac: Regular rate and rhythm without murmurs gallops or rubs. Pulm: Clear to auscultation bilaterally without wheezes, rales or rhonchi. No respiratory distress. 95% on room air. Abdominal: Soft, nontender, nondistended. Bowel sounds present. Neuro: A&O x3. No focal neurological deficits. Back: Lumbar dressing is clean, dry, intact. YENNIFER drain present. Extremities: Strength 5/5 LE bilaterally. Sensation intact and symmetric LE bilaterally. No edema noted. Results & Data Results & Data Vital Signs (Past 12 Hours) Vital Signs Temp Pulse Resp BP Pulse Ox O2 Del Method 10/20/24 08:00 Room Air 10/20/24 07:20 98.2 F 87 18 131/74 95 Room Air Laboratory Results Reviewed CBC Reviewed BMP PG Care Time/CCT Total # of Minutes Spent Total Time Spent with Patient: Total time spent is greater than 50% in coordination of care (as documented) at patient's floor/unit and/or counseling patient: Coding Level of Care Code 41128 SUB INP/OBS CARE 2/35MIN Diagnoses Lumbosacral spondylosis with radiculopathy M47.27 T2DM (type 2 diabetes mellitus) E11.9 Urinary tract infection N39.0 HTN (hypertension) I10
[2024-10-20] MEDS: MAGNESIUM HYDROXIDE SUSP 30 ML UDC PO PRN (17:29)
[2024-10-21 07:38] VITALS: BP 143/82; PULSE 93; TEMP 98.2; O2SAT 98
[2024-10-21 07:44] LABS: Hematocrit (blood only) 37.6 % (42.0-52.0); Hemoglobin 12.7 g/dl (14.0-18.0); Mean Corpuscular Hemoglobin 28.1 pg (25.0-34.0); Mean Corpuscular Hgb Conc 33.8 g/dL (32.0-36.0); Mean Corpuscular Volume 83.2 fL (80.0-100.0); Mean Platelet Volume 8.9 fL (9.4-12.4); Platelet Count 254 K/uL (130-400); RDW Coefficient of Variation 12.9 % (11.5-14.5); RDW Standard Deviation 38.9 fL (36.4-46.3); Red Blood Count 4.52 M/uL (4.70-6.10); White Blood Count 7.66 K/ul (4.8-10.8)
--- NOTE | 2024-10-21 11:31 | Discharge Summary ---
Date of Service October 21, 2024 Admission HPI Per Admitting Provider This is a 53-year-old male presents problems with diagnosis of failing course of nonoperative care is here for surgical intervention. Principal Diagnosis Lumbar spondylosis with radiculopathy Discharge Data Allergies Allergy/AdvReac Type Severity Reaction Status Date / Time aspirin Allergy Severe Anaphylaxis Verified 10/18/24 08:07 ibuprofen Allergy Severe Hives Verified 10/18/24 08:07 Penicillins Allergy Unknown mother was Verified 10/18/24 08:07 allergic Consultations 10/18/24 13:10 Consult Hospitalist Routine Procedures Performed Operation Date: 10/18/24 09:35 Actual Procedures p L4-L5 Decompression and Fusion, Spinal Cord Monitoring(Not Applicable) - Saleem Lamb DO Ordered Studies 10/18/24 06:30 FL lumbar spine 2-3V Routine Hospital Course (1) Lumbosacral spondylosis with radiculopathy: Patient underwent lumbar decompression fusion tolerated this well was taken orthopedic for postoperative. Postop he progressed appropriate. Leg pain improved. Back pain controlled. YENNIFER drain decreasing. Excellent strength testing. Subsidy discharged home. Discharge orders instructions from the chart for further view. Total Time Total Time Spent Total Time Spent (In Minutes): 20 minutes Discharge Plan Discharge Items Patient Disposition: Home - Self-Care Reason For Visit: Lumbar Disc Disease, Lumbar Foraminal Stenosis, Luz Discharge Diagnosis: Lumbar spondylosis with radiculopathy Activity: As commented below Non-emergency contact: Primary Care Provider Call non-emergency contact if: you have any medication questions Follow-up/Referrals: PCP,NO [Physician] - Diet: Regular Addtl Attending Provider Instructions: ACTIVITY RECOMMENDATIONS: SELF CARE INSTRUCTIONS AFTER THORACIC/LUMBAR FUSIONS 1. You may walk to your tolerance. It is good exercise for your legs and back. Expect some back and intermittent leg aches and pains. 2. You may perform "counter-top" level activities (make a sandwich, ken with a project, etc.). 3. No bending or lifting of more than 10 pounds or back twisting of any nature (roll like a log when turning in bed). 4. You may ride in a car for 20-30 minutes at a time. No driving until after your first visit with your doctor. 5. Frequent changes of position and restricting sitting to 30 minutes at a time will help limit the amount of back spasms and stiffness you may experience. 6. You may discontinue the use of ambulatory aids (cane, crutches, etc.) once your strength and confidence allow. 7. You may diagnostic imaging manager the shower and let water strike your incision when you arrive home at least once daily. Do not take a tub bath, sit in a hot tub or go into a swimming pool until after your first recheck in the office. 8. You may resume previous diet. SPECIAL CARE INSTRUCTIONS: VERY IMPORTANT TO READ AND REVIEW A. Your surgical incision has been closed with a cosmetic suture under the skin that will dissolve in about 6 weeks. In 14 days, you can use a pair of clean scissors and cut the suture that is left outside of the skin at the ends of your incision. 1. The small skin tapes can be removed 7 days after surgery if they have not fallen off by that point. 2. You may keep the wound open to air as much as possible to promote healing after post-op day number 5 unless told otherwise by your doctor. 3. If you think the wound looks like it is becoming infected (redness or worsening drainage) and/or you are experiencing fever, chill or worsening back pain and muscle spasms, contact the office so that we may evaluate you as soon as possible. B. Complications are uncommon, but please contact us if you have any signs or symptoms of: 1. wound infection (fever higher than 102.5 degrees F, redness, separation of wound, drainage, or increasing pain from the incision) 2. blood clots in legs (pain, swelling, redness and warmth in legs) 3. urinary tract infection (fever higher than 102.5 degrees F, burning upon urination or increased frequency of urination) 4. nerve problems (inability to walk on your toes or heels, numbness, loss of bowel or bladder control) 5. any other symptoms that concern you C. Please call the office at if you have any concerns or questions about your operation or recovery. D. No smoking! Smoking drastically decreases the chance of a solid fusion. E. Do not take any anti-inflammatory medications (Indocin, Advil, Motrin, Aspirin, Naprosyn, etc.) as these may inhibit the chance of a solid fusion. Tylenol is okay to take for pain. MANAGING PAIN AFTER SPINAL SURGERY 1. Narcotic medication is intended for short-term use and will be provided for surgical pain. Surgical pain usually lasts for a period of 4-6 weeks. Narcotic medication includes Percocet, Vicodin, Darvocet, Tylenol #3 or Lortab. 2. Longer-term pain is more appropriately treated with non-narcotic medication such as Tylenol ES. 3. Muscle spasm is not appropriately treated with narcotics. Muscle relaxers such as Soma, Flexeril or Skelaxin can be used along with Tylenol ES. 4. Remember that we all live with some "aches and pains". This is not unusual or uncommon after an injury or as we get older. a. Back pain is expected and may include muscle spasms for 4 to 6 weeks after surgery. The pain should gradually improve. If the pain worsens for no apparent reason, please contact the office. b. Intermittent leg pain may also be experienced and should not be concerned about unless it worsens for no apparent reason. If so, please contact the office. 5. We will provide appropriate medication within the normal guidelines of their prescribed use. We will also be very cautious and aware of potential abuse and extended duration of patients' medication needs. a. Pain medications are for your comfort and to assist with sleep and rest so that the tissue can heal. They are not provided in order to return to normal activity and should not be used through the day. To do so or worsening pain at night can result from ongoing tissue damage and development of tolerance to the prescribed medicine. 6. Please allow 2-3 days to process refills. Prescriptions will not be mailed but must be picked up at the office. FOLLOW UP VISIT: Keep your scheduled follow-up appointment. Any questions, please call the office at . Pending Studies at Discharge: No Stand-Alone Forms: My [employer], Smoking Cessation Medications and DC Order Prescriptions: New tramadol 50 mg tablet 50 mg PO Q6H PRN (Reason: pain, moderate) Qty: 30 0RF oxycodone 5 mg tablet 5 mg PO Q6H PRN (Reason: pain) Qty: 30 0RF Continued magnesium oxide 420 mg Tablet 420 mg PO HS lisinopril-hydrochlorothiazide [Zestoretic] 20-12.5 mg Tablet 2 tab PO QAM nitrofurantoin 100 mg Capsule 100 mg PO BID Rx Instructions: must administer with a meal/food levothyroxine 100 mcg Tablet 100 mcg PO QAM modafinil [Provigil] 200 mg Tablet 200 mg PO QAM metformin 1,000 mg Tablet 1,000 mg PO BID nortriptyline 50 mg Capsule 50 mg PO HS cholecalciferol (vitamin D3) 25 mcg (1,000 unit) Capsule 50 mcg PO DAILY rosuvastatin 20 mg Tablet 20 mg PO HS pregabalin 50 mg Capsule 75 mg PO BID docusate sodium [Stool Softener] 100 mg Capsule 100 mg PO DAILY cranberry 500 mg Capsule 1,000 mg PO QAM Rx Instructions: administer with meals nicotine 7 mg/24 hr Patch 24 Hour 1 patch TRANSDERMAL DAILY Ozempic 1 mg/dose (4 mg/3 mL) Pen Injector 1 mg SUBCUT WK Patient Comments: sundays Discontinued naproxen [Naprosyn] 500 mg Tablet 500 mg PO QAM Discharge Orders: Discharge Order (Routine); Ordered 10/21/24 Ordered By: Saleem Lamb Admission Data Admit Date/Time: 10/18/24 11:14 Attending Provider: Saleem Lamb Admit Provider: Saleem Lamb Primary Care Provider: Rob Mcdaniel Other Providers: Eloise Harris; [facility]
--- NOTE | 2024-10-24 14:53 | Anesthesiology Progress Note ---
Date of Service October 18, 2024 Anesthesia Post Procedure Pain Intensity Lower Back: Pain Intensity: 7 Transfer of Care Handoff Completed per policy Notes Mental Status: alert / awake / arousable and participated in evaluation Patient Amnestic to Procedure: Yes Nausea / Vomiting: adequately controlled Pain: adequately controlled Airway Patency, RR, SpO2: stable & adequate BP & HR: stable & adequate Hydration State: stable & adequate Anesthetic Complications: no major complications apparent and Pt Satisfied with anesthetic care
== END 2024-10-21 12:46 | disposition home or self-care (01) | DRG 402 ==
LOC: ASU 07:37 → 3W 11:14